=== PATIENT | female | born 1940 | race Caucasian/White ===

== ENCOUNTER 2018-07-20 18:46 | Inpatient (IN) | payer OTHER ==
[~2018-07-20] VITALS: Ht 152.4 cm; Wt 55.0 kg
[~2018-07-20 18:46] MED LIST: ARI10 PO; ATI2I IV; HEP5I SC; LIO10 PO; METOPROLOL TART25 M1 PO; VITAMIN B12500 MCG PO; ZOC20 PO
[2018-07-20 19:51] LABS: CALCIUM 11.1 mg/dL (8.5-10.1); CARBON DIOXIDE 25.1 mmol/L (21-32); CHLORIDE SERUM 105 mmol/L (98-107); CREATININE SERUM 0.8 mg/dL (0.6-1.0); GLUCOSE SERUM 141 mg/dL (74-106); POTASSIUM SERUM 3.4 mmol/L (3.5-5.1); SODIUM SERUM 142 mmol/L (136-145)
[2018-07-20 19:55] LABS: ALKALINE PHOSPHATASE 61 U/L (46-116); ALT/SGPT 47 U/L (14-59); AST/SGOT 63 U/L (15-37); BILIRUBIN TOTAL 1.3 mg/dL (0.20-1.00)
[2018-07-20 19:57] LABS: BASOPHIL % 0.4 % (0-2); PLATELET COUNT 160 x10^3mcL (130-400)
[2018-07-20 20:00] LABS: RED CELL DISTRIBUTION WIDTH 16.7 % (11.5-14.5)
[2018-07-20 20:01] LABS: ALBUMIN 3.2 g/dL (3.4-5.0)
[2018-07-20 22:52] LABS: CHOLESTEROL/HDL RATIO 4.5; MAGNESIUM 1.6 mg/dL (1.8-2.4); PHOSPHOROUS 1.8 mg/dL (2.5-4.9)
[2018-07-20 22:58] LABS: T3 TOTAL 1.09 ng/mL
[2018-07-20 23:22] VITALS: BP 164/69
[2018-07-20 23:32] VITALS: Ht 152.4 cm; Wt 55.0 kg
[2018-07-21 03:14] LABS: FREE T4 1.4 ng/dL (0.76-1.46); T4(THYROXINE) 11.7 ug/dL (4.7-13.3)
[2018-07-21 05:35] VITALS: BP 153/66
[2018-07-21 06:59] LABS: BASOPHIL % 0.5 % (0-2); PLATELET COUNT 135 x10^3mcL (130-400)
[2018-07-21 07:00] LABS: CALCIUM 9.7 mg/dL (8.5-10.1); CARBON DIOXIDE 24.2 mmol/L (21-32); CHLORIDE SERUM 108 mmol/L (98-107); CREATININE SERUM 0.6 mg/dL (0.6-1.0); GLUCOSE SERUM 112 mg/dL (74-106); MAGNESIUM 1.8 mg/dL (1.8-2.4); PHOSPHOROUS 1.6 mg/dL (2.5-4.9); POTASSIUM SERUM 3.3 mmol/L (3.5-5.1); RED CELL DISTRIBUTION WIDTH 16.6 % (11.5-14.5); SODIUM SERUM 142 mmol/L (136-145)
[2018-07-21 09:02] VITALS: BP 166/61
[2018-07-21 12:37] VITALS: BP 149/70
[2018-07-21 17:23] VITALS: BP 154/67
[2018-07-21 20:20] VITALS: BP 181/63
[2018-07-22 05:32] VITALS: BP 153/75
[2018-07-22 09:00] VITALS: BP 154/53
[2018-07-22 13:26] VITALS: BP 142/82
[2018-07-22 17:17] VITALS: BP 129/42
[2018-07-22 18:19] VITALS: BP 129/42
== END 2018-07-22 18:40 | DRG 689 ==
LOC: ED 18:46 → DU 21:48 → EDBEDREQ 21:52 → DU 22:55
PROVIDERS: Emergency Medicine; Family Medicine; ADMIT Internal Medicine Pulmonary Disease
DX: N39.0 Urinary tract infection, site not specified (principal); G93.41 Metabolic encephalopathy; E44.0 Moderate protein-calorie malnutrition; G35 Multiple sclerosis; E83.52 Hypercalcemia; E11.9 Type 2 diabetes mellitus without complications; E83.39 Other disorders of phosphorus metabolism; E83.42 Hypomagnesemia; R74.0 Nonspecific elevation of levels of transaminase and lactic acid dehydrogenase [LDH]; F03.90 Unspecified dementia, unspecified severity, without behavioral disturbance, psychotic disturbance, mood disturbance, and anxiety; Z68.24 Body mass index [BMI] 24.0-24.9, adult; Z79.84 Long term (current) use of oral hypoglycemic drugs
CPT/HCPCS: 82962; 83880; 84439; J0696; J1885; J3480; J7030; Q0092

== ENCOUNTER 2018-09-04 13:43 | Inpatient (IN) | payer OTHER ==
[~2018-09-04] VITALS: Ht 152.4 cm; Wt 47.2 kg
--- NOTE | 2018-09-04 13:47 | NUR ---
BROUGHT IN BY AMBULANCE. PT C/O FEELING SHAKY X24 HOURS. PT AFEBRILE, NO SOB, NO N/V, DENIES CP, STATES SHE HAS BACK PAIN. PER PT SHE HAS MS AND TAKES UNK MEDICATION, UNABLE TO RECALL NAME OF MEDICATION.
--- NOTE | 2018-09-04 14:37 | NUR ---
DIAPER FULL, NAYLA CARE DONE, PROTECTIVE OINT APPLIED, BUTTOCKS AND NAYLA AREA RED.
--- NOTE | 2018-09-04 14:38 | NUR ---
IO CATH USING 8FR CATH UA SAMPLE TO LAB, PT TOLERATED PROCEDURE.
[2018-09-04 14:59] LABS: microscopic required? YES; urine erythrocyte 2+ (NEGATIVE)
[2018-09-04 15:09] LABS: BASOPHIL % 1.4 % (0-2); PLATELET COUNT 168 x10^3mcL (130-400); RED CELL DISTRIBUTION WIDTH 14.2 % (11.5-14.5)
[2018-09-04 15:18] LABS: CALCIUM 11.4 mg/dL (8.5-10.1); CARBON DIOXIDE 24.9 mmol/L (21-32); CHLORIDE SERUM 107 mmol/L (98-107); GLUCOSE SERUM 121 mg/dL (74-106); POTASSIUM SERUM 3.8 mmol/L (3.5-5.1); SODIUM SERUM 141 mmol/L (136-145)
[2018-09-04 15:22] LABS: ALKALINE PHOSPHATASE 53 U/L (46-116); ALT/SGPT 43 U/L (14-59); AST/SGOT 67 U/L (15-37); BILIRUBIN TOTAL 0.68 mg/dL (0.20-1.00); LIPASE 90 IU/L (73-393); TOTAL PROTEIN, SERUM 7.6 g/dL (6.4-8.2)
--- NOTE | 2018-09-04 15:41 | NUR ---
DR ADAMS MADE AWARE OF PT/S VS.
--- NOTE | 2018-09-04 16:33 | NUR ---
PT SLEEPING ON ED GURNEY, RESPS E/U, NAD NOTED, EASILY ARROUSED, ON FULL CM, IN POSITION OF COMFORT.
--- NOTE | 2018-09-04 17:22 | NUR ---
REPORT GIVEN TO JOS BUI TO ASSUME CARE OF PT.
--- NOTE | 2018-09-04 17:30 | NUR ---
RECEIVED PT FROM ED VIA MARIA ELENA, CAME IN DUE TO WEAKNESS X10 DAYS. AAOX4. DENIES HEADACHE/DIZZINESS. FORGETFUL AT TIMES. ABLE TO FOLLOW COMMANDS. NO SOB NOTED, LUNG SOUNDS DIMINISHED ON AUSCULTATION, O2 SAT-94%, RA. DENIES CHEST PAIN/PRESSURE. C/O 6/10 ABDOMINAL PAIN, DENIES NAUSEA/VOMITING. ABDOMEN IS SOFT. VOIDS. W/ EXCORIATION AND BLANCHABLE ERYTHEMA ON THE BUTTOCKS, SCABS ON THE RUE AND ECCHYMOSIS ON RIGHT SHOULDER, EGG SEPARATOR. PLACED ON LOW AIR LOSS MATTRESS. SIDE RAILS UPX2. CALL LIGHT ON REACH. HOB ELEVATED AT 45 DEG. ENDORSED TO PRIMARY NURSE HAO INCLUDING EB=[id number]
[2018-09-04 17:51] VITALS: BP 175/91
[2018-09-04 18:00] VITALS: Ht 152.4 cm; Wt 47.2 kg
--- NOTE | 2018-09-04 18:29 | NUR ---
PT SITTING UP IN BED. NO ACUTE RESP DISTRESS NOTED ON RA. PT DENIES ANY PAIN AT THIS TIME. GIVEN PO MEDS. TOLERATED WELL. IV TO LW FLUSHED WELL. IV FLUIDS INFUSING ORDERED. PT BLOOD PRESSURE CHECKED WAS 191/103. GIVEN METOPROLOL PO. TOLERATED WELL. PT CHANGED AND REPOSITIONED SITTING UP IN BED. WILL ENDORSE TO FUND ACCOUNTING MANAGER RN. CALL LIGHT IN REACH. BED IN LOWEST POSITION.
--- NOTE | 2018-09-04 18:54 | NUR ---
PT SITTING UP IN BED. PT C/O GUERRERO. MEDICATED PER EMAR. WILL CONTINUE TO MONITOR. CALL LIGHT IN REACH. BED IN LOWEST POSITION.
--- NOTE | 2018-09-04 19:30 | NUR ---
AOX4. FORGETFUL. MED SURG. DENIES SHAKINESS/CHILLS AT THIS TIME. PULSES PALPABLE. NO EDEMA. BOWEL SOUNDS ACTIVE. INCONTINENT, CLEAN/DRY. C/O DYSURIA. GENERALIZED WEAKNESS. BLANCHABLE REDNESS TO BUTTOCKS, PETE. C/O HEADACHE, RECENTLY MEDICATED WITH TYLENOL BY DAY SHIFT RN. IV TO LH, PATENT AND INFUSING. BED IN LOWEST POSITION, 2 SIDE RAILS UP, CALL LIGHT IN REACH. INSTRUCTED TO CALL FOR ASSISTANCE.
[2018-09-04 20:49] VITALS: BP 107/88
--- NOTE | 2018-09-04 22:24 | NUR ---
PT HAD EPISODE OF INCONTINENCE. NAYLA CARE RENDERED. BLANCHABLE REDNESS NOTED TO SACRUM, LEFT PETE.
[2018-09-05 05:55] VITALS: BP 132/72
[2018-09-05 06:15] LABS: BASOPHIL % 0.1 % (0-2); PLATELET COUNT 148 x10^3mcL (130-400)
[2018-09-05 06:33] LABS: ALKALINE PHOSPHATASE 60 U/L (46-116); ALT/SGPT 45 U/L (14-59); AST/SGOT 60 U/L (15-37); BILIRUBIN TOTAL 0.43 mg/dL (0.20-1.00); CALCIUM 11.2 mg/dL (8.5-10.1); CARBON DIOXIDE 21.9 mmol/L (21-32); CHLORIDE SERUM 106 mmol/L (98-107); CREATININE SERUM 1.3 mg/dL (0.6-1.0); GLUCOSE SERUM 223 mg/dL (74-106); MAGNESIUM 1.7 mg/dL (1.8-2.4); POTASSIUM SERUM 4.2 mmol/L (3.5-5.1); SODIUM SERUM 139 mmol/L (136-145); TOTAL PROTEIN, SERUM 7.4 g/dL (6.4-8.2)
[2018-09-05 06:35] LABS: ALBUMIN 2.9 g/dL (3.4-5.0)
--- NOTE | 2018-09-05 06:48 | NUR ---
PT CONTINUES TO C/O DYSURIA PRIMARY CONCERN. NO ACUTE CHANGES. NO ACUTE DISTRESS NOTED. WILL ENDORSE TO ONCOMING RN
[2018-09-05 06:49] LABS: RED CELL DISTRIBUTION WIDTH 15.3 % (11.5-14.5)
--- NOTE | 2018-09-05 08:07 | NUR ---
ASSUMED CARE OF PATIENT. ALERT AND ORIENTED X4. S1 S2 SOUDNS NOTED. PULSES PALPABLE BILATERALLY, NO EDEMA NOTED. NO ADVERSE EFFECTS OF HEPARIN NOTED. LUNG SOUDNS DIMINISHED BILATERALLY, NO ADVENTITIOUS BREATH SOUNDS. BOWEL SOUDNS ACTIVE IN ALL 4 QQUADRANTS. COMPLAINING OF BURNING ON URINATION. GENERALIZED WEAKNESS. EVAL BY PT TODAY. NO COMPLAINTS OF PAIN. IV ON LFA PATENT AND INFSUING LR AT 50ML/HR. BED LOCKED AND IN LOWEST PSOTION. NONSKID SOCKS IN PLACE. CALL LIGHT WITHIN REACH. WILL CONTINUE TO MONITOR.
[2018-09-05 09:08] VITALS: BP 135/75
--- NOTE | 2018-09-05 09:50 | NUR ---
COMPLAINING OF HEADACHE. PRN TYLENOL PROVIDED.
--- NOTE | 2018-09-05 14:31 | NUR ---
ADL CARE PROVIDED. Z-GUARD APPLIED TO BUTTOCKS. PATIENT HAD BOWEL MOVEMENT DURING ADL CARE. STOOL HARD AND FORMED. PATIENT TURNED AND REPOSITIONED.
[2018-09-05 16:57] VITALS: BP 156/71
--- NOTE | 2018-09-05 18:45 | NUR ---
PATIENT SEEN RESTING IN BED. NO COMPLAINTS OF PAIN OR DISCOMFORT. RESPIRATIONS EVEN AND UNLABORED. WILL ENDORSE CARE TO ONCOMING RN.
--- NOTE | 2018-09-05 20:00 | NUR ---
SHIFT ASSESSMENT DONE, PT IS AAO X4 VERBAL FORGETFUL, COOPERATIVE AND CALM, SON AT BEDSIDE FOR VISIT, PT DENIES HEADACHE OR DIZZINESS, IVF INFUSING LR @ 50CC/HR IV ACCESS LFA PATENT NON INFIL, ON LOW AIRLOSS MATTRESS, REPOSITIONED TO COMFORT, PT DENIES PAIN, INCONTINENT KEEP DRY AND CLEAN, ATTENDED NEEDS CALL LIGHT AT REACH CONT TO MONITOR.
[2018-09-05 20:49] VITALS: BP 156/72
--- NOTE | 2018-09-05 21:25 | NUR ---
SPOKE TO DR. MAYO. MADE AWARE OF MG 1.7. REC'D ORDER FOR MAG RIDER 2G IVPB.
--- NOTE | 2018-09-05 22:54 | NUR ---
MG RIDER 2GMS HANGED ORDERED.
--- NOTE | 2018-09-06 00:31 | NUR ---
PT AWAKE ASKING FOR SLEEPING PILLS MEDS GIVEN PER PRN ORDER, PT ALSO C/O BACK PAIN 5/10 PER PAIN ASSESSMENT PERCOCET PO GIVEN PER PRN ORDER, REPOSITIONED TO COMFORT, DUE MEDS GIVEN, CALL LIGHT AT REACH CONT TO MONITOR.
--- NOTE | 2018-09-06 01:05 | NUR ---
PT ANXIOUS AND RESTLESS, CALLING NAMES, ATIVAN PO GIVEN PER PRN ORDER FOR ANXIETY, REPOSITIONED TO COMFORT, CONT TO MONITOR.
--- NOTE | 2018-09-06 02:52 | NUR ---
PT STILL AWAKE, CONFUSED CALLING NAMES, APPROACHED CALMLY REALITY ORIENTATION PROVIDED, REPOSITIONED TO COMFORT, KEEP DRY AND CLEAN, WILL MONITOR.
--- NOTE | 2018-09-06 04:01 | NUR ---
ENDORSED CARE TO JOS GARCIA.
--- NOTE | 2018-09-06 04:04 | NUR ---
RESUME CARE FOR THE PATIENT,PT RESTING AT THIS TIME AND WILL CONTINUE TO MONITOR.
[2018-09-06 04:51] VITALS: BP 148/75
--- NOTE | 2018-09-06 06:44 | NUR ---
PT HAD ON NA DOFF NIGHT VERY ANXIOUS AND KEEP CALLING THE CALL LIGHT V/S STABLE,KEPT CLEAN AND DRY TO TOUCH AND WILL CONTINUE TO MONITOR
--- NOTE | 2018-09-06 06:44 | NUR ---
PT HAD A RESTING NIGHT NO CHANGE AT THIS TIME,WILL CONTINUE TO MONITOR.
--- NOTE | 2018-09-06 07:15 | NUR ---
RECEIVED BEDSIDE REPORT FROM ASSOCIATE RESEARCH SCIENTIST NURSE AT THIS TIME. PATIENT RESTING COMFORTABLY IN BED. NO APPARENT DISTRESS OR DISCOMFORT NOTED. BREATHING EVEN AND UNLABORED. NO RESPIRATORY DISTRESS OR DISCOMFORT. PATIENT DENIES CHEST PAIN AT THIS TIME. IV PATENT AND INTACT. ALL QUESTIONS AND CONCERNS ADDRESSED. ALL NEEDS ATTENDED TO. WILL CONTINUE TO MONITOR
[2018-09-06 07:17] LABS: ALKALINE PHOSPHATASE 57 U/L (46-116); ALT/SGPT 44 U/L (14-59); AST/SGOT 36 U/L (15-37); BILIRUBIN TOTAL 0.4 mg/dL (0.20-1.00); CALCIUM 9.9 mg/dL (8.5-10.1); CARBON DIOXIDE 25.9 mmol/L (21-32); CHLORIDE SERUM 103 mmol/L (98-107); CREATININE SERUM 0.8 mg/dL (0.6-1.0); GLUCOSE SERUM 231 mg/dL (74-106); MAGNESIUM 1.9 mg/dL (1.8-2.4); POTASSIUM SERUM 3.4 mmol/L (3.5-5.1); SODIUM SERUM 137 mmol/L (136-145)
[2018-09-06 07:20] LABS: BASOPHIL % 0.1 % (0-2); PLATELET COUNT 141 x10^3mcL (130-400)
[2018-09-06 07:22] LABS: ALBUMIN 2.8 g/dL (3.4-5.0)
[2018-09-06 07:26] LABS: RED CELL DISTRIBUTION WIDTH 15.2 % (11.5-14.5)
[2018-09-06 09:15] VITALS: BP 158/73
--- NOTE | 2018-09-06 10:39 | NUR ---
MORNING MEDICATIONS ADMINISTERED. PATIENT TOLERATED WELL. NO ADVERSE EFFECTS NOTED. ALL NEEDS ATTENDED TO. WILL CONTINUE TO MONITOR
--- NOTE | 2018-09-06 12:40 | NUR ---
PATIENT SITTING UP IN BED EATING LUNCH AT THIS TIME. TOLERATING DIET WELL. FAMILY MEMBER AT BEDSIDE. ALL NEEDS ATTENDED TO. NO APPARENT DISTRESS OR DISCOMFORT NOTED. WILL CONTINUE TO MONITOR
--- NOTE | 2018-09-06 15:00 | NUR ---
SPOKE TO DR GUTIÉRREZ REGARDING PATIENT BLOOD PRESSURE. PER DR GUTIÉRREZ, BP ELEVATED BECAUSE OF SOLUMEDROL. PATIENT DENIES CHEST PAIN. NO NEW ORDERS PLACED. WILL CONTINUE TO MONITOR.
--- NOTE | 2018-09-06 17:54 | NUR ---
PATIENT SITTING UP IN BED EATING DINNER AT THIS TIME. PATIENT TOLERATING DIET WELL. NO APPARENT DISTRESS OR DISCOMFORT NOTED. ALL NEEDS ATTENDED TO. WILL CONTINUE TO MONITOR
[2018-09-06 18:06] VITALS: BP 168/61
--- NOTE | 2018-09-06 18:30 | NUR ---
PATIENT RESTING COMFORTABLY IN HER ROOM AT THIS TIME. NO APPARENT DISTRESS OR DISCOMFORT NOTED. IV PATENT AND INTACT. ALL QUESTIONS AND CONCERNS ADDRESSED. ALL NEEDS ATTENDED TO. SAFETY PRECAUTIONS MAINTAINED. WILL ENDORSE ALL CARE TO TOOTH CUTTER SPUR NURSE
--- NOTE | 2018-09-06 18:38 | NUR ---
PATIENT C/O 6/10 ARM PAIN AT THIS TIME. PATIENT MEDICATED WITH PERCOCET PRN PO. PATIENT TOLERATED WELL. NO ADVERSE EFFECTS NOTED.ALL NEEDS ATTENDED TO.
--- NOTE | 2018-09-06 19:48 | NUR ---
IN BED AAO X4 VERBAL CAN MAKE NEEDS KNOWN, FORGETFUL AT TIMES, DENIES PAIN NO DISTRESS, LUNGS CTA, IVF LR INFUSING @ 50CC/HR IV ACCESS LFA PATENT NON INFIL, PT HAS EXCORIATION @ THE BUTTOCKS WITH OPTIFOAM LOW AIRLOSS MATTRESS UTILIZED ABD SOFT NON TENDER BS ACTIVE X4 QUADRANTS, VOIDING NO HEMATURIA INCONTINENT ON ATB IV FOR UTI, NO ADV REACTION, SHIFT ASSESSMENT DONE, ATTENDED NEEDS, CONT TO MONITOR.
[2018-09-06 21:30] VITALS: BP 152/65
--- NOTE | 2018-09-07 00:19 | NUR ---
PT IS AWAKE ANXIOUS AND STATED CAN'T SLEEP, NO DISTRESS, REPOSITINED TO COMFORT, ATIVAN PO GIVEN PER PRN ORDER FOR ANXIETY, ENCOURAGED TO EXPRESS ANXIOUS FEELING, PT TALKING ABOUT HER FAMILY, REASSURED SAFETY, CONT TO MONITOR.
--- NOTE | 2018-09-07 02:12 | NUR ---
PERCOCET PO GIVEN FOR C/O BACK PAIN 09/22 PER ASSESSMENT, REPOSITIONED TO COMFORT, CONT TO MONITOR.
[2018-09-07 04:15] VITALS: BP 165/72
--- NOTE | 2018-09-07 06:27 | NUR ---
PATIENT SLEPT INTERMITTENT DURING THE SHIFT WITH EPISODES OF SEEKING ATTENTION ALERT ORIENTED CONVERSANT TO STAFF WHEN AWAKE, DENIES PAIN AT THIS TIME, NO DISTRESS, IVF INFUSING WELL BS 283 MG/DL PT ASKING FOR JELLO AND SNACKS OFTEN TIMES AT NIGHT, KEEP DRY AND CLEAN, DUE MEDS GIVEN, WILL ENDORSE TO INCOMING SHIFT FOR F/U CARE.
[2018-09-07 06:36] LABS: BASOPHIL % 0.2 % (0-2); PLATELET COUNT 132 x10^3mcL (130-400)
[2018-09-07 06:57] LABS: CALCIUM 9.1 mg/dL (8.5-10.1); CARBON DIOXIDE 27.4 mmol/L (21-32); CHLORIDE SERUM 102 mmol/L (98-107); CREATININE SERUM 0.8 mg/dL (0.6-1.0); GLUCOSE SERUM 293 mg/dL (74-106); MAGNESIUM 1.4 mg/dL (1.8-2.4); POTASSIUM SERUM 3.2 mmol/L (3.5-5.1); SODIUM SERUM 137 mmol/L (136-145)
[2018-09-07 07:10] LABS: RED CELL DISTRIBUTION WIDTH 15.4 % (11.5-14.5)
--- NOTE | 2018-09-07 07:20 | NUR ---
RECEIVED BEDSIDE REPORT FROM OVENS SUPERVISOR NURSE AT THIS TIME. PATIENT RESTING COMFORTABLY IN BED WATCHING TV. NO APPARENT DISTRESS OR DISCOMFORT NOTED. BREATHING EVEN AND UNLABORED. NO RESPIRATORY DISTRESS OR DISCOMFORT. PATIENT DENIES CHEST PAIN AT THIS TIME. IV PATENT AND INTACT. ALL QUESTIONS AND CONCERNS ADDRESSED. ALL NEEDS ATTENDED TO. WILL CONTINUE TO MONITOR
[2018-09-07 09:11] VITALS: BP 151/60
--- NOTE | 2018-09-07 10:29 | NUR ---
ALL MEDICATIONS ADMINISTERED. PATIENT TOLERATED WELL. NO ADVERSE EFFECTS NOTED. ALL NEEDS ATTENDED TO. WILL CONTINUE TO MONITOR.
--- NOTE | 2018-09-07 13:07 | NUR ---
PATIENT SITTING UP IN BED EATING LUNCH AT THIS TIME. PATIENT TOLERATING DIET WELL. ABLE TO FEED SELF. NO APPARENT DISTRESS OR DISCOMFORT NOTED. ALL NEEDS ATTENDED TO. WILL CONTINUE TO MONITOR
--- NOTE | 2018-09-07 14:27 | NUR ---
PATIENT C/O GENERALIZED BODY PAIN AT THIS TIME. PATIENT MEDICATED WITH PERCOCET PO. PATIENT TOLERATED WELL. NO ADVERSE EFFECTS NOTED. ALL NEEDS ATTENDED TO. WILL CONTINUE TO MONITOR
[2018-09-07 16:16] VITALS: BP 123/66
--- NOTE | 2018-09-07 17:25 | NUR ---
PATIENT C/O DRY EYES. SPOKE TO DR GUTIÉRREZ REGARDING DRY EYES. PER DR GUTIÉRREZ, OKAY TO PUT TELEPHONE ORDER FOR ARTIFICAL TEARS, BOTH EYES, Q4HP. TELEPHONE ORDER READ BACK, CONFIRMED, AND FOLLOWED THROUGH. ALL NEEDS ATTENDED TO. WILL CONTINUE TO MONITOR
--- NOTE | 2018-09-07 18:43 | NUR ---
PATIENT RESTING COMFORTABLY IN BED AT THIS TIME. NO APPARENT DISTRESS OR DISCOMFORT NOTED. IV PATENT AND INTACT. ALL QUESTIONS AND CONCERNS ADDRESSED. ALL NEEDS ATTENDED TO. SAFETY PRECAUTIONS MAINTAINED. WILL ENDORSE ALL CARE TO LAYAWAY CLERK NURSE
--- NOTE | 2018-09-07 19:45 | NUR ---
AWAKE AND VERBALLY RESPONISVE, PT CONFUSED AND FORGETFUL. SKIN WARM AND DRY TO TOUCH WITH SCATTERED SACBS TO BUE/BLE. PT VERY ANXIOUS AT THIS TIME, KEEPS ON REPEATING WORDS/REQUESTING MEDICATION FOR ANXIETY AND SLEEPING PILL. WILL CONTINUE TO MONITOR,
[2018-09-07 20:59] VITALS: BP 144/74
--- NOTE | 2018-09-07 22:00 | NUR ---
PT WAS GIVEN AMBIEN/ATIVAN REQUESTED, BUT NOT WEFFECTIVE, KEEPS ON CALLING FOR HELP/PRESSING THE CALL LIGHT EVERY 5-10MINS, PT UNABLE TO REMEMBER THE REASON WHY SHE PRESSED THE RED BUTOON /CALL LIGHT. ENCOURAGED TO VERBALIZED FEELINGS/CONCERN.
--- NOTE | 2018-09-08 01:35 | NUR ---
PT C/O FEELING ANXIOUS. ATIVAN 1 MG PO GIVEN PER ORDER.
--- NOTE | 2018-09-08 03:00 | NUR ---
ABLE TO HAVE INTERRUPTED NAPS. ALL NEEDS ANTICPATED. KEPT CLEAN AND DRY.
[2018-09-08 06:15] VITALS: BP 141/72
--- NOTE | 2018-09-08 06:35 | NUR ---
BLOOD SUGAR TAKEN 133MG/DL, NO GLYCEMIC REACTION NOTED. KEPT CLEANA ND DRY.
--- NOTE | 2018-09-08 07:23 | NUR ---
REPORT TAKEN FROM VP ANALYTICS NURSE AT THE BEDSIDE. PT RESTING COMFORTABLY, AWAKE AND ALERT, ORIENTED X 3. REPORTS PAIN IN BLADDER AT THIS TIME, AND DYSURIA. IN NAD, DENIED SOB AT THIS TIME. WILL CONTINUE TO MONITOR.
[2018-09-08 07:29] LABS: BASOPHIL % 0.1 % (0-2); PLATELET COUNT 136 x10^3mcL (130-400)
[2018-09-08 07:33] LABS: CALCIUM 7.7 mg/dL (8.5-10.1); CARBON DIOXIDE 26.1 mmol/L (21-32); CHLORIDE SERUM 104 mmol/L (98-107); CREATININE SERUM 0.6 mg/dL (0.6-1.0); GLUCOSE SERUM 172 mg/dL (74-106); MAGNESIUM 1.5 mg/dL (1.8-2.4); POTASSIUM SERUM 3.9 mmol/L (3.5-5.1); SODIUM SERUM 138 mmol/L (136-145)
[2018-09-08 07:57] LABS: RED CELL DISTRIBUTION WIDTH 15.8 % (11.5-14.5)
[2018-09-08 09:13] VITALS: BP 153/69
[2018-09-08 17:23] VITALS: BP 153/60
--- NOTE | 2018-09-08 20:00 | NUR ---
RECEIVED PT IN BED, RESTING QUIETLY. A/O , FORGETFUL AT TIMES. ABLE TO VERBALIZE NEEDS. RESP. EVEN AND UNLABORED. ON ROOM AIR AT THIS TIME, NO ACUTE DISTRESS NOTED. MEDSURG PT, DENIES CP OR AND DISCOMFORT AT THIS TIME. IVF, LR AT 50ML/HR, INTACT AND INFUSING VIA LFA, SITE CLEAR. INCONT. OF URINE, CLEANED AND REPOSITIONED FOR COMFORT. CALL LIGHT WITHIN REACH. WILL CONTINUE TO MONITOR.
[2018-09-08 20:40] VITALS: BP 161/66
--- NOTE | 2018-09-08 22:08 | NUR ---
CLEMENTINA GIVEN FOR SLEEP PER PT,S REQUEST. WILL CONTINUE TO MONITOR.
--- NOTE | 2018-09-09 01:52 | NUR ---
RESTING QUIETLY IN BED WITH EYES CLOSED, APPEARS ASLEEP, EASILY AROUSABLE. RESP. EVEN AND UNLABORED. NO ACUTE DISTRESS NOTED. CALL LIGHT WITHIN REACH. WILL CONTINUE TO MONITOR.
--- NOTE | 2018-09-09 03:55 | NUR ---
COMPLAINED OF GEN. BODY PAIN, 09/22, REQUESTING PAIN MED, MEDICATED WITH PERCOCET PO ORDERED. WILL CONTINUE TO MONITOR.
--- NOTE | 2018-09-09 04:30 | NUR ---
ASLEEP, EASILY AROUSABLE. RESP. EVEN AND UNLABORED. NO ACUTE DISTRESS NOTED. WILL CONTINUE TO MONITOR.
[2018-09-09 06:40] VITALS: BP 155/65
[2018-09-09 06:42] LABS: BASOPHIL % 0.1 % (0-2); PLATELET COUNT 134 x10^3mcL (130-400)
[2018-09-09 06:44] LABS: RED CELL DISTRIBUTION WIDTH 15.8 % (11.5-14.5)
--- NOTE | 2018-09-09 06:54 | NUR ---
SLEPT WELL. NO COMPLAINTS NOTED AT THIS TIME. DUE MEDS GIVEN ORDERED, BOBBY. WELL. AFEBRILE AND VITAL SIGNS STABLE. DENIES ANY DISCOMFORT AT THIS TIME. KEPT COMFORTABLE AND ALL NEEDS ATTENDED TO. WILL ENDORSE TO INCOMING NURSE.
[2018-09-09 06:59] LABS: CALCIUM 7.8 mg/dL (8.5-10.1); CARBON DIOXIDE 22.5 mmol/L (21-32); CHLORIDE SERUM 103 mmol/L (98-107); CREATININE SERUM 0.8 mg/dL (0.6-1.0); GLUCOSE SERUM 351 mg/dL (74-106); MAGNESIUM 1.6 mg/dL (1.8-2.4); POTASSIUM SERUM 3.5 mmol/L (3.5-5.1); SODIUM SERUM 140 mmol/L (136-145)
--- NOTE | 2018-09-09 07:05 | NUR ---
RECEIVED PT FROM ENGINEERING OFFICER NURSE. PT RESTING IN BED, AOX4. RESP EVEN AND UNLABORED ON RA. NO ACUTE DISTRESS NOTED AT THIS TIME. IV TO LFA W/ NO SIGNS OF INFILTRATION, IVF INFUSING WELL. BED IN LOWEST POSITION AND CALL LIGHT WITHIN REACH. WILL CONTINUE TO MONITOR.
[2018-09-09 10:14] VITALS: BP 148/71
--- NOTE | 2018-09-09 12:25 | NUR ---
PT RESTING IN BED, AOX3, RESP EVEN AND UNLABORED ON RA. REPORTED HEADACHE RATED 9/10. MEDICATED ORDERED, ASSISTED TO COMFORTABLE POSITION IN BED. BED IN LOWEST POSITION AND CALL LIGHT WITHIN REACH. WILL CONTINUE TO MONITOR.
[2018-09-09 17:38] VITALS: BP 150/59
--- NOTE | 2018-09-09 17:45 | NUR ---
WV RESTING IN BED, AOX3, RESP EVEN AND UNLABORED ON RA. REPORTED HEADACHE AND BODYACHE RATED 8/10. MEDICATED ORDERED. ASSISTED TO COMFORTABLE POSITION IN BED. IV TO L HAND W/ NO SIGNS OF INFILTRATION, IVF INFUSING WELL. BED IN LOWEST POSITION AND CALL LIGHT WITHIN REACH. WILL ENDORSE TO ONCOMING NURSE.
[2018-09-09 19:32] LABS: microscopic required? YES; urine erythrocyte TRACE (NEGATIVE)
--- NOTE | 2018-09-09 20:00 | NUR ---
RECEIVED PT IN BED, RESTING QUIETLY. ALERT AND ORIENTED. FORGETFUL AT TIMES. DENIES HEADACHE/DIZZINESS. RESP. EVEN AND UNLABORED.LUNG SOUNDS CLEAR BILAT. ON ROOM AIR, NO ACUTE DISTRESS NOTED. NO TELE. DENIES CP OR ANY DISCOMFORT AT THIS TIME. IVF, LR AT 50ML/HR, INTACT AND INFUSING VIA LFA, SITE CLEAR. ASSISTED WITH HS CARE. CALL LIGHT WITHIN REACH. WILL CONTINUE TO MONITOR.
[2018-09-09 20:03] VITALS: BP 157/80
--- NOTE | 2018-09-09 21:33 | NUR ---
REQUESTED SLEEPING MED, MEDICATED WITH AMBIEN PO ORDERED. WILL CONTINUE TO MONITOR.
[2018-09-10] VITALS (7 sets, daily range): BP systolic 157–173; BP diastolic 65–78
--- NOTE | 2018-09-10 06:20 | NUR ---
AFEBRILE AND VITAL SIGNS STABLE. NO COMPLAINTS NOTED AT THIS TIME. IVF INTACT AND INFUSING WELL, SITE CLEAR.DUE MEDS GIVEN ORDERED, BOBBY. WELL. INCONT. OF URINE/STOOL,CLEANED AND KEPT COMFORTABLE. TURNED AND REPOSITIONED Q2HRS AND PRN. RESP. EVEN AND UNLABORED. NO ACUTE DISTRESS NOTED. CALL LIGHT WITHIN REACH. WILL CONTINUE TO MONITOR.
[2018-09-10 06:25] LABS: BASOPHIL % 0.3 % (0-2); PLATELET COUNT 170 x10^3mcL (130-400)
[2018-09-10 06:31] LABS: RED CELL DISTRIBUTION WIDTH 15.9 % (11.5-14.5)
[2018-09-10 06:43] LABS: ALKALINE PHOSPHATASE 59 U/L (46-116); ALT/SGPT 97 U/L (14-59); AST/SGOT 63 U/L (15-37); BILIRUBIN DIRECT 0.11 mg/dL (0.0-0.2); BILIRUBIN TOTAL 0.4 mg/dL (0.20-1.00); CALCIUM 8.2 mg/dL (8.5-10.1); CHLORIDE SERUM 106 mmol/L (98-107); CREATININE SERUM 0.7 mg/dL (0.6-1.0); GLUCOSE SERUM 226 mg/dL (74-106); POTASSIUM SERUM 3.6 mmol/L (3.5-5.1); SODIUM SERUM 144 mmol/L (136-145)
[2018-09-10 06:53] LABS: ALBUMIN 2.4 g/dL (3.4-5.0); TOTAL PROTEIN, SERUM 6.1 g/dL (6.4-8.2)
--- NOTE | 2018-09-10 06:59 | NUR ---
PHYSICAL THERAPY DAILY NOTES CO-SIGN All documentation done by the Aerospace Physiological Technician for 09/10/18 has been reviewed. I agree with the documentation. Reviewed/Co-Signed by: Danielle Anderson PT Documentation Done by:DEVIN GARCIA PTA FOR 09/09/18
--- NOTE | 2018-09-10 07:43 | NUR ---
AT 0710 - RECEIVED PATIENT FROM NIGHT NURSE. AWAKE, ALERT. APPEARS ORIENTED TO PERSON, PLACE AND SITUATION. IV INFUSING NS AT 50 ML/HR. CONTINUING TO MONITOR.
--- NOTE | 2018-09-10 09:13 | NUR ---
PATIENT C/O HEADACHE. SAYS THAT TYLANOL IS NOT EFFECTIVE. HAD BEEN RECEIVING PERCOCET PREVIOUSLY BUT IT IS NOT ON PATIENT PROFILE AT THIS TIME. CALL PLACED FOR DR GARCIA FOR ORDERS.
--- NOTE | 2018-09-10 09:53 | NUR ---
NEW ORDERS RECEIVED FROM DR HAGEN.
--- NOTE | 2018-09-10 10:34 | NUR ---
AT 1000 - MEDICATED WITH PERCOCET FOR C/O HEADACHE. AT 1030 - PHYSICAL THERAPY AT BEDSIDE.
--- NOTE | 2018-09-10 12:03 | NUR ---
AT 1145 - RECEIVED CLAL FROM PATIENT'S . UPDATED ON CURRENT PLAN OF CARE. PATIENT HAS BEEN UP WITH PHYSICAL THERAPY.
--- NOTE | 2018-09-10 16:08 | NUR ---
QUIET AFTERNOON. SLEEPING ON AND OFF.
[2018-09-10] MEDS ORDERED: ATIVAN0.5 M1 PO (18:34)
--- NOTE | 2018-09-10 19:12 | NUR ---
AT 1630 - RECEIVED WORD THAT PATIENT IS TO BE DISCHARGED TO [facility] FOR REHAB. AT BEDSIDE. BOTH AGREEABLE TO TRANSFER. TRANSFER ACKNOWLEDGEMENT FORM SIGNED BY PATIENT AND . AT 1800 - PATIENT HAS EATEN DINNER. REPORT GIVEN TO VEE AT [facility]. THEY WOULD LIKE PATIENT TO TRANFER WITH [facility]. AT 1825 - DR MARIA ESTHER JACKSON FOR CLARIFICATION OF ORDERS. CHANGE IV ATIVAN TO PO ATIVAN 0.5 MG PO TID PRN INSTEAD. OK TO CONTINUE HEPARIN SQ. AT 1910 - DISCHARGED TO [facility] VIA GURNEY.
--- NOTE | 2018-09-11 14:19 | NUR ---
PHYSICAL THERAPY DAILY NOTES CO-SIGN All documentation done by the Instructional Aide for 09/11/18 has been reviewed. I agree with the documentation. Reviewed/Co-Signed by: Danielle Anderson PT Documentation Done by:DEVIN GARCIA HOT ROLL INSPECTOR 09/10/18
== END 2018-09-10 19:15 | DRG 60 ==
LOC: ED 13:43 → MU 16:34 → EDBEDREQ 16:36 → MU 17:30
PROVIDERS: Emergency Medicine; Internal Medicine; Internal Medicine Pulmonary Disease; ADMIT Internal Medicine Pulmonary Disease
DX: G35 Multiple sclerosis (principal); E83.52 Hypercalcemia; I10 Essential (primary) hypertension; R54 Age-related physical debility; E78.5 Hyperlipidemia, unspecified; F41.8 Other specified anxiety disorders; F32.9 Major depressive disorder, single episode, unspecified; F03.90 Unspecified dementia, unspecified severity, without behavioral disturbance, psychotic disturbance, mood disturbance, and anxiety; Z79.899 Other long term (current) drug therapy; Z68.20 Body mass index [BMI] 20.0-20.9, adult
CPT/HCPCS: 82962; 83880; 97116-GP; 97530-GP; G0378; J0696; J1644; J1815; J2920; J3475; J7040; J7050; J7120; J7121

== ENCOUNTER 2018-10-01 10:50 | Inpatient (IN) | payer OTHER ==
[~2018-10-01] VITALS: Ht 152.4 cm; Wt 46.4 kg
[~2018-10-01 10:50] MED LIST changes: +ATIVAN0.5 M1 PO
--- NOTE | 2018-10-01 11:05 | NUR ---
PATIENT ANGEL LUIS BRANHAM ALS, FOUND FROM HOME, PER REPORT PATIENT WAS ALOC SINCE LAST NIGHT. WAS BROUGHT TO BEDSIDE AND WAS FOUND WITH HR IN THE 30S-40S. PATIENT IS ABLE TO OPEN EYES WHEN CALLED UP, IS ABLE TO ANSWER SOME QUESTIONS BUT SLOWLY. PATIENT UNABLE TO FOLLOW ALL COMMANDS. PATIENT DOES STS HER FULL NAME AND BIRTHDAY BUT UNABLE TO RECALL TO TIME AND PLACE. PATIENT FOUND WITH DRIED FECAL MATTER ON BILATERAL LEGS, BILATERAL FEET, AND BILATERAL THIGHS. MSE PERFORMED BY DR. OSMAN
--- NOTE | 2018-10-01 11:27 | NUR ---
OPEN SKIN TEAR NOTED ON RIGHT GLUTEAL FOLD. PICTURES TAKEN.
[2018-10-01 11:42] LABS: BASOPHIL % 0.7 % (0-2); PLATELET COUNT 352 x10^3mcL (130-400)
[2018-10-01 11:58] LABS: CALCIUM 11.5 mg/dL (8.5-10.1); CARBON DIOXIDE 26.5 mmol/L (21-32); CHLORIDE SERUM 101 mmol/L (98-107); CREATININE SERUM 1.8 mg/dL (0.6-1.0); GLUCOSE SERUM 267 mg/dL (74-106); POTASSIUM SERUM 3.1 mmol/L (3.5-5.1); SODIUM SERUM 138 mmol/L (136-145)
[2018-10-01 12:03] LABS: ALKALINE PHOSPHATASE 91 U/L (46-116); ALT/SGPT 46 U/L (14-59); AST/SGOT 53 U/L (15-37); BILIRUBIN TOTAL 0.9 mg/dL (0.20-1.00); TOTAL PROTEIN, SERUM 7.5 g/dL (6.4-8.2)
[2018-10-01 12:04] LABS: ALBUMIN 3.2 g/dL (3.4-5.0)
--- NOTE | 2018-10-01 12:24 | NUR ---
COMMUNICATED TO MD THAT THE PATIENT'S HR IS IN THE 40S. PATIENT IS RESPONDING TO VERBAL COMMUNICATION, ABLE TO ANSWER QUESTIONS, ABLE TO VERBALIZE FULL NAME AND DATE OF , BUT STILL UNABLE TO VERBALIZE TIME AND PLACE
--- NOTE | 2018-10-01 13:06 | NUR ---
PT RESTING AT BEDSIDE IN NAD. AROUSABLE BY STERNAL RUB, ABLE TO ANSWER QUESTIONS, BUT ANSWERS ARE NOT COMPREHENSIBLE. PATIENT HR HAS BEEN TRENDING IN THE 40S WITH THE PATIENT BEING AWAKE.
[2018-10-01 13:12] LABS: microscopic required? YES; urine erythrocyte 3+ (NEGATIVE)
[2018-10-01] MEDS ORDERED: TESSALON PERLE100 MG (13:26)
[2018-10-01] MEDS ORDERED: NOR10T (13:27)
--- NOTE | 2018-10-01 13:28 | NUR ---
PATIENT SPEAKING WITH AT BEDSIDE. PATIENT ABLE TO ANSWER ALL QUESTIONS FROM . BREATHING IS SHALLOW, BILATERAL CHEST RISE NOTED.
--- NOTE | 2018-10-01 13:30 | NUR ---
PER , PATIENT WAS SEEN WITH HER NORMAL BASELINE OF YESTERDAY EVENING. STS PATIENT WAS ABLE TO AMBULATE YESTERDAY WITH A WALKER, AND PATIENT WAS ABLE TO SPEAK CLEARLY IN FULL SENTENCES. STS AROUND MIDNIGHT, HE STARTED NOTICING PATIENT HAD ALOC AND STS THAT HE WANTED HER TO SLEEP AND SEE WHAT HAPPENS THE FOLLOWING DAY. STS THEY WOKE UP THE NEXT DAY AND PATIENT'S LOC DID NOT IMPROVE FROM THE NIGHT PRIOR.
--- NOTE | 2018-10-01 13:42 | NUR ---
PATIENT REQUESTS FOR WATER. APPROVED BY
--- NOTE | 2018-10-01 14:31 | NUR ---
Total fluid resuscitation amount ordered for patient is 1000 mls. At time of admission/transfer to [facility] , 500 mls have infused. Last BP was 139/69 and JOS BUI is aware that BP will need to be reassessed after fluid infusion completed.
--- NOTE | 2018-10-01 14:31 | NUR ---
REPORT GIVEN TO JOS BUI TELE
--- NOTE | 2018-10-01 14:55 | NUR ---
RECEIVED PT FROM ED VIA [facility], CAME IN DUE TO ALOC. PT STATED THAT SHE TOOK 1 TABLET OF BACLOFEN TODAY. PT IS DROWSY, EASILY AROUSABLE TO VERBAL STIMULI. ORIENTED TO PERSON, PLACE AND BIRTHDATE. ABLE TO FOLLOW SIMPLE COMMANDS, PUPILS ARE FIXED. STATED THAT SHE HAS POOR VISION. NO SOB NOTED, LUNG SOUNDS DIMINISHED ON AUSCULTATION, O2 SAT=95% ON 2LPM/NC. DENIES CHEST PAIN/PRESSURE, SINUS BRADYCARDIA W/ DEPRESSED T WAVE, HR AT 41. DENIES ABDOMINAL DISCOMFORT. W/ KAZAKH 16 CAMPA CATHETER DRAINING W/ CLOUDY URINE. W/ BALNCHABLE ERYTHEMA ON THE BUTTOCKS (OPTIFOAM APPLIED) AND BILATERAL HIPS, PETE. PT REPEATEDLY VERBALIZING THAT SHE HAS POOR VISION AND HER BIRTHDATE. SIDE RAILS UPX2. CALL LIGHT ON REACH. PRIMARY NURSE HAO AT BEDSIDE FOR CONTINUITY OF CARE
[2018-10-01 15:09] VITALS: BP 121/41
[2018-10-01 15:36] VITALS: Ht 152.4 cm; Wt 46.4 kg
--- NOTE | 2018-10-01 16:22 | NUR ---
SPOKE WITH DR. GARCIA REGARDING DIET ORDER. PER DR. JOSE LARSEN FOR PT TO HAVE REGULAR DIET.
--- NOTE | 2018-10-01 16:59 | NUR ---
CALLED AND SPOKE TO AND MADE HIM AWARE OF PT HR-35 AND FLUCTUATING BUT DROPS DOWN BELOW 40'S. UNABLE TO TELL IF PT IS ASYMPTOMATIC D/T CONFUSION. NEW ORDER RECEIVED TO GIVE ATROPINE 0.5MG IV Q2PRN FOR HR BELOW 45. HAO ARGUELLO ASSIGNED TO THIS PT MADE AWARE OF ABOVE. WILL CONT TO MONITOR.
--- NOTE | 2018-10-01 17:24 | NUR ---
CALLED AND SPOKE TO AND UPDATED HIM OF PT CURRENT STATUS, NEW ORDER RECEIVED TO GIVE GLUCAGON 3MG IV X1 DOSE. SAYS IF LESS THAN AN HOUR AND PT HR DROPS BELOW 40'S AGAIN TO TRANSFER PT IN ICU FOR CLOSE MONITORING AND IV DRIP. NEW ORDER RECEIVED TO CONSULT (RIG OPERATOR) HAO ARGUELLO ASSIGNED TO THIS PT MADE AWARE OF ABOVE.
[2018-10-01 17:31] VITALS: BP 111/72
--- NOTE | 2018-10-01 17:32 | NUR ---
PT SITTING UP IN BED. AWAKE/ALERT. PT ASKING FOR WATER. NO ACUTE RESP DISTRESS NOTED ON 3L NC. APICAL PULSE TAKEN HR 42. GIVEN ATROPINE IV PER ORDER. IV FLUSHED WELL. NO REDNESS OR SWELLING NOTED. PT HR CURRENTLY 57. WILL CONTINUE TO MONITOR. CALL LIGHT IN REACH. BED IN LOWEST POSITION.
--- NOTE | 2018-10-01 18:46 | NUR ---
PT SITTING UP IN BED. NO ACUTE RESP DISTRESS NOTED ON 3L NC. IV PATENT AND INFUSING TO LFA. NO REDNESS OR SWELLING NOTED. GIVEN GLUCAGON IV. PT C/O FEELING NAUSEOUS. MEDICATED PER EMAR. HOB ELEVATED IN HIGH FOWLERS. HR ON TELE MAINTAINING 54 TO 55. PT CONFUSED. PT ASKING IF SHE CAN EAT DINNER. REORIENTED PT. WILL ENDORSE TO BERRY GROWER RN. CALL LIGHT IN REACH. BED IN LOWEST POSITION.
--- NOTE | 2018-10-01 19:34 | NUR ---
REPORT GIVEN TO RAYSA ARGUELLO. ALL QUESTIONS ADDRESSED.
--- NOTE | 2018-10-01 19:48 | NUR ---
RECIEVED PT FROM DAY SHIFT RN. PT AAOX2 DENIES HEADACHE OR DIZZINESS. BREATHING EVEN AND UNLABORED ON NC 3L/MIN NO SOB NOTED. TELE #9 SB HR 52. NO SIGNS OF DISTRESS NOTED. PT HAS A F/C IN PLACE. PT ON AIR MATRESS. PT HAS OPTIFOAM ON BUTTOCKS, CDI. GENERALIZED WEAKNESS. IV LFA PATENT, INFUSING WELL. CALL BUTTON WITHIN REACH. SAFETY PRECAUTIONS IN PLACE. WILL CONTINUE TO MONITOR.
[2018-10-01 21:41] VITALS: BP 110/92
--- NOTE | 2018-10-01 22:30 | NUR ---
PT VERY AGITATED AT THIS TIME. PT ATTEMPTING TO GET OUT OF BED AFTER INSTRUCTED PT TO STAY IN BED, PT IS A FALL RISK. PT ALSO ATTEMPTING TO PULL OUT IV LINE AND REMOVING TELE MONITOR. [facility] CALLED. RECEIVED A CALL BACK FROM DR HAGEN. PER DR HAGEN OKAY TO INITIATE BILATERAL SOFT RESTRAINTS.
--- NOTE | 2018-10-01 22:43 | NUR ---
PLACED PT ON BILATERAL SOFT WRIST RESTRAINTS, ORDERED. NO SIGNS OF DISTRESS NOTED AT THIS TIME. SAFETY PRECAUTIONS IN PLACE. WILL MONITOR.
--- NOTE | 2018-10-01 23:31 | NUR ---
PT ON TELE #14 HR 67, NO SIGNS OF DISTRESS NOTED. WILL MONITOR.
--- NOTE | 2018-10-02 02:54 | NUR ---
PT REPOSITIONED AT THIS TIME. NC 3L/MIN WITH NO SOB NOTED. TELE #14 HR 70. NO SIGNS OF ACUTE DISTRESS NOTED. BILATERAL WRIST SOFT RESTRAINT. SKIN AND CIRCULATION WNL. SAFETY PRECAUTIONS IN PLACE. WILL CONTINUE TO MONITOR.
--- NOTE | 2018-10-02 04:15 | NUR ---
PT AWAKE, DENIES PAIN. NC IN PLACE. NO SOB NOTED. IV PATENT, INFUSING WELL. TELE 14 HR 75 NO SIGNS OF DISTRESS NOTED. SAFETY PRECAUTIONS IN PLACE. SOFT RESTRAINTS BUE IN PLACE. SKIN/CIRCULATION WNL. WILL MONITOR.
[2018-10-02 05:36] VITALS: BP 122/51
[2018-10-02 06:33] LABS: BASOPHIL % 0.7 % (0-2); PLATELET COUNT 297 x10^3mcL (130-400)
--- NOTE | 2018-10-02 06:40 | NUR ---
PT SLEPT VERY POORLY THROUGHOUT THE NIGHT WITH NO SIGNS OF DISTRESS NOTED. HR MAINTAIN ABOVE 50 THROGUHOUT THE NIGHT. HR AT THIS TIME 75BPM. BREATHING EVEN AND UNLABORED ON NC 3L/MIN WITH NO SOB NOTED. IV PATENT, INFUSING WELL WITH NO SIGNS OF INFILTRATION NOTED. BILATERAL SOFT WRIST RESTRAINTS IN PLACE, SKIN AND CIRCULATION WNL. TURN AND REPOSITIONED EVERY TWO HOURS. SAFETY PRECAUTIONS IN PLACE. CALL BUTTON WITHIN REACH. WILL CONTINUE TO MONITOR AND ENDORSE CARE TO DAY SHIFT RN.
[2018-10-02 06:50] LABS: RED CELL DISTRIBUTION WIDTH 15.6 % (11.5-14.5)
[2018-10-02 06:58] LABS: ALKALINE PHOSPHATASE 76 U/L (46-116); ALT/SGPT 51 U/L (14-59); AST/SGOT 65 U/L (15-37); BILIRUBIN TOTAL 0.6 mg/dL (0.20-1.00); CALCIUM 10.7 mg/dL (8.5-10.1); CARBON DIOXIDE 23.5 mmol/L (21-32); CHLORIDE SERUM 110 mmol/L (98-107); CREATININE SERUM 1.3 mg/dL (0.6-1.0); GLUCOSE SERUM 121 mg/dL (74-106); MAGNESIUM 1.6 mg/dL (1.8-2.4); POTASSIUM SERUM 4.1 mmol/L (3.5-5.1); SODIUM SERUM 143 mmol/L (136-145); TOTAL PROTEIN, SERUM 6.3 g/dL (6.4-8.2)
[2018-10-02 06:59] LABS: ALBUMIN 2.7 g/dL (3.4-5.0)
--- NOTE | 2018-10-02 07:20 | NUR ---
RECEIVED PT FROM FRONT OFFICE REPRESENTATIVE RN. A/OX2. PT CONFUSED. PT ATTEMPTING TO REMOVES IV, CAMPA CAHTETER, AND NC. BILATERAL SOFT WRIST RESTRAINTS IN PLACE. CIRCULATION WNL. PT ASKING IF SHE CAN EAT DINNER. REPOSITIONED PT SITTING UP IN BED. IV PATENT AND INFUSING LFA. NO REDNESS OR SWELLING NOTED. WILL CONTINUE TO MONITOR. CALL LIGHT IN REACH. BED IN LOWEST POSITION. AIR MATTRESS IN PLACE.
--- NOTE | 2018-10-02 07:34 | NUR ---
PT AWAKE, BREATHING EVEN AND UNLABORED ON NC 3L/MIN NO SIGNS OF DISTRESS NOTED. BUE SOFT RESTRAINTS IN PLACE, SKIN AND CIRCULATION WNL. ENDORSED CARE TO DAY SHIFT RN, ALL QUESTIONS ADDRESSED.
--- NOTE | 2018-10-02 08:20 | NUR ---
PT REPOSITIONED SITTING UP IN BED. TOLERATED WELL. IV PATENT AND INFUSING TO LFA. NO REDNESS OR SWELLING NOTED. PT TRYING TO REMOVED LINES. BILATERAL SOFT WRIST RESTRAINTS IN PLACE. CIRCULATION WNL. CAMPA CATHETER EMPTIED TO 990 ML OF CLOUDY DARK YELLOW URINE. LAV CREWMAN AT BEDSIDE FOR CARDIAC ECHO. BED ALARM IN PLACE. WILL CONTINUE TO MONITOR. CALL LIGHT IN REACH. BED IN LOWEST POSITION.
[2018-10-02 09:00] VITALS: BP 151/68
--- NOTE | 2018-10-02 09:33 | NUR ---
PT SLOUCHING IN BED. RESPOSITIONED PT SITTING UP. PT ATTEMPTING REMOVE IV, TELE MONITOR AND CAMPA CATHETER. BILATERAL SOFT WRIST RESTRAINTS IN PLACE. PT CHANGED AND REPOSITIONED ON LT SIDE. IV PATENT AND INFUSING TO LFA. NO REDNESS OR SWELLING NOTED. WILL CONTINUE TO MONITOR. BED ALARM IN PLACE. BED IN LOWEST POSITION. CALL LIGHT IN REACH.
[2018-10-02 10:12] VITALS: BP 151/68
--- NOTE | 2018-10-02 12:20 | NUR ---
SON AT BEDSIDE LUCIANO ROJAS. SON EXPRESSING CONCERNS FOR PT WELL BEING WHILE AT HOME. PER LUCIANO PT IS OFTEN LEFT ALONE SOILED AND HE DOES NOT KNOW IF IS CARING FOR PT MEDICAL NEEDS. SON EXPRESSING CONCERN TO HAVE PT GO TO A FPC. SPOKE WITH PHYSICAL THERAPIST LISA, PER LISA RECOMMENDS PT CONTINUE PHYSICAL THERAPY AT SNF. SPOKE WITH DR. GARCIA, PER DR. GARCIA HE WILL CONSIDER SNF FOR WHEN PT IS MEDICALLY CLEAR.
--- NOTE | 2018-10-02 13:18 | NUR ---
PT SITTING UP IN BED. EATING LUNCH. PT UPSET. PT STATES SHE DOES NOT NEED TO BE HERE AND WANTS TO GO HOME. PT TRYING TO REMOVED IV AND TELE MONITOR. BILATERAL SOFT WRIST RESTRAINTS IN PLACE. CIRCULATION WNL. IV PATENT AND INFUSING TO LFA. NO REDNESS OR SWELLING NOTED. IV ANTIBIOTICS INFUSING ORDERED. WILL CONTINUE TO MONITOR. CALL LIGHT IN REACH. BED IN LOWEST POSITION.
--- NOTE | 2018-10-02 13:47 | NUR ---
SPOKE WITH [facility] SENIOR ADMINISTRATIVE SUPPORT INFORMED HER OF SON LUCIANO TERRELL CONCERNS AND PLAN FOR PT DISCHARGE.
[2018-10-02 14:17] VITALS: BP 144/77
--- NOTE | 2018-10-02 15:21 | NUR ---
PT SITTING UP IN BED. DROWSY BUT AROUSABLE. RESPIRATIONS EQUAL AND UNLABORED ON 2L NC. NO ACUTE RESP DISTRESS NOTED. PT REPOSITIONED SITTING UP IN BED. CAMPA CATHETER REMOVED INTACT. PT CHANGED. IV PATENT AND INFUSING LFA. NO REDNESS OR SWELLING NOTED. WILL CONTINUE TO MONITOR. BED ALARM. BED IN LOWEST POSITION. CALL LIGHT IN REACH.
--- NOTE | 2018-10-02 17:17 | NUR ---
SPOKE WITH [employer] VISITING HOUSEKEEPER. JANETTE AMES WILL HAVE A ADMINISTRATIVE ASSISTANT COORDINATOR FOLLOW UP WITH THE PT TOMORROW.
--- NOTE | 2018-10-02 18:47 | NUR ---
PT SITTING UP IN BED. DROWSY BUT AROUSABLE. RESPIRATIONS EQUAL AND UNLABORED ON RA. NO ACUTE RESP DISTRESS NOTED. BILATERAL SOFT WRIST RESTRAINTS IN PLACE, CIRCULATION WNL. PT ATTEMPTING TO REMOVE IV AND TELE. WILL ENDORSE TO NEWSPAPER SUBSCRIPTION SOLICITOR RN. CALL LIGHT IN REACH. BED IN LOWEST POSITION.
--- NOTE | 2018-10-02 19:01 | NUR ---
PT BLOOD PRESSURE IN RT ARM 186/63, RT ARM 188/93. CALLED DR. GARCIA. PER DR. GARCIA ORDERED NIFEDIPINE 20 MG PO Q8HR TO BE GIVEN NOW. CONFIRMED ORDER TORB.
--- NOTE | 2018-10-02 19:50 | NUR ---
PT IS A/O X 2 AND CONFUSED. PT IS ON TELE # [address] PT DENEIS ANY CHEST PAIN OR SOB AT THIS TIME. PT HAS PALPABLE PULSES AND NO EDEMA NOTED. PT LUNG SOUNDS DIMINSHED AND CLEAR BILATERALLY ON RA. PT BREATHING EVEN AND UNLABORED. NO RESP DISRTESS NOTED. PT BOWEL SOUND ACTIVE, LAST BM 10/02, ABD FLAT AND SOFT. PT INCONTIENT AT TIMES. PT HAS GENERAL WEAKNESS. FALL PERCAUTIOUNS IN PLACE. PT HAS ERYTHEMA IN BUTTCOKS COVERED WITH OPTIFORM. PT IV ON LFA INTACT AND PATENT. PT IS ON UPPER EXTREMITY WRIST RESTRAINTS BILATERALLY IN PLACE, SKIN INTACT WNL WITH PALPABLE PULSES NOTED.WILL CONTINUE TO MONITOR.
[2018-10-02 20:47] VITALS: BP 138/52
[2018-10-02 22:00] VITALS: BP 149/72
[2018-10-03] VITALS (7 sets, daily range): BP systolic 123–165; BP diastolic 67–86
--- NOTE | 2018-10-03 00:39 | NUR ---
PT IN BED ASLEEP, EASILY AROUSABLE. PT DENIES ANY PAIN AT THIS TIME. NO SIGNS OF RESPIRATORY DISTRESS AT THIS TIME. PT REMAINS ON WRIST RESTRAINTS WITH SKIN INTACT, PULSES PALPABLE. PT WAS REPOSITIONED.
--- NOTE | 2018-10-03 03:09 | NUR ---
PT ROUNDS WERE MADE. PT EASILY AROUSABLE WITH VERBAL COMMUNICATION. PT HAS EPISODES OF CONFUSION. PT SHOWS NO SIGNS OF RESP DISTRESS, PT BREATHING EVEN AND UNLABORED. PT ON AIR MATRESS, REPOSTIIONED, RESTRAINTS IN PLACE ON WRIST BILATERALLY WITH SKIN INTACT. PT DENIES ANY CHEST PAIN OR SOB AT THIS TIME.
--- NOTE | 2018-10-03 06:13 | NUR ---
PT SLEPT OFF AND ON THROUGH OUT THE NIGHT. PT HAS EPISODES OF CONFUSION AND RESTLESSNESS. PT BREATHING WAS EVEN AND UNLABORED. NO RESP DISTRESS NOTED. PT REMAINS ON RESTRAINTS ON WRIST BILATERALLY, SKIN IS INTACT AND CIRCULATION WNL. PT IV TO [facility]. PT ON TELE #14 ST. PT IS ON AIR MATRESS AND REPOSTIONED.PT HAS BEEN INCONTIENT, MORNING CARE GIVEN. PT DENIES PAIN AT THIS TIME.
--- NOTE | 2018-10-03 07:05 | NUR ---
RECIEVED BEDSIDE REPORT FROM INFUSION THERAPY NURSE NURSE. PATIENT IS STABLE, ON ROOM AIR. RESPIRATIONS EVEN, NOT LABORED. ON TELE 14. IV TO LFA IS PATENT, NO EDEMA OR ERYTHEMA NOTED AT SITE. LR INFUSING AT 80ML/HR. ON BILATERAL SOFT WRIST RESTRAINTS. CIRCULATION INTACT. ON AIR MATRESS. BED IN LOW POSITION, BED RAILS UP X2. QUESTIONS AND CONCERNS ADDRESSED, SAFETY PRECAUTIONS IN PLACE. CALL LIGHT WITHIN REACH.
[2018-10-03 07:12] LABS: BASOPHIL % 0.5 % (0-2); PLATELET COUNT 331 x10^3mcL (130-400)
[2018-10-03 07:35] LABS: RED CELL DISTRIBUTION WIDTH 16.1 % (11.5-14.5)
[2018-10-03 07:54] LABS: ALBUMIN 2.9 g/dL (3.4-5.0); ALKALINE PHOSPHATASE 80 U/L (46-116); ALT/SGPT 47 U/L (14-59); AST/SGOT 59 U/L (15-37); BILIRUBIN TOTAL 0.7 mg/dL (0.20-1.00); CALCIUM 10.4 mg/dL (8.5-10.1); CARBON DIOXIDE 25.4 mmol/L (21-32); CHLORIDE SERUM 105 mmol/L (98-107); CREATININE SERUM 0.9 mg/dL (0.6-1.0); GLUCOSE SERUM 151 mg/dL (74-106); MAGNESIUM 1.5 mg/dL (1.8-2.4); SODIUM SERUM 141 mmol/L (136-145)
--- NOTE | 2018-10-03 08:45 | NUR ---
RESPIRATORY AT BEDSIDE.
--- NOTE | 2018-10-03 09:06 | NUR ---
ADMINISTERED MORNING MEDICATION. PATIENT WAS EDUCATED ON THE NEED FOR THE MEDICATION ASWELL THE ADVERSE EFFECTS TO REPORT. PATIENT VERBALIZED UNDERSTANDING. CALL LIGHT WITHIN REACH, BED IN LOW POSITION. CIRCULATION INTACT. BILATERAL SOFT WRIST RESTRAINTS IN PLACE. PATIENT DENIES OTHER NEEDS AT THIS TIME. SAFETY PRECAUTIONS IN PLACE.
--- NOTE | 2018-10-03 09:25 | NUR ---
DR GARCIA AT BEDSIDE.
--- NOTE | 2018-10-03 11:45 | NUR ---
ADMINISTERED MEDICATION PER EMAR. PATIENT EDUCATED ON NEED AND ADVERSE EFFECTS TO REPORT. PATIENT VERBALIZED UNDERSTANDING. PATIENT ON BILATERAL SOFT WRIST RESTAINTS. CIRCULATION INTACT, SKIN INTACT. QUESTIONS AND CONCERNS ADDRESSED. SAFETY PRECAUTIONS IN PLACE.
--- NOTE | 2018-10-03 11:55 | NUR ---
PATIENT WANTED DENTURES WASHED. DENTURES WASHED AND REPLACED. PATIENT DENIES OTHER NEEDS AT THIS TIME. SAFETY PRECAUTIONS IN PLACE. PATIENT REPORITIONED.
--- NOTE | 2018-10-03 12:27 | NUR ---
CALLED DR GARCIA TO MAKE AWARE OF MAGNESIUM LEVEL 1.5. WAITING FOR MD TO CALL BACK.
--- NOTE | 2018-10-03 13:20 | NUR ---
MD GARCIA MADE AWARE OF MAG LEVEL. WILL PALCE ORDER FOR MEDICATION.
--- NOTE | 2018-10-03 13:45 | NUR ---
ADMINISTERED MEDICATION PER EMAR.EDUCATED PATIENT ON NEED FOR MEDICATION WELL ADVERSE EFFECTS TO REPORT. PATIENT VERBALIZED UNDERSTANDING. BILATERAL SOFT WRIST RESTRAINTS IN PLACE. CIRCULATION INTACT. SAFETY PRECAUTIONS IN PLACE.
--- NOTE | 2018-10-03 15:03 | NUR ---
ADMINISTERED MEDICATION PER EMAR. PATIENT EDUCATED ON NEED FOR MEDICATION, ADVERSE EFFECTS TO REPORT. PATIETN VERBALIZED UNDERSTANDING. QUESTIONS AND CONCERNS ADDRESSED. SAFETY PRECAUTIONS IN PLACE.
--- NOTE | 2018-10-03 16:43 | NUR ---
ADMINISTERED MEDICTION PER EMAR. PATIENT EDUCATED ABOUT NEED FOR MEDICATION, WELL ADVERSE EFFECTS TO REPORT. PATIENT TOLORATED WELL. NO APPARENT SIGNS OF PAIN, SOB, OR RESPIRATORY DISTRESS. PATIENT DENIES OTHER NEEDS AT THIS TIME. SAFETY PRECAUTIONS IN PLACE. BILATERAL SOFT WRIST RESTRAINTS IN PLACE. CIRCULATION AND SKIN INTACT. PATIENT REPSOITIONED.
--- NOTE | 2018-10-03 18:23 | NUR ---
PATIENT IS STABLE, NO APPARENT SIGNS OF PAIN, SOB, OR RESPIRATORY DISTRESS. PATIENT IS ON BILATERAL SOFT WRIST RESTRAINTS. CIRCULATION INTACT. SKIN INTACT. IV INFUSING WELL. NO EDEMA OR ERYTHEMA NOTED AT SITE. FAMILY AT BEDSIDE. ON AIR MATRESS. CALL LIGHT WITHIN REACH, BED IN LOW POSITION, BED RAILS UP X2. QUESTIONS AND CONCERNS ADDRESSED, SAFETY PRECAUTIONS IN PLACE. WILL ENDORSE CARE TO FIBRE OPTIC CABLE SPLICER NURSE.
--- NOTE | 2018-10-03 19:10 | NUR ---
PT RECIEVED FROM THE DAY SHIFT RN. PT IS ALERT AND ORIENTED X2, ( PERSON AND PLACE) PT IS ON BIILATERAL SOFT WRIST RESTRAINTS SKIN AND CIRCULATION IS INTACT. PER DAY SHIFT RN PT IS STILL ATTEMPTING TO PULL OUT IV LINES AND TELEMONITOR. PT HAD REMOVED TELE MONITOR AFTER I ENTERED THE ROOM. PT WAS REORIENTED TO ENVIRONMENT AND REINSTRUCTED TO LEAVE THE TELEMONITOR IN PLACE. BREATHING IS EQUAL AND UNLABORED, NO ACUTE RESP DISTRESS NOTED. SAFETY AND COMFORT MEASURES MAINTAINED, BED IN LOWEST POSITION, CALL LIGHT WITHIN REACH. WILL CONTINUE TO MONITOR AT THIS TIME.
--- NOTE | 2018-10-03 19:24 | NUR ---
ENDORSED CARE TO TOWEL SORTER NURSE KELLI.
--- NOTE | 2018-10-03 20:00 | NUR ---
PT GIVEN 15 MIN BREAK FROM BILTERAL SOFT WRIST RESTRAINTS, SKIN AND CIRCULATION INTACT. SHORTLY AFTER PATIENT ATTEMPTED TO REMOVE TELE MONITOR. REORIENTED PATIENT TO ENVIRONMENT AND INSTRUCTED THE PATIENT TO NOT REMOVE THE IV LINES OR TELEMONITOR. PT IS CALM AND PLEASANT AT THIS TIME. BILATERAL SOFT WRIST RESTRAINTS IN PLACE AGAIN.
--- NOTE | 2018-10-03 21:54 | NUR ---
PT IS ALERT AND ORIENTED X2, DROWSY BUT EASILY AROUSABLE WITH VERBAL STIMULUS. PT HAS EPISODES OF CONFUSION, PT WAS REORIENTED TO ENVIRONMENT, BILATERAL SOFT WRIST RESTRAINTS IN PLACE, CIRCULATION AND SKIN IS INTACT. WILL CONTINUE TO MONITOR AT THIS TIME.
--- NOTE | 2018-10-03 22:16 | NUR ---
PT WAS SCREAMING FROM THE ROOM. PT IS CLAIMING SHE IS SEEING GHOSTS. REORIENTED THE PATIENT TO ENVIRONMENT.
--- NOTE | 2018-10-03 22:31 | NUR ---
PT IS SCREAMING AND AGITATED AT THIS TIME. ATTEMPTED TO REORIENT THE PATIENT TO ENVIRONMENT. PT IS STATING THAT SHE IS SEEING A WHITE GHOST IN HER ROOM. ATTEMPTED TO CALM PATIENT BUT PATIENT IS STILL SCREAMINING AT THIS TIME. PT WAS GIVEN XANAX FOR ANXIETY EARLIER IN SHIFT ( SEE MAR), PT IS STILL ALERT AND ORIENTED X2, PT IS ON BILATERAL WRIST SOFT RESTRAINTS, SKIN AND CIRCULATION INTACT. SAFETY AND COMFORT MEASURES MAINTAINED, BED IN LOWEST POSITION, CALL LIGHT WITHIN REACH. WILL CONTINUE TO MONITOR AT THIS TIME.
--- NOTE | 2018-10-03 23:34 | NUR ---
PT ON BILTERAL SOFT WRIST RESTRAINTS, PT SKIN AND CIRCULATION IS INTACT. PT IS STILL SCREAMING AND CLAIMING THERE IS A GHOST IN HER ROOM. REORIENTED PT TO HER ENVIRONMENT, WILL CONTINUE TO MONITOR THE PATIENT AT THIS TIME.
--- NOTE | 2018-10-03 23:58 | NUR ---
PT IS AWAKE AND ALERT IN BED WATHCING TV, PT IS STILL SCREAMING AND STATING " I AM SEEING THE DEVIL" REORIENTATED PT BACK TO ENVIRONMENT. AT THIS TIME PT IS CALM BUT RESTLESS. PT REMOVED TELE MONITOR, REINFORCED INSTRUCTIONS TO PATIENT TO NOT REMOVE IV LINES AND TELEMONITOR, BILATERAL SOFT WRIST RESTRAINTS IN PLACE, SKIN AND CIRCULATION INTACT. NO COMPLAINT OF PAIN AT THIS TIME. SAFETY AND COMFORT MEASURES MAINTAINED, BED IN LOWEST POSITION, BED ALARM IN PLACE. WILL CONTINUE TO MONITOR AT THIS TIME.
--- NOTE | 2018-10-04 01:49 | NUR ---
PT IS RESTLESS IN BED AWAKE WITH TV ON, PT IS YELLING STATING SHE IS SEEING GHOSTS IN HER ROOM. REORIENTED PT TO HER ENVIRONMENT, PT IS ABLE TO BE REORIENTATED BUT ONLY FOR A SHORT TIME. PT HAS NOT SLEPT DURING THE SHIFT. PT IS ON BILATERAL SOFT WRIST RESTRAINTS, SKIN AND CIRCULATION IS INTACT. PT IS REMOVED TELE MONITOR ONCE AGAIN, INSTRUCTED PATIENT TO LEAVE THE TELEMONITOR ON, PT STILL ATTEMPTING TO REMOVE IV LINES. SAFETY AND COMFORT MEASURES MAINTAINED, BED IN LOWEST POSITION, CALL LIGHT WITHIN REACH. WILL CONTINUE TO MONITOR AT THIS TIME.
--- NOTE | 2018-10-04 03:12 | NUR ---
PT IS YELLING AND SCREAMING FROM HER ROOM. PT IS ALERT AND ORIENTED TO PERSON AND PLACE ONLY. PT IS STATING THAT SHE IS SEEING A GHOST IN HER ROOM. ATTEMPT TO REORIENT PATIENT TO ENVIRONMENT, PT IS CALM FOR A FEW MINS BUT THEN STARTS TO YELL AND SCREAM AGAIN. PT IS STILL ATTEMPTING TO REMOVE IV LINES AND HER TELE MONITOR. SAFETY AND COMFORT MEASURES MAINTAINED, BED IN LOWEST POSITION, CALL LIGHT WITHIN REACH. BILATERAL SOFT WRIST RESTRAINTS IN PLACE, SKIN AND CIRCULATION INTACT.
--- NOTE | 2018-10-04 04:34 | NUR ---
PT IS AWAKE AND YELLING IN HER ROOM. PT IS CONFUSED AND ALERT AND ORIENTED TO PERSON AND PLACE ONLY. PT HAS NOT SLEPT THROUGHOUT THE SHIFT. REORIENTED PT TO ENVIRONMENT, PT IS STILL ATTEMPTING TO PULL OFF TELEMONITOR. HAVE INSTRUCTED PATIENT TO LEAVE THE TELEMONITOR IN PLACE, PT IS NON-COMPLIANT, PT IS ON BILATERAL SOFT WRIST RESTRAINTS, SKIN AND CIRCULATION IS INTACT. SAFETY AND COMFORT MEASURES MAINTAINED, BED IN LOWEST POSITION, CALL LIGHT WITHIN REACH. WILL CONTINUE TO MONITOR AT THIS TIME.
--- NOTE | 2018-10-04 05:02 | NUR ---
PT HAS NOT SLEPT THROUGHOUT ENTIRE SHIFT. PT HAS BEEN ALERT AND ORIENTED TO PERSON AND PLACE ONLY. PT HAS EPISODES OF DELIRIUM AND CONFUSION. PT WAS STATING THAT SHE IS SEEING GHOSTS, AND THERE IS A PERSON IN THE ROOM. PT WAS REORIENTED SEVERAL TIMES TO ENVIRONMENT. PT WAS ABLE TO BE CALMED AND REORIENTED TO ENVIRONMENT. PT IS ON BILATERAL SOFT WRIST RESTRAINTS. PT IS STILL ATTEMPTING TO REMOVE IV LINES AND TELEMONITOR. PT IS ON ROOM AIR, AND IS INCONTINENT AT TIMES. PT HAS BEEN NON COMPLIANT WITH LEAVING IV LINES AND TELEMONITOR IN PLACE. PT HAS NO COMPLAINT OF PAIN AT THIS TIME. SAFETY AND COMFORT MEASURES IN PLACE, CALL LIGHT WITHIN REACH. WILL ENDORSE CONTINUITY OF CARE TO THE ONCOMING RN. WILL CONTINUE TO MONITOR AT THIS TIME.
[2018-10-04 05:37] VITALS: BP 125/65
[2018-10-04 07:17] LABS: ALKALINE PHOSPHATASE 75 U/L (46-116); ALT/SGPT 46 U/L (14-59); AST/SGOT 59 U/L (15-37); BILIRUBIN TOTAL 0.7 mg/dL (0.20-1.00); CALCIUM 9.8 mg/dL (8.5-10.1); CARBON DIOXIDE 25.3 mmol/L (21-32); CHLORIDE SERUM 105 mmol/L (98-107); CREATININE SERUM 0.8 mg/dL (0.6-1.0); GLUCOSE SERUM 143 mg/dL (74-106); POTASSIUM SERUM 3.5 mmol/L (3.5-5.1); SODIUM SERUM 143 mmol/L (136-145); TOTAL PROTEIN, SERUM 7.2 g/dL (6.4-8.2)
--- NOTE | 2018-10-04 07:25 | NUR ---
RECEIVED PT FROM NUTRITION HELPER, RESTING IN THE BED. YELLING AND SAID "I SEE GOST". HALLUCINATING. WHEN NURSE TALK TO THE PT SHE CALM DOWN AND PLEASANT. EMOTIONAL SUPPORT GIVE. DENIES ANY PAIN. SAFTEY PRECAUTIONS ARE IN PLACE. WILL MONITOR.
[2018-10-04 07:31] LABS: BASOPHIL % 0.3 % (0-2); PLATELET COUNT 343 x10^3mcL (130-400)
[2018-10-04 07:33] LABS: RED CELL DISTRIBUTION WIDTH 16.3 % (11.5-14.5)
[2018-10-04 09:34] VITALS: BP 149/62
--- NOTE | 2018-10-04 12:00 | NUR ---
PT IS CALM AND PLEASANT THIS TIME. ALERT AND ORIENTED X3 WITH PERIOD OF CONFUSION. REMOVED RESTRAINTS. PT IS STABLE. DENIES PAIN.
[2018-10-04 13:08] VITALS: BP 124/73
--- NOTE | 2018-10-04 14:35 | NUR ---
CAME AND SAW THE PT. INFORMED ABOUT PT HAS BEEN HALLUCINATING AND PERIOD OF CONFUSION. ALSO INFORMED ABOUT PT WAS ST WITH HR 110 TO 120 IN AM. AFTER XANANX PO DOWN TO 108 THIS TIME. REQUESTED TO REVIEW PT HOME MEDICATION. INFORMED ABOUT EXCORIATION IN THE PERIRECTAL AREA AND ERYTHEMA TO BUTTOCK, BILATERAL HIP. SPOKE WITH PT AND HER SON. TOLD THEM SHE IS STABLE TO GET DISCHARGE BUT HE RECCOMENDED SNF BECAUSE PT IS MAX ASSIST. PT AND HER REFUSED TO GO TO SNF. ORDERED DC HOME WITH HOMEHEALTH, FAMILY AGREED.
[2018-10-04 14:42] VITALS: BP 124/73
--- NOTE | 2018-10-04 17:00 | NUR ---
PT'S CAME TO PUCK UP PT. DISCHARGE INSTRUCTIONS AND PRESCRIPTION GIVEN. PB SIGNED AND SENT WITH PT. IV REMOVED AND DRESSING APPLIED. TELE REMOVED AND RETURNED. PT DENIES PAIN. PT NEEDED 2 PEOPLE TO ASSIST HER TO SIT IN THE W/C. EDUCATED PT ABOUT SITUATIONS AND FALL RISK BUT PT AND HER STILL WANT TO DISCHARGE HOME. DYNAMICS AX SOLUTION ARCHITECT WHEELED PT TO LOBBY ACCOMPANIED WITH PT'S . PT DC HOME. SAVI WILL ARRANGE HOME HEALTH FOR P.T. CHARGE NURSE AWARE ABOUT EVERYTHING. DC PICTURE WAS TAKEN.
== END 2018-10-04 19:33 | disposition home health service (06) | DRG 871 ==
LOC: ED 10:50 → DU 14:07
PROVIDERS: Emergency Medicine; ADMIT Internal Medicine Pulmonary Disease
DX: A41.9 Sepsis, unspecified organism (principal); G93.41 Metabolic encephalopathy; N17.0 Acute kidney failure with tubular necrosis; N39.0 Urinary tract infection, site not specified; T44.7X1A Poisoning by beta-adrenoreceptor antagonists, accidental (unintentional), initial encounter; R00.1 Bradycardia, unspecified; G35 Multiple sclerosis; E87.6 Hypokalemia; I12.9 Hypertensive chronic kidney disease with stage 1 through stage 4 chronic kidney disease, or unspecified chronic kidney disease; N18.9 Chronic kidney disease, unspecified; F03.90 Unspecified dementia, unspecified severity, without behavioral disturbance, psychotic disturbance, mood disturbance, and anxiety; Z68.20 Body mass index [BMI] 20.0-20.9, adult; Y92.009 Unspecified place in unspecified non-institutional (private) residence as the place of occurrence of the external cause
CPT/HCPCS: 97110-GP; G0378; J0461; J0696; J1610; J1644; J2405; J3475; J7030; J7120; J7512; J7613

== ENCOUNTER 2018-11-23 13:31 | Inpatient (IN) | payer OTHER ==
[~2018-11-23] VITALS: Ht 152.4 cm; Wt 43.3 kg
[~2018-11-23 13:31] MED LIST changes: +NOR10T; +TESSALON PERLE100 MG
[2018-11-23 13:36] VITALS: Ht 152.4 cm; Wt 43.3 kg
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
--- NOTE | 2018-11-23 13:45 | NUR ---
PT ALSO NOTED WITH REDNESS TO PERITONEAL AREA.
--- NOTE | 2018-11-23 14:00 | NUR ---
PT NOTED TO CONTINUOUSLY SCRATCH VAGINAL REGION. PT COVERED WITH GOWN AND BLANKET AND INFORMED NOT TO SCRATCH HERSELF. PT STATED UNDERSTANDING, BUT STILL SCRATCHING
[2018-11-23 14:48] LABS: UA SPECIFIC GRAVITY 1.025 (1.005-1.035); microscopic required? YES; urine erythrocyte 3+ (NEGATIVE)
[2018-11-23 14:49] LABS: BASOPHIL % 0.5 % (0-2); PLATELET COUNT 204 x10^3mcL (130-400)
[2018-11-23 14:54] LABS: RED CELL DISTRIBUTION WIDTH 16.2 % (11.5-14.5)
--- NOTE | 2018-11-23 14:54 | NUR ---
TAKEN TO CT VIA WARREN
[2018-11-23 14:59] LABS: CALCIUM 11.5 mg/dL (8.5-10.1); CARBON DIOXIDE 20.3 mmol/L (21-32); CHLORIDE SERUM 106 mmol/L (98-107); CREATININE SERUM 1.2 mg/dL (0.6-1.0); GLUCOSE SERUM 167 mg/dL (74-106); POTASSIUM SERUM 3.1 mmol/L (3.5-5.1); SODIUM SERUM 141 mmol/L (136-145)
[2018-11-23 15:06] LABS: ALKALINE PHOSPHATASE 73 U/L (46-116); ALT/SGPT 41 U/L (14-59); AST/SGOT 61 U/L (15-37); BILIRUBIN TOTAL 0.84 mg/dL (0.20-1.00); TOTAL PROTEIN, SERUM 7.5 g/dL (6.4-8.2)
--- NOTE | 2018-11-23 16:06 | NUR ---
REPORT GIVEN TO DAVID ARGUELLO ON MS/T FOR FURTHER CARE OF PT
--- NOTE | 2018-11-23 16:19 | NUR ---
PT PULLED OUT IV. 2 NEW ONES PLACED
--- NOTE | 2018-11-23 16:30 | NUR ---
RECEIVED PT FROM ED VIA MARIA ELENA, CAME IN DUE TO ALOC. ORIENTED X1 (PERSON ONLY). W/ PERIODS OF CONFUSION. ABLE TO FOLLOW SIMPLE COMMANDS. NO SOB NOTED, LUNG SOUNDS DIMINISHED ON AUSCULTATION, O2 SAT-93% ON 2LPM/NC. DENIES CHEST PAIN/PRESSURE, SR ON THE MONITOR. DENIES ABDOMINAL DISCOMFORT. BOWEL SOUNDS ACTIVE. W/ BLANCHABLE ERYTHEMA ON THE BUTTOCKS, OPTIFOAM APPLIED. W/ RIGHT FACE ERYTHEMA, SCRATCHES AND ERYTHEMA ON THE BILATERAL HIPS AND CHEST, ERYTHEMA ON THE PERINEAL AREA. W/ OPEN WOUND ON THE LEFT BREASTFOLD AND DISCOLORATION ON THE RIGHT BREASTFOLD, INTERDRY APPLIED. ON AIR MATTRESS. SIDE RAILS UPX2. CALL LIGHT ON REACH. BED ALARM ON. HOB ELEVATED AT 30 DEG. RECEIVED PT FROM ED W/ NS BOLUS AND POTASSIUM CHLORIDE ONGOING. PRIMARY NURSE SUKHDEV AT BEDSIDE FOR CONTINUITY OF CARE
--- NOTE | 2018-11-23 16:52 | NUR ---
PATIENT ARRIVED FROM ED VIA GUERNEY ACCOMPANIED BY RN AND EMT. ASSISTED PATIENT TO BED. KITTY RN TO [facility] ADMISSION ASSESSMENT. PATIENT A/OX1 AT THIS TIME, TO HER NAME ONLY. ABLE TO FOLLOW SIMPLE COMMANDS. NC IN PLACE WITH 2LPM O2. PATIENT GOWN AND CHANGES AND WOUND ASSESSMENTS PERFORMED. PATIENT HAS DISCOLORATION TO RIGHT CHEEKBONE, REDNESS UNDER BILATERAL BREASTS, AND REDNESS TO NAYLA AERA AND COCCXYS. CDI DRESSINGS APPLIED. PATIENT HAS LONG NAILS AND SCRATCHING SELF IN VARIOUS PLACES. SCRATCHES SEEN TO CHEST, AND BILATERAL HIPS AND LEGS. REOIRENTATION OF PATIENT NOT SUCCESSFULL. PATIENT DOES NOT SEEM TO BE IN PAIN AT THIS TIME. NS INFUSING WITH POTASSIUM KRIDER. CALL LIGHT WITHIN REACH OF PATIENT, WILL CONTINUE TO MONITOR
[2018-11-23 17:00] VITALS: BP 160/118
--- NOTE | 2018-11-23 17:28 | NUR ---
PATIENT NOW WITH SITTER IN ROOM TO MONITOR PATIENT
--- NOTE | 2018-11-23 17:42 | NUR ---
DR GEORGE SAW PATIENT ENTERED ORDERS. INFOMRED DR OF PATIENT HIGH BLOOD PRESSURE RECEIVED ORDER FOR CLONADINE. PATIENT CALLED AND REQUESTED UPDATE ON PATIENT CONDITION, REQUESTED THAT PATIENT BE DISCHARGED TO CARE FACILITY PATIENT HAS BEEN READMITTING BACK TO THE HOSPITAL FREQUENTLY
--- NOTE | 2018-11-23 18:02 | NUR ---
ADMINISTERED CLONADINE PRN FOR HIGH BLOOD PRESSURE. PATIENT SWALLOWED PILL WITHOUT TROUBLE. SITTER IN ROOM WITH PATIENT AT THIS TIME. CALL LIGHT WITHIN REACH, WILL CONTINUE TO MONITOR
[2018-11-23 19:25] VITALS: BP 160/82
--- NOTE | 2018-11-23 19:27 | NUR ---
RECIEVED PT FROM JOS HERNANDEZ. PT IS A/O X2 PERSON AND PLACE. ABLE TO REPSOND TO VERBAL STIMULI. SITTER AT BEDISE. PT IS ON TELE # 11 SR HR 74. PT DENIES ANY CHEST PAIN OR SOB AT THIS TIME. PT PULSES PALPABLE, NO EDEMA NOTED. LUNG SOUNDS DIMINSHED BILATERALLY, ON 2L NC. NO RESP DISTRES SNOTED. BREATHING EVEN AND UNLABORED. PT HAS ACTIVE BOWEL SOUNDS, ABD ROUND AND SOFT. LAST BM 11/23 ACORRDING TO FAMILY. PT IS INCONTIENT. GENERAL WEAKNESS, WALKER AT HOME. PT IS ON AIR MATRESS. PT HAS REDNESS TO R SIDE OF FACE, WHANAU SUPPORT WORKER, NO OPEN WOUND. BLANCHABLE REDNES TO BUTTOCKS, OPTIFORM IN PLACE. SCRATCHES TO CHEST AND HIPS, NO DRAINAGE NOTED, WHANAU SUPPORT WORKER. PT HAS IV TO LFA, RH CDI. PT DENIES ANY PAIN AT THIS TIME. WILL CONT TO MONITOR, CALL LIGHT WITHIN REACH.
--- NOTE | 2018-11-24 00:01 | NUR ---
PT IN BED AWAKE, PERIOD OF CONFSUION. REORIENTED TO SELF, TIME AND PLACE. REPONDS TO VERBAL STIMULI. SITTER AT BEDSIDE. BREATHING EVEN AND UNLABORED. NO RESP DISTRESS NOTED. WILL CONT TO MONITOR. REPOSITIONED PT.DENIES ANY PAIN AT THIS TIME.
[2018-11-24 05:19] VITALS: BP 143/62
--- NOTE | 2018-11-24 05:47 | NUR ---
PT WAS AWAKE DURING THE NIGHT. PT WAS CONFUSED WITH PERIODS OF RESTLNESS. SITTER AT BEDSIDE. PT WAS COOPERATIVE WITH SOME NURSING CARE. ON TELE #11, PT DENIES ANY SOB OR CHEST PAIN AT THIS TIME. PT REMAINS ON 2L NC, BREATHING EVEN AND UNLABORED. NO RESP DISTRESS NOTED. PT ON AIR MATRESS, REPOSTIONED Q2H OR NEEDED. PT HAS BLANCHABLE REDNESS TO BUTTOCKS, COVERED WITH OPTIFORM. REDNESS TO BREAST FOLDS, OPEN WOUND TO R BREAST, INTERDRY ON BOTH, NO DRAINGE NOTED. PT HAS REDNESS TO PERINEAL AREA, Z GUARD APPLIED. ERYTHEMA TO THE RIGHT OF FACE CAMPUS DEAN. PT HAS SCRATCHES TO CHEST AND HIPS, CAMPUS DEAN. PT IV TO LH INFUSING WELL. WILL CONT TO MONITOR, CALL LIGHT WITHIN REACH. WILL ENDORSE CARE TO DAY SHIFT.
[2018-11-24 06:12] LABS: BASOPHIL % 0.9 % (0-2); PLATELET COUNT 145 x10^3mcL (130-400)
[2018-11-24 06:31] LABS: CALCIUM 9.7 mg/dL (8.5-10.1); CARBON DIOXIDE 24.4 mmol/L (21-32); CHLORIDE SERUM 113 mmol/L (98-107); CREATININE SERUM 0.8 mg/dL (0.6-1.0); GLUCOSE SERUM 146 mg/dL (74-106); POTASSIUM SERUM 3.2 mmol/L (3.5-5.1); SODIUM SERUM 146 mmol/L (136-145)
[2018-11-24 07:02] LABS: RED CELL DISTRIBUTION WIDTH 16.3 % (11.5-14.5)
--- NOTE | 2018-11-24 08:00 | NUR ---
RECEIVED PATIENT AWAKE BUT CONFUSED AT THIS TIME. HX OF DEMENTIRA NOTED A [facility] CONFUSION. PATIENT HAS DIMINISHED BREATH SOUNDS AND BOWEL SOUNDS ARE ACTIVE. PATIENT HAS DISTENDED ABDOMEN BUT SOFT. HX OF MS NOTED AND PATIENT IS NON AMBULATORY AT THIS TIME. VITALS AT THIST ROSANA AT 98.9, 57, 18, 143/62, 97%. PATIENT WHT NOTED BACTERIA INT HE URINE AND SOME YEAST WELL. SHE HAS BEEN INCONTINE OF URINE AND HAS HAD LAST BM ON THE . SHE HAS BEEN ON 02 AT 2 LITERS AND ON IV FLUIDS ORDERED. SHE RECEIVED ROCEPHIN AND NO ADVERSE REACTION NOTED. PATIENT HAS NEGATIVE CHEST XRAY AND HAS HSITOR O FCVA, MS. DEMENTIA AND HAS HAD FALL AT HOME. HER POTASSIUM IS AT 3.2 AND ORDERS PENDING AT THIS TIME. SHE HAS MULTIPLE AREAS OF SKIN BREAKDOWN TO THE UNDER BRESAT FOLDS. BUTTOCK AND SOME SCRATCHES TO JAIRO CHEST AND UPPER LEGS. SHE NARVAEZ SNOT COMPLAIN OF PAIN AT THIS TIME. WILL CONTINUE TO MONITRO INDICATED.
[2018-11-24 09:26] VITALS: BP 124/55
--- NOTE | 2018-11-24 12:30 | NUR ---
CONTINUED ON K RIDER ORDERED AND SO FAR TOLERATED WELL.
[2018-11-24 13:34] VITALS: BP 159/76
[2018-11-24 16:35] VITALS: BP 170/70
--- NOTE | 2018-11-24 18:14 | NUR ---
CONTINUED CONFUSED AND DISORIENTED BUT REMEMBERS HER SPOUSE AND ASKS FOR HIM REGULARLY. HE HAD CALLED EARLIER AND WANTS HER TO WALK WITH THE PHYSICAL THERAPY AND HE WANTS HER NOT TO JUST SIT ARROUND. NOTED PATIENT WITH HISTORY OF MS AND WILL BE WEAKENED BY THIS AND ALONG WITH THE DEMENTIA HER FOLLOW THOUGH MAY BE DEPENDANT ON HER PAIN AND WEAKNESS LEVEL ON ANY GIVEN DAY. AT THIS TIME SHE HAS SOME SHAKINESS TO THE BILATERAL ARMS AND HAS BEEN BARELY MOVING UNLESS MOTIVATED REGULARLY. WILL CONTINUE TO MONITOR. LAB STATES THEY NEED A STOOL FOR C DIFF TO BE COLLECTED.
--- NOTE | 2018-11-24 19:25 | NUR ---
PT RESTING IN BED COMFORTABLY, PT DENIES ACUTE DISTRESS AT THIS TIME, PT IS A/OX4 BUT FORGETFUL AT TIMES, PT DENIES SOB OR PAIN, ASSESSMENT PERFORMED AT THIS TIME, IV TO THE LEFT HAND INFUSING D5/.45% NS AT 75ML/HR, TELE 11 NSR, SAFETY PRECAUTIONS IN PLACE, WILL CONTINUE TO MONITOR
[2018-11-24 21:16] VITALS: BP 169/79
--- NOTE | 2018-11-24 21:29 | NUR ---
PT SBP 169, CLONADINE ALREADY GIVEN AT 1935, PAGED DR LOVETT WHO IS COVERING FOR DR GEORGE.
--- NOTE | 2018-11-24 21:35 | NUR ---
DR LOVETT CALLED BACK AND ORDERED HYDRALIZINE 10 MG IVP, ADMINISTERED PER ORDER, WILL CONTINUE TO MONITOR
[2018-11-24 23:18] VITALS: BP 159/66
--- NOTE | 2018-11-24 23:18 | NUR ---
RETOOK PT BP, BP DECREASED TO159/66, PT AYSMPTOMATIC, SAFETY PRECAUTIONS IN PLACE, WILL CONTINUE TO MONITOR
[2018-11-25] VITALS (8 sets, daily range): BP systolic 119–164; BP diastolic 57–79
--- NOTE | 2018-11-25 00:52 | NUR ---
PT RESTING IN BED WITH EYES CLOSED EASILY AROUSABLE TO VERBAL STIMULI, DENIES PAIN OR SOB AT THIS TIME, SAFETY PRECAUTIONS IN PLACE, WILL CONTINUE TO MONITOR
--- NOTE | 2018-11-25 02:47 | NUR ---
PT RESTING IN BED WITH NO ACUTE DISTRESS AT THIS TIME, PT EASILY AROUSABLE TO VERBAL STIMULI, SAFETY PRECAUTIONS IN PLACE, WILL CONTINUE TO MONITOR
--- NOTE | 2018-11-25 04:45 | NUR ---
CLEANED PT APPLIED NEW OPTIFOAM TO SACRAL COCCYGEAL REGION, APPLIED ZGUARD TO AFFECTED AREAS, APPLIED NEW INTERDRY TO BREAST FOLDS
--- NOTE | 2018-11-25 05:08 | NUR ---
PT HAD EPISODE OF HTN AT NIGHT, CALLED DR LOVETT WHO IS CVERING FOR DR GEORGE AND ORDER WAS GIVEN FOR HYDRALAZINE IVP PRN AND WAS EFFECTIVE, PT HAD GUERRERO THAT WAS MANAGED EFFECTIVLY WITH TYLENOL PRN, SAFETY PRECAUTIONS WERE MAINTAINED THROUOGH THE NIGHT WILL CONTINUE TO MONITOR AND EDNORSE CARE TO ONCOMING SHIFT
--- NOTE | 2018-11-25 05:25 | NUR ---
PT BP 169/77, PT ASYMPTOMATIC, ADMINISTERED HYDRALAZINE IVP PER ORDER,
--- NOTE | 2018-11-25 06:15 | NUR ---
RETOOK PT BP, CJ=471/65 HR=70, WILL CONTINUE TO MONITOR
[2018-11-25 06:46] LABS: CARBON DIOXIDE 21.8 mmol/L (21-32); CHLORIDE SERUM 107 mmol/L (98-107); CREATININE SERUM 0.5 mg/dL (0.6-1.0); GLUCOSE SERUM 153 mg/dL (74-106); MAGNESIUM 1.7 mg/dL (1.8-2.4); POTASSIUM SERUM 3.3 mmol/L (3.5-5.1); SODIUM SERUM 137 mmol/L (136-145)
--- NOTE | 2018-11-25 07:25 | NUR ---
RECEIVED PT FROM SHAREPOINT DESIGNER DEVELOPER. PT AWAKE, ALERT. A/OX4. PT NOTED TO BE FORGETFUL AND REPETITIVE. PT ON TELE 11. PT REPORTS PAIN TO HEAD, CHEST AND URINARY TRACT. WILL MEDICATE PRN. PT ON ROOM AIR WITH NO RESP DISTRESS NOTED. IV ACCESS LH, CDI INFUSING D5 1/2NS AT 75ML/HR. ACTIVE BS NOTED. PERIPHERAL PULSES PALPABLE, NO EDEMA NOTED. PT HAS GENERALIZED WEAKNESS. SITTER AT BEDSIDE. SAFETY MEASURES IN PLACE, BED LOW AND LOCKED. CALL LIGHT WITHIN REACH.
--- NOTE | 2018-11-25 10:15 | NUR ---
PT BLOOD PRESSURE 161/57. CLONIDINE ADMINISTERED ORDERED PRN (SEE EMAR). WOUND CARE PROVIDED WITH WOUND CARE NURSE. PT CLEANED AND REPOSITIONED WITH PROJECT INTERN. WILL MONITOR.
--- NOTE | 2018-11-25 11:10 | NUR ---
BLOOD PRESSURE RECHECK. BP 119/57 HR 52 AT THIS TIME. PT DENIES ANY DISCOMFORT OR PAIN AT THIS TIME. PT RESTING QUIETLY IN BED. WILL CONTINUE TO MONITOR.
--- NOTE | 2018-11-25 12:00 | NUR ---
WOUND CARE EVALUATION NOTE: REASON FOR EVALUATION: LOW BING SCALE AND SACRALCOCCYX REDNESS SKIN ASSESSMENT DONE WITH THIS 77 Y/O FEMALE PT [place] [facility] [place]. PAST MEDICAL HX INCLUDES CVA, SCLEROSIS AND PT. ADMITTED WITH PRESSURE ULCER STAGE 1 TO [facility]. PT IS AWAKE. SKIN IS WARM AND MOIST, BLE WITH DRY FLAKY SKIN, NO HAIR GROWTH, NO EDEMA. DORSAL PEDAL PULSES PRESENT AND NORMAL. PLAN OF CARE DISCUSSED WITH PRIMARY RN AND PT. PT. VERBALIZING UNDERSTANDING.NEED REINFORCEMENT. INTEGUMENTARY: -INTERTRIGO TO UNDER B/L BREAST FOLDS SKIN REDNESS NO OPEN AREA, INTER DRY CLOTH IN PLACE -MOIST ASSOCIATED DERMATITIS TO BUTTOCKS, PERINEUM, GROINS AREA, SKIN INTACT. -[facility] ADMITTED WITH NON-BLANCHABLE REDNEDSS STAGE 1 PU TODAY AREA IS IMPROVING WITH BLANCHABLE REDNESS AND SKIN INTACT, OPTIFOAM IN PLACE -BLE DRYNESS WITH SKIN INTACT RECOMMENDATIONS: -CLEANSE UNDER BREAST FOLDS WITH SOAP AND WATER, PAT DRY AND APPLY INTER DRY CLOTH Q7D AND PRN IF SOILING -CLEANSE WITH SOAP AND WATER, PAT DRY, APPLY Z-GUARD TO BUTTOCKS, PERINEUM, GROINS AREAS BID AND OPEN TO AIR -APPLY OPTIFOAM TO SACRALCOCCYX QD AND PRN IF SOILING -OFFLOAD BILATERAL HEELS BY PLACING PILLOWS UNDER CALVES UNLESS OTHERWISE CONTRAINDICATED -PRESSURE REDISTRIBUTION SURFACE THERAPY -TURN AND REPOSITION Q2H, OFFLOAD RIGHT EAR AND SACRALCOCCYX -KEEP SKIN DRY AND CLEAN AT ALL TIMES -CONTINUE TO FOLLOW RD RECOMMENDATIONS PLEASE CONTACT WOUND CARE NURSE FOR ANY QUESTION AND CHANGE OF WOUND CONDITION.
--- NOTE | 2018-11-25 12:48 | NUR ---
PT POTASSIUM 3.3, MAGNESIUM 1.7. DR GEORGE AWARE. NEW ORDERS GIVEN. POTASSIUM 40MEQ ADMINISTERED PO ORDERED X 1 (SEE EMAR). 2G MAG SULFATE IVPB STARTED AT THIS TIME. PT TOLERATED WELL.
--- NOTE | 2018-11-25 14:28 | NUR ---
BP 148/76 (97) HR 59 AT THIS TIME. PT ASKING FOR TYLENOL. MED WILL BE ADMINISTERED ORDERED PRN.
--- NOTE | 2018-11-25 14:33 | NUR ---
PT RATES HEADACHE 8/10. TYLENOL ADMINISTERED ORDERED PRN (SEE EMAR) WILL MONITOR.
--- NOTE | 2018-11-25 15:01 | NUR ---
1. Recommend Enusre High protein BID with mechanically soft-chopped diet. Discussed recommendations with Dr. Dominique and JOS Lopez.
--- NOTE | 2018-11-25 15:01 | NUR ---
Initial Nutrition Assessment: 216T/A THANH POWER HR Dx: Sepsis, UTI PMHx: CVA, multiple sclerosis, bed bound PSHx: unknown Labs: BG 153H, K 3.3L, HGB 10.5L, BG 153H, CREAT 0.5L, MG 1.7L Meds: Lopressor, lovenox, zofran Diet: mechanically soft-chopped PO Intake: (11/25) breakfast 50%, (11/24) breakfast, lunch 75%, dinner 50% Ht: 152.4 cm (60") Wt: 43.2 kg (95#) BMI: 18.6 kg/m2 Bed scale: 93.6# IBW: 100# (45 kg) %IBW: 95 UBW: Pt. not aware Age: 77/F Food Allergies: NKFA Skin: redness noted to breast fold, perineal area Kavon: 15 Edema: none GI: Last BM: 11/23 Per H&P, Pt is a 77 Y old women w/ history of CVA and multiple sclerosis who is bed bound. RDN Visit (11/25): Patient was alert and oriented and appeared emaciated. Per RN FNS received 'wound care' consult on 11/24. Per product marketing specialist note (11/25) pt. has redness to breast folds and moisture associated dermatitis to buttocks. Pt. was admitted w/ stage 1 pressure ulcer and it has been improving. Pt. c/o diarrhea. Problem with: N/V/D/C: diarrhea Problems with: Chewing/Swallowing: dentures not fitting properly Current appetite: poor Recent wt change: none %wt change: n/a Vitamin/Supplement use: none Special diet at home: regular Physical activity: none Nutrition education given: PO was encouraged. Pt. willing to consume 'ONS Ensure high protein'. Food-drug interactions: none Education given: n/a Estimated Nutritional Needs Based on current body weight 43.2 kg Energy: 3818-8025 kcal/d (30-35 kcal/kg) - geriatric maintenance, sepsis Protein: 43-52 g/d (1.0-1.2 g/kg) - geriatric maintenance Fluid: 7958-6843 ml/d (1 ml/kcal) or per doctor Nutrition Diagnosis 1. Inadequate oral intake related to poor appetite as evidenced by documented PO < 75%. 2. Increased nutrient needs related to sepsis as evidenced by estimated calorie and protein needs. Intervention 1. Recommend Enusre High protein BID with mechanically soft-chopped diet. Discussed recommendations with Dr. Dominique and JOS Lopez. Monitor/Evaluate Goal: PO intake at least 75% of estimated needs Monitor: PO intake, Labs, GI function F/U in 3-5 days as moderate risk 11/28-
--- NOTE | 2018-11-25 15:33 | NUR ---
PT REPORTS HEADACHE IS GONE AT THIS TIME. REPORTS RELIEF. WILL CONTINUE TO MONITOR.
[2018-11-25] MEDS ORDERED: TYL325 PO (16:07)
[2018-11-25] MEDS ORDERED: METOPROLOL TART25 M1 PO (16:07)
--- NOTE | 2018-11-25 18:37 | NUR ---
PT STABLE AT THIS TIME. ALL NEEDS TENDED TO THROUGHOUT SHIFT. NO ACUTE DISTRESS OR DISCOMFORT NOTED AT THIS TIME. WILL CONTINUE TO MONITOR AND ENDORSE CARE TO INSTRUCTIONAL SYSTEMS DESIGN CONSULTANT. SAFETY MEASURES MAINTAINED.
--- NOTE | 2018-11-25 20:15 | NUR ---
SET UP TRANSPORTATION WITH [employer] BY MARIA ELENA. PER CALLI THE AVAILABLE TIME OF ATTRACTIONS ASSOCIATE WILL BE AT 1230H TO [facility] ROOM 38-B. CALLED [facility] TO INFORM TIME OF ATTRACTIONS ASSOCIATE. PRIMARY NURSE MADE AWARE.
--- NOTE | 2018-11-25 20:20 | NUR ---
RECEIVED A CALL FROM ARA MANN. PT.IS ACCEPTED AT [facility]. BED 38A. NOTIFIED. PT.AWARE.
--- NOTE | 2018-11-25 21:50 | NUR ---
Unable to contact patient's . Pt's daughter Deneen Ortega, notified of the transfer. Said she will inform the pt's .
--- NOTE | 2018-11-25 22:04 | NUR ---
Report given to ROSA ISELA Brooke. shipyard supervisor time 0030hrs by [facility].
--- NOTE | 2018-11-26 01:36 | NUR ---
[facility] here and picked up patient going to [facility]. Transfer packet given. In no apparent distress.
== END 2018-11-26 01:54 | DRG 689 ==
LOC: ED 13:31 → DU 15:35
PROVIDERS: Emergency Medicine; ADMIT Internal Medicine Pulmonary Disease
DX: N39.0 Urinary tract infection, site not specified (principal); G93.41 Metabolic encephalopathy; R64 Cachexia; E87.2 Acidosis; E87.0 Hyperosmolality and hypernatremia; G35 Multiple sclerosis; E86.0 Dehydration; F03.90 Unspecified dementia, unspecified severity, without behavioral disturbance, psychotic disturbance, mood disturbance, and anxiety; L89.151 Pressure ulcer of sacral region, stage 1; I10 Essential (primary) hypertension; Z74.01 Bed confinement status; Z68.20 Body mass index [BMI] 20.0-20.9, adult; Z86.73 Personal history of transient ischemic attack (TIA), and cerebral infarction without residual deficits
CPT/HCPCS: 97110-GP; 97530-GP; G0378; J0360; J0696; J1200; J1650; J3475; J3480; J7030; J7042; J7060; Q0092

== ENCOUNTER 2018-11-28 16:33 | Observation (INO) | payer OTHER ==
[~2018-11-28] VITALS: Ht 152.4 cm; Wt 42.2 kg
[~2018-11-28 16:33] MED LIST changes: +TYL325 PO
--- NOTE | 2018-11-28 16:35 | NUR ---
PT BIBA FROM HOME REPORTEDLY HAVING AN MS ATTACK WITNESSED BY SON PER MEDICS. MEDICS REPORTED THE SON SAW PT SITTING UP AND DEVELOPING TIGHTNESS TO ARMS AND WAS NOT SURE IF IT WAS AN MS ATTACK, STROKE, OR ABNORMAL NEUROLOGICAL EPISODE. PT ARRIVED NON VERBAL BUT TRACKS WITH EYES APPROPRIATELY. EYES OPEN SPONTANEOUSLY AND PT RESPONDS TO SIMPLE COMMANDS SUCH "LET ME SEE YOUR FINGER" BY STICKING FINGER OUT AND TURNS TO SIDE WHEN ASKED TO. PT HAS MOUTH OPEN AND DOES NOT SEEM TO TRY TO KEEP IT CLOSED. NO SIGNS OF RESP COMPROMISE IS SEEN. PT TRIES TO COMMUNICATE AT TIMES BUT THERE IS INCOMPREHENSIBLE MUMBLING SPEECH
[2018-11-28 16:43] VITALS: Ht 152.4 cm; Wt 42.2 kg
[2018-11-28 17:14] LABS: BASOPHIL % 0.7 % (0-2); PLATELET COUNT 181 x10^3mcL (130-400)
[2018-11-28 17:16] LABS: RED CELL DISTRIBUTION WIDTH 16.5 % (11.5-14.5)
[2018-11-28 17:29] LABS: ALKALINE PHOSPHATASE 77 U/L (46-116); ALT/SGPT 42 U/L (14-59); AST/SGOT 46 U/L (15-37); BILIRUBIN TOTAL 0.6 mg/dL (0.20-1.00); CALCIUM 10.2 mg/dL (8.5-10.1); CARBON DIOXIDE 25.4 mmol/L (21-32); CHLORIDE SERUM 106 mmol/L (98-107); CREATININE SERUM 0.7 mg/dL (0.6-1.0); GLUCOSE SERUM 124 mg/dL (74-106); SODIUM SERUM 142 mmol/L (136-145); TOTAL PROTEIN, SERUM 6.7 g/dL (6.4-8.2)
[2018-11-28 17:30] LABS: ALBUMIN 2.8 g/dL (3.4-5.0)
[2018-11-28 17:31] LABS: POTASSIUM SERUM 2.9 mmol/L (3.5-5.1)
--- NOTE | 2018-11-28 18:03 | NUR ---
TAKEN TO CT SCAN. PT STILL SLURS WORDS AND ANSWERS QUESTIONS SLOWLY WITH INCOMPREHENSIBLE SPEECH. PT CLENCHES FISTS AND LOOKS AROUND. WHEN ASKED PT IF SHE IS A DIABETIC, PT STATED YES. HISTORY OF MEDS AND VISIT HISTORY DOES NOT SHOW PT HAS DIABETES
--- NOTE | 2018-11-28 18:31 | NUR ---
PT RETURNED TO BEDSIDE FROM CT. PLACED BACK ON FULL MONITORS
[2018-11-28 18:57] LABS: UA SPECIFIC GRAVITY <=1.005 (1.005-1.035); microscopic required? YES; urine erythrocyte 1+ (NEGATIVE)
--- NOTE | 2018-11-28 19:23 | NUR ---
PT SITTING UPRIGHT IN [facility]. NAD NOTED
--- NOTE | 2018-11-28 19:24 | NUR ---
REPORT GIVEN TO GAL ARGUELLO
--- NOTE | 2018-11-28 19:24 | NUR ---
NEW CHUCKS GIVEN. PT HAS IVF INFUSING ORDERED. PT RESPONDS PURPOSEFULLY OCCASIONALLY AND UNDERSTANDS SIMPLE COMMANDS. PT TURNS SIDE TO SIDE WHEN ASKED TO. REPORT GIVEN TO GAL ARGUELLO
--- NOTE | 2018-11-28 19:33 | NUR ---
REPORT RECEIVED FROM TERRELL ZAMBRANO RN
--- NOTE | 2018-11-28 19:53 | NUR ---
PT CHANGED AND CLEANED AND NEW CHUCKS PUT IN PLACE
--- NOTE | 2018-11-28 19:59 | NUR ---
PT IS ABLE TO FOLLOW VERBAL COMMANDS WHEN ASKED TO DO THINGS HOWEVER PT DOES NOT RESPOND TO QUESTIONS. PER SON PT WAS ABLE TO TALK AND WALK PRIOR TO TODAY. PT IS RESPONSIVE TO VERBAL STIMULI HOWEVER STILL VERBALLY UNRESPONSIVE AND UNABLE TO WALK. PER SON HE STATES PT IS HAVING AND "MS ATTACK". MD HARDY MADE AWARE OF PT STATUS AND UPDATE TO PT SKIN STATUS WELL. NAD AT THIS TIME.
--- NOTE | 2018-11-28 20:55 | NUR ---
MED REC RENATA AT THIS TIME. NO FAMILY PRESENT AT BEDSIDE. PT NON-VERBAL.
--- NOTE | 2018-11-28 21:05 | NUR ---
REPORT GIVEN TO HONG ARGUELLO
[2018-11-28 21:45] VITALS: BP 168/103
--- NOTE | 2018-11-28 22:01 | NUR ---
RECEIVED PT FROM ER, PT ADMIT FOR ALOC, PT IS A/O X3, ABLE TO ANSWER THE NAME, PLACE, AND YEARS, BUT UNABLE TO TELL WHY SHE IS HERE, SPEECH GABBLE AND SLOW RESPONSIVE, BUT ABLE TO ANSWER MOST QUESTIONS, AND FOLLOW COMMAND. LUNG SOUND CLEAR BILATERAL, NO COUGH, NO SOB, PT C/O CHEST PAIN AT THIS MOMENT, BOWEL SOUND PRESENT ALL 4 QUADRATNS, NO DISTENTION, NO TENDER. PEDAL PULSE PRESENT BOTH FEET, NO EDEMA, IV AT LEFT FA, NO LEAKING, NO INFILTRATION. PT IS ABLE MOVE ALL EXTREMITIES, THERE IS SCATCH JUAN CARLOS ALL OVER BACK AND NONBLANCHABLE ERYTHEMA AT BUTTOCK AND SACRAL AREA. ALL ADLS ASSIST, ALL NEED MET, CALL LIGHT IN REACH, WILL CONTINUE TO MONTIOR.
--- NOTE | 2018-11-28 22:08 | NUR ---
ENDORSE ALL INFORMATION TO PRIMARY NURSE.
[2018-11-28 23:15] VITALS: BP 146/78
--- NOTE | 2018-11-28 23:19 | NUR ---
DR RANDY OVALLE WAS CALLED AND MADE AWARE OF LACTIC ACID RESUTS (2.8, 2ND -2,3), UA RESULT+, WITH PRESSURE AT THE LEFT CHEST WITH HEADACHE. , GAVE ORDERS AND CARRIED OUT. WILL CONTINUE TO MONIOR.
--- NOTE | 2018-11-29 | NUR ---
C/O HEADACH ON SCALE 3/10, TYLENOL 650MG PO PRN MEDICATION. PROVIDED WITH SNACK AND APPLE JUICE, TOLERATING WELL. NO S/S OF ASPIRATION NOTED. ROCEPHIN 1GM GIVEN IVPB ORDERED FOR MANAGEMENT OF UTI. NO ADVERSE REACTION NOTED. WILL CONTINUE TO MONIOR.
--- NOTE | 2018-11-29 05:23 | NUR ---
PT HAS INTERMITTENT CONFUSION, VERY NEEDY, WANTS TO HAVE SOMEBODYNIN THE ROOM ALL THE TIMES. INSTRUCTD TO CALL FOR ANY ASSISTANCE NEEDED AND VERBALIZED UNDERSTANDING. ORALMFLUIDS TOLERATING WELL. ALL NEEDS ATTENDED.
[2018-11-29 06:52] VITALS: BP 149/60
--- NOTE | 2018-11-29 07:25 | NUR ---
RECIEVED PT RESTING IN BED WITH NO C/O PAIN, DISTRESS, OR SOB. PT A/OX4 WITH NO GUERRERO OR DISSINESS. PT FOUND ON 3LPM O2 NC.LFA IV INTACT AND PATENT WITH NO RENDESS OR INFLAMMATION. SAFETY PRECAUTIONS IN PLACE, CALL LIGHT WITHIN REACH, WILL MONITOR.
[2018-11-29 07:51] LABS: BASOPHIL % 0.5 % (0-2); PLATELET COUNT 135 x10^3mcL (130-400); RED CELL DISTRIBUTION WIDTH 16.8 % (11.5-14.5)
[2018-11-29 08:02] LABS: CALCIUM 9.3 mg/dL (8.5-10.1); CARBON DIOXIDE 25.5 mmol/L (21-32); CHLORIDE SERUM 109 mmol/L (98-107); CREATININE SERUM 0.8 mg/dL (0.6-1.0); GLUCOSE SERUM 138 mg/dL (74-106); POTASSIUM SERUM 3.3 mmol/L (3.5-5.1); SODIUM SERUM 143 mmol/L (136-145)
[2018-11-29 08:40] VITALS: BP 168/70
--- NOTE | 2018-11-29 10:00 | NUR ---
PT STABLE AND RESTING AT THIS TIME. NO C/O PAIN, DISTRESS, OR SOB. SAFETY PRECAUTIONS IN PLACE, CALL LIGHT WITHIN REACH, WILL MONITOR.
[2018-11-29] MEDS ORDERED: KEFLEX500 M1 PO (10:34)
[2018-11-29 10:57] VITALS: BP 153/56
[2018-11-29 11:26] VITALS: BP 153/56
--- NOTE | 2018-11-29 13:20 | NUR ---
PT STABLE TO DISCHARGE PER MD ORDER. ALL CARES TOLERATED WELL, VS WNL. ALL FORMS SIGNED AND DISCHARGE EDUCATION, PERSCRIPTIONS, AND INSTRUCTIONS GIVEN TO PT BY RESOURCE NURSE JOS WASHINGTON. PT AND VERBALIZED UDERSTANDING. IV REMOVED WITH CATHETER INTACT AND NO S/S OF REDNESS OR INFLAMMATION. ID BAND REMOVED FROM PT. PT ESCORTED DOWN TO LOBBY VIA WC BY ELECTRIC RANGE PREPARER AND WITH AT SIDE.
--- NOTE | 2018-11-29 13:21 | NUR ---
ALL DISCHARGE INSTRUCTION GAVE TO PT AND , ALL PAPER SIGNED. PT IS EATING LUNCH AND GET READY TO DISCHARGE.
--- NOTE | 2018-12-01 14:44 | NUR ---
WOUND CARE CONSULT NOT DONE. PT. DISCHARGED.
== END 2018-11-29 13:41 | disposition home or self-care (01) | DRG 689 ==
LOC: ED 16:33 → MU 20:19
PROVIDERS: Emergency Medicine; ADMIT Internal Medicine Pulmonary Disease
DX: N39.0 Urinary tract infection, site not specified (principal); G93.41 Metabolic encephalopathy; G45.9 Transient cerebral ischemic attack, unspecified; E87.2 Acidosis; B96.1 Klebsiella pneumoniae [K. pneumoniae] as the cause of diseases classified elsewhere; E87.6 Hypokalemia; E83.52 Hypercalcemia; F03.90 Unspecified dementia, unspecified severity, without behavioral disturbance, psychotic disturbance, mood disturbance, and anxiety; I10 Essential (primary) hypertension; G35 Multiple sclerosis; K80.20 Calculus of gallbladder without cholecystitis without obstruction; E78.5 Hyperlipidemia, unspecified; Z86.73 Personal history of transient ischemic attack (TIA), and cerebral infarction without residual deficits
CPT/HCPCS: G0378; J0696; J3480; J7030; J7040; J7060; Q0092; Q9967

== ENCOUNTER 2018-12-17 07:37 | Inpatient (IN) | payer OTHER ==
[~2018-12-17] VITALS: Ht 152.4 cm; Wt 49.9 kg
[~2018-12-17 07:37] MED LIST changes: +KEFLEX500 M1 PO
[2018-12-17 07:40] VITALS: Ht 152.4 cm; Wt 49.9 kg
--- NOTE | 2018-12-17 07:46 | NUR ---
PT BIB [facility]BULANCE FROM HER PRIVATE RESIDENCE FOR BODY PAIN ALL OVER NO RECENT FALL OR TRAUMA HX OF MULTIPLE SCLEROSIS. PT IS NORMALLY CONFUSED PER MEDICS. PT AWAKE AND ALERT ORIENTED TO SELF AND PLACE. PT FOLLOWS SIMPLE COMMANDS PLACED IN POSITION OF COMFORT WARM BLANKET PROVIDED PT AFEBRILE. AWAITING MD GONZALES AND ORDERS PRIMARY NURSE TIMA RESUMING CARE OF PT.
--- NOTE | 2018-12-17 08:45 | NUR ---
PERINEAL CARE PROVIDED, ERYTHEMA WITH SCATTERED ABRASIONS NOTED TO SACRAL REGION
--- NOTE | 2018-12-17 08:49 | NUR ---
LAB AT BEDSIDE
--- NOTE | 2018-12-17 09:21 | NUR ---
EKG IN PROGRESS
[2018-12-17 09:24] LABS: BASOPHIL % 0.7 % (0-2); PLATELET COUNT 263 x10^3mcL (130-400)
[2018-12-17 09:26] LABS: RED CELL DISTRIBUTION WIDTH 18.5 % (11.5-14.5)
--- NOTE | 2018-12-17 09:29 | NUR ---
EKG IN PROGRESS BY ALEXX MARTINEZ
--- NOTE | 2018-12-17 09:30 | NUR ---
DECORTICATE POSTURING NOTED, HR 50, BP 125/57 (73), SPO2 100% VIA 2L NC, RR 14, MD OSMAN MADE AWARE, SINUS ALBA ON CM
[2018-12-17 09:31] LABS: CALCIUM 10.9 mg/dL (8.5-10.1); CARBON DIOXIDE 22.6 mmol/L (21-32); CHLORIDE SERUM 107 mmol/L (98-107); GLUCOSE SERUM 152 mg/dL (74-106); SODIUM SERUM 142 mmol/L (136-145)
--- NOTE | 2018-12-17 09:33 | NUR ---
PORTABLE CXR AT BEDSIDE
[2018-12-17 09:35] LABS: ALKALINE PHOSPHATASE 90 U/L (46-116); ALT/SGPT 26 U/L (14-59); AST/SGOT 33 U/L (15-37); BILIRUBIN TOTAL 0.62 mg/dL (0.20-1.00); TOTAL PROTEIN, SERUM 7.8 g/dL (6.4-8.2)
[2018-12-17 09:44] LABS: ALBUMIN 3.1 g/dL (3.4-5.0)
--- NOTE | 2018-12-17 09:50 | NUR ---
PT STS "IT BIRD DOWN THERE IN MY PEE" MD OSMAN MADE AWARE
--- NOTE | 2018-12-17 10:22 | NUR ---
PT RESTING IN POSITION OF COMFORT, RESPS E/U, VSS, PT MEDICATED PER MD ORDER, SEE EMAR, WILL CONTINUE TO MONITOR
[2018-12-17 10:32] LABS: microscopic required? YES; urine erythrocyte 2+ (NEGATIVE)
--- NOTE | 2018-12-17 11:26 | NUR ---
JESU EASTMAN [phone] CALL IF SHES AMDITTED OR D/C SO HE CAN COME PICK HER UP.
--- NOTE | 2018-12-17 11:57 | NUR ---
PT ASLEEP BUT AROUSABLE IN POSITION OF COMFORT, RESPS E/U, VSS, ROCEPHIN INFUSING PER EMAR AND MD ORDER, PT IN NAD, WILL CONTINUE TO MONITOR
--- NOTE | 2018-12-17 12:44 | NUR ---
PT ASLEEP BUT AROUSABLE, RESPS E/U
--- NOTE | 2018-12-17 13:13 | NUR ---
UNABLE TO RECONCILE HOME MEDS, NOT AVAILABLE AT THIS TIME, PRATIMA ARGUELLO FROM MED SURG AWARE AND GIVEN REPORT TO RESUME CARE OF PT AT THIS TIME
--- NOTE | 2018-12-17 13:24 | NUR ---
RECEIVED PT VIA GURNEY FROM E/D, ACCOMPANIED BY TRANSPORTER. AWAKE, CONFUSED (ORIENTED ONLY TO SELF), UNABLE TO FOLLOW COMMANDS, GARBLED SPEECH. NO S/S CHEST PAIN OR DISCOMFORT NOTED. SCD BY BEDSIDE. LUNGS CTAB, CHEST RISING EVENLY, 2LNC, 99%, NO ACUTE RESPIRATORY DISTRESS NOTED. ABD SOFT, FLAT, NON-TENDER, NORMOACTIVE BOWEL SOUNDS X 4 QUADS, UTD LAST BM D/T CONFUSED. PER E/D, PT REPORTS DYSURIA, INCONTINENT OF BLADDER. GENERALIZED WEAKNESS, DECORTICATE POSTURE, FALL RISK PROTOCOL IN PLACE. BLANCHABLE ERYTHEMA W/ ABRASIONS TO SACRAL REGION; CLEANSED W/ NS, PATTED DRY, APPLIED OPTIFOAM; ON LALM FOR SKIN MANAGEMENT; WILL ASK ADMITTING MD FOR F/C ORDER. IV SITE RFA 20G, CDI. UNABLE TO ORIENT PT OR HAVE HER PARTICIPATE IN ANY TEACHING D/T CONFUSED. SIDE RAILS UP X 2, BED IN LOW POSITION, CALL LIGHT WITHIN REACH. WILL ENDORSE TO JOS FIGUEROA.
[2018-12-17 14:27] VITALS: BP 141/49
--- NOTE | 2018-12-17 15:00 | NUR ---
PT RESTING COMFORTABLY IN BED AT THIS TIME. NO DISTRESS OR SOB NOTED. SAFETY PRECATIONS IN PLACE, CALL LIGHT WITHIN REACH, WILL MONITOR.
[2018-12-17 16:40] VITALS: BP 158/57
--- NOTE | 2018-12-17 17:30 | NUR ---
PT STILL STABLE AT THIS TIME. ALL CARES MET. NO DISTRESS NOTED. WILL CONTINUE TO MONITOR.
--- NOTE | 2018-12-17 19:03 | NUR ---
ASPIRATION PERCAUTIONS IN PLACE D/T PT STILL DROWSY FROM ER MEDICATION. WILL ENDORSE TO SOCK EXAMINER TO F/U WITH DR OVALLE ON POC. IV INTACT AND PATENT WITH NO REDNESS OR INFLAMMATION NOTED. PT RESTING COMFORTABLY IN BED. BUTTOCKS CLEANED, Z GUARD APPLIED, AND PIC TAKEN.PT LAYING ON AIR MATTRESS.VS WNL, NO DISTRESS NOTED. SAFETY PRECAUTIONS IN PLACE, CALL LIGHT WITHIN REACH, ENDORSED TO NIGHT NURSE.
--- NOTE | 2018-12-17 19:32 | NUR ---
RECEIVED PATIENT LETHARGIC WITH NO SIGN OF DISTRESS, BREATHING EASY AND NONLABOR .ON O2 AT 2L VIA NC WITH CLEAR BS ON AUSCULTATION. MED.SURG PATIENT. IV TO RFA INTACT AND INFUSING WELL WITH NO SIGN OF INFILTRATION NOTED. ON AIR MATTRESS AND BED TO LOWEST POSITION. WILL CONTINUE TO MONITOR.
[2018-12-17 20:37] VITALS: BP 157/49
--- NOTE | 2018-12-17 22:14 | NUR ---
AWAKE THIS TIME ABLE TO MAKE NEEDS KNOWN. DUE PO MEDS CRUSHED AND GIVEN. REPOSITIONED FOR COMFORT. WILL CONTINUE TO MONITOR.
--- NOTE | 2018-12-17 23:03 | NUR ---
PATIENT PULLED HER IV AND TRYING TO GET OUT OF BED. REINSERTED NEW IV TO RFA INTACT AND INFUSING WELL.
--- NOTE | 2018-12-17 23:19 | NUR ---
TRANSFER OF CARE GIVEN TO [facility], [place], REPORT GIVEN.
--- NOTE | 2018-12-17 23:25 | NUR ---
RECIEVED PT FROM JOS LANE. PT WAS PLACED ON 250A. PT IN NO DISTRESS. AWAKE BUT COMFUSED. ORIENTATED ONLY TO SELF. UPPER AND BOTTOM DENTURES NOTED. MED SURG. LUNGS CLEAR IN ALL FEILDS. ON 2L NC. NO SIGN OF RESP DISTRESS. EQUAL CHEST RISE AND FALL. BOWEL SOUNDS PRESENT x4. INCONTINENT OF URINE AND STOOL. ON AN AIR MATTRESS. OPTIFOAM ON COCCYX. ERYTHEMA NOTED ON TO SACRAL AREA. NO SIGN OF PAIN NOTED. IV ON RFA INTACT AND PATENT. SECURED WITH KERLIX WRAP. BED IS AT LOWEST SETTING. CALL LIGHT WITHIN REACH. WILL CONTINUE TO MONTIOR.
--- NOTE | 2018-12-18 01:40 | NUR ---
PT IS RESTING IN BED. VERY VOCAL. STATING SHE HAS MEDICATION STUCK IN HER CHEEK. CHECKED MOUTH WITH LIGHT AND NOTHING NOTED. GAVE PT WATER TO DRINK. KEEPS REMOVING AND INSERTING LOWER DENTURES. NO ABNORMAL GUMS NOTED. EDUCATED PT THAT NOTHING IS THERE. PT STATES SHE IS AWARE. BED IS AT LOWEST SETTING. CALL LIGHT WITHIN REACH. WILL CONTINUE TO MONITOR.
--- NOTE | 2018-12-18 06:20 | NUR ---
PT IS RESTING IN BED. DENIES ANY PAIN OR DISTRESS. IV INTACT AND PATENT. NO ACUTE EVENT OCCURED AT NIGHT. BED IS AT LOWEST SETTING. CALL LIGHT WITHIN REACH. WILL ENDORSE TO AM NURSE.
[2018-12-18 06:21] VITALS: BP 152/57
--- NOTE | 2018-12-18 07:28 | NUR ---
ASSUMED CARE OF PATIENT. AWAKE THIS MORNING WITH NO COMPLAINTS OF PAIN OR DISCOMFORT. NO APPARENT DISTRESS NOTED. ON 2L NC. SITTER AT BEDSIDE. RFA IV PATENT AND INUFSING NS AT 80 ML/HR. WILL CONTINUE TO MONITOR.
[2018-12-18 08:33] VITALS: BP 150/66
--- NOTE | 2018-12-18 09:15 | NUR ---
PATIENT RESTING IN BED WITH NO COMPLAINTS OF PAIN OR DISCOMFORT. REMAINING ON 2L O2 AT THIS TIME. NO APPARENT DISTRESS NOTED. NO NEW ISSUES.
--- NOTE | 2018-12-18 10:00 | NUR ---
PER PT EVALUATION, PATIENT ABLE TO AMBULATED WITH WALKER TO DOOR AND BACK. GAIT IS UNSTEADY AND REQUIRES 1 PERSON ASSIST.
--- NOTE | 2018-12-18 10:06 | NUR ---
SCREEN FOR LOW BING SCALE AT RISK CONTINUE PRESSURE ULCER INJURY PREVENTION INTERVENTIONS: -TURN AND REPOSITION PATIENT Q 2H OFFLOAD LEFT AND RIGHT HIPS -ASSESS AND MONITOR SKIN CONDITION DURING POSITION CHANGE -OFFLOAD BILATERAL HEELS BY PLACING PILLOWS UNDER CALVES AT ALL TIMES, UNLESS OTHERWISE CONTRAINDICATED -PRESSURE REDISTRIBUTION SURFACE THERAPY -KEEP SKIN CLEAN AND DRY AT ALL TIMES. -APPLY OPTIFOAM TO SACRALCOCCYX PREVENTION QD AND PRN IF SOILING
--- NOTE | 2018-12-18 10:41 | NUR ---
PER HOUSE ADMIN ORDERS: HEEL PROTECTORS PLACED ON PATIENT, BILATERAL LOWER LEGS ELEVATED WITH PILLOW. SACRAL AREA CLEANSED WITH NS AND OPTIFOAM PLACED WITH ZGAURD PLACED IN GROIN.
[2018-12-18] MEDS ORDERED: MAC100 PO (13:47)
[2018-12-18 13:49] VITALS: BP 152/57
[2018-12-18 13:51] VITALS: BP 152/57
--- NOTE | 2018-12-18 14:02 | NUR ---
PATIENTS JUAN M LAW CONTACTED FOR PICKUP FOR DISCHARGE. ARRIVAL IN APPROXIMATELY 1 HOUR.
--- NOTE | 2018-12-18 14:30 | NUR ---
WOUND PHOTO OF SACRUM TAKEN AND PLACED IN CHART.
--- NOTE | 2018-12-18 15:16 | NUR ---
PATIENT DISCHARGED VIA WHEELCHAIR AND AT SIDE. NO COMPLAINTS OF PAIN OR DISCOMFORT. NO APPARENT DISTRESS NOTED. ID BAND REMOVED. LEFT WITH ALL BELONGINGS.
== END 2018-12-18 15:18 | disposition home or self-care (01) | DRG 690 ==
LOC: ED 07:37 → MU 12:25
PROVIDERS: Emergency Medicine; ADMIT Internal Medicine Pulmonary Disease
DX: N39.0 Urinary tract infection, site not specified (principal); G35 Multiple sclerosis; M79.18 Myalgia, other site; F03.90 Unspecified dementia, unspecified severity, without behavioral disturbance, psychotic disturbance, mood disturbance, and anxiety; I10 Essential (primary) hypertension; E78.5 Hyperlipidemia, unspecified; Z86.73 Personal history of transient ischemic attack (TIA), and cerebral infarction without residual deficits
CPT/HCPCS: 97116-GP; G0378; J0696; J1644; J2060; J3010; J7030; J7060

== ENCOUNTER 2019-01-09 14:59 | Inpatient (IN) | payer OTHER ==
[~2019-01-09] VITALS: Ht 162.6 cm; Wt 42.2 kg
[~2019-01-09 14:59] MED LIST changes: +MAC100 PO
[2019-01-09 16:20] LABS: BASOPHIL % 0.3 % (0-2); PLATELET COUNT 235 x10^3mcL (130-400)
[2019-01-09 16:21] LABS: RED CELL DISTRIBUTION WIDTH 19.4 % (11.5-14.5)
[2019-01-09 16:31] LABS: CALCIUM 10.2 mg/dL (8.5-10.1); CARBON DIOXIDE 24.6 mmol/L (21-32); CHLORIDE SERUM 105 mmol/L (98-107); CREATININE SERUM 0.8 mg/dL (0.6-1.0); GLUCOSE SERUM 159 mg/dL (74-106); POTASSIUM SERUM 4.2 mmol/L (3.5-5.1); SODIUM SERUM 137 mmol/L (136-145)
[2019-01-09 16:35] LABS: ALKALINE PHOSPHATASE 80 U/L (46-116); ALT/SGPT 22 U/L (14-59); AST/SGOT 56 U/L (15-37); BILIRUBIN TOTAL 0.66 mg/dL (0.20-1.00)
[2019-01-09 16:36] LABS: ALBUMIN 2.7 g/dL (3.4-5.0)
[2019-01-09 18:33] LABS: microscopic required? YES; urine erythrocyte 3+ (NEGATIVE)
[2019-01-10 00:12] VITALS: BP 156/84
[2019-01-10 01:35] VITALS: BP 147/56
[2019-01-10 06:23] VITALS: BP 140/70
[2019-01-10 09:20] VITALS: BP 151/85
[2019-01-10 16:03] VITALS: BP 141/66
[2019-01-10 21:51] VITALS: BP 137/54
[2019-01-11 06:42] VITALS: BP 155/70
[2019-01-11 06:47] LABS: BASOPHIL % 0.9 % (0-2); PLATELET COUNT 177 x10^3mcL (130-400)
[2019-01-11 07:33] LABS: ALKALINE PHOSPHATASE 61 U/L (46-116); ALT/SGPT 19 U/L (14-59); AST/SGOT 47 U/L (15-37); CALCIUM 9.3 mg/dL (8.5-10.1); CARBON DIOXIDE 21.9 mmol/L (21-32); CHLORIDE SERUM 110 mmol/L (98-107); CREATININE SERUM 0.5 mg/dL (0.6-1.0); GLUCOSE SERUM 84 mg/dL (74-106); MAGNESIUM 1.9 mg/dL (1.8-2.4); POTASSIUM SERUM 3.5 mmol/L (3.5-5.1); SODIUM SERUM 141 mmol/L (136-145)
[2019-01-11 07:34] LABS: ALBUMIN 2.2 g/dL (3.4-5.0); TOTAL PROTEIN, SERUM 5.7 g/dL (6.4-8.2)
[2019-01-11 11:03] VITALS: BP 159/86
[2019-01-11 17:35] VITALS: BP 147/57
[2019-01-11 21:24] VITALS: BP 180/74
[2019-01-12 05:21] VITALS: BP 125/82
[2019-01-12 06:36] LABS: BASOPHIL % 0.7 % (0-2); PLATELET COUNT 209 x10^3mcL (130-400)
[2019-01-12 06:52] LABS: RED CELL DISTRIBUTION WIDTH 18.5 % (11.5-14.5)
[2019-01-12 07:12] VITALS: Ht 162.6 cm; Wt 42.2 kg
[2019-01-12 07:19] LABS: ALKALINE PHOSPHATASE 60 U/L (46-116); ALT/SGPT 24 U/L (14-59); AST/SGOT 43 U/L (15-37); BILIRUBIN TOTAL 0.4 mg/dL (0.20-1.00); CALCIUM 9.1 mg/dL (8.5-10.1); CARBON DIOXIDE 23.5 mmol/L (21-32); CHLORIDE SERUM 107 mmol/L (98-107); CREATININE SERUM 0.6 mg/dL (0.6-1.0); GLUCOSE SERUM 85 mg/dL (74-106); MAGNESIUM 1.4 mg/dL (1.8-2.4); SODIUM SERUM 142 mmol/L (136-145); TOTAL PROTEIN, SERUM 6.2 g/dL (6.4-8.2)
[2019-01-12 07:25] LABS: ALBUMIN 2.5 g/dL (3.4-5.0); POTASSIUM SERUM 2.5 mmol/L (3.5-5.1)
[2019-01-12 08:38] VITALS: BP 168/85
[2019-01-12 17:29] VITALS: BP 182/82
[2019-01-12 21:21] VITALS: BP 150/77
[2019-01-13 05:13] VITALS: BP 155/82
[2019-01-13 07:13] LABS: CALCIUM 8.5 mg/dL (8.5-10.1); CARBON DIOXIDE 21.1 mmol/L (21-32); CHLORIDE SERUM 107 mmol/L (98-107); CREATININE SERUM 0.5 mg/dL (0.6-1.0); GLUCOSE SERUM 106 mg/dL (74-106); POTASSIUM SERUM 3.4 mmol/L (3.5-5.1); SODIUM SERUM 140 mmol/L (136-145)
[2019-01-13 07:18] LABS: ALKALINE PHOSPHATASE 66 U/L (46-116); ALT/SGPT 24 U/L (14-59); AST/SGOT 42 U/L (15-37); BILIRUBIN TOTAL 0.46 mg/dL (0.20-1.00); TOTAL PROTEIN, SERUM 6.7 g/dL (6.4-8.2)
[2019-01-13 07:37] LABS: ALBUMIN 2.7 g/dL (3.4-5.0)
[2019-01-13 08:03] VITALS: BP 144/79
[2019-01-13 11:53] VITALS: BP 144/79
== END 2019-01-13 13:50 | DRG 871 ==
LOC: ED 14:59 → MU 20:59
PROVIDERS: Emergency Medicine; Internal Medicine Pulmonary Disease; ADMIT Internal Medicine
DX: A41.9 Sepsis, unspecified organism (principal); G93.41 Metabolic encephalopathy; N39.0 Urinary tract infection, site not specified; E44.0 Moderate protein-calorie malnutrition; R26.81 Unsteadiness on feet; R54 Age-related physical debility; G35 Multiple sclerosis; F03.90 Unspecified dementia, unspecified severity, without behavioral disturbance, psychotic disturbance, mood disturbance, and anxiety; I10 Essential (primary) hypertension
CPT/HCPCS: 97110-GP; 97112-GP; 97530-GP; G0378; G0480; J0696; J1450; J1644; J3475; J3480; J7030; J7060

== ENCOUNTER 2019-02-11 00:14 | Inpatient (IN) | payer OTHER ==
[~2019-02-11] VITALS: Ht 162.6 cm; Wt 42.6 kg
[2019-02-11 00:26] VITALS: Ht 162.6 cm; Wt 42.6 kg
[2019-02-11 01:10] LABS: BASOPHIL % 0.5 % (0-2); PLATELET COUNT 239 x10^3mcL (130-400)
[2019-02-11 01:19] LABS: ALKALINE PHOSPHATASE 113 U/L (46-116); ALT/SGPT 30 U/L (14-59); AST/SGOT 47 U/L (15-37); CALCIUM 9.6 mg/dL (8.5-10.1); CARBON DIOXIDE 23.3 mmol/L (21-32); CHLORIDE SERUM 105 mmol/L (98-107); CREATININE SERUM 0.8 mg/dL (0.6-1.0); GLUCOSE SERUM 143 mg/dL (74-106); LIPASE 126 IU/L (73-393); SODIUM SERUM 139 mmol/L (136-145); TOTAL PROTEIN, SERUM 7.3 g/dL (6.4-8.2)
[2019-02-11 01:21] LABS: ALBUMIN 2.9 g/dL (3.4-5.0)
[2019-02-11 01:24] LABS: POTASSIUM SERUM 2.5 mmol/L (3.5-5.1)
[2019-02-11 04:18] LABS: UA SPECIFIC GRAVITY <=1.005 (1.005-1.035); microscopic required? YES; urine erythrocyte 2+ (NEGATIVE)
[2019-02-11 08:22] VITALS: BP 161/58
[2019-02-11 09:13] LABS: BASOPHIL % 0.8 % (0-2); PLATELET COUNT 219 x10^3mcL (130-400)
[2019-02-11 09:31] LABS: RED CELL DISTRIBUTION WIDTH 16.9 % (11.5-14.5)
[2019-02-11 09:37] LABS: CALCIUM 8.6 mg/dL (8.5-10.1); CARBON DIOXIDE 27.9 mmol/L (21-32); CHLORIDE SERUM 110 mmol/L (98-107); CREATININE SERUM 0.7 mg/dL (0.6-1.0); GLUCOSE SERUM 91 mg/dL (74-106); MAGNESIUM 1.5 mg/dL (1.8-2.4); SODIUM SERUM 143 mmol/L (136-145)
[2019-02-11 09:48] LABS: POTASSIUM SERUM 2.6 mmol/L (3.5-5.1)
[2019-02-11 13:17] VITALS: BP 146/60
[2019-02-11 16:51] VITALS: BP 117/65
[2019-02-11 21:07] VITALS: BP 160/61
[2019-02-12 05:55] VITALS: BP 181/63
[2019-02-12 06:25] LABS: CALCIUM 8.5 mg/dL (8.5-10.1); CARBON DIOXIDE 24.3 mmol/L (21-32); CHLORIDE SERUM 113 mmol/L (98-107); CREATININE SERUM 0.7 mg/dL (0.6-1.0); GLUCOSE SERUM 139 mg/dL (74-106); MAGNESIUM 1.9 mg/dL (1.8-2.4); POTASSIUM SERUM 4.2 mmol/L (3.5-5.1); SODIUM SERUM 143 mmol/L (136-145)
[2019-02-12 09:25] VITALS: BP 170/71
[2019-02-12 12:22] VITALS: BP 163/90
[2019-02-12 15:37] VITALS: BP 148/57
[2019-02-12 15:39] VITALS: BP 148/57
== END 2019-02-12 16:42 | disposition home health service (06) | DRG 690 ==
LOC: ED 00:14 → MU 05:39 → DU 05:39 → MU 07:44 → DU 08:35
PROVIDERS: Emergency Medicine; ADMIT Internal Medicine Pulmonary Disease
DX: N39.0 Urinary tract infection, site not specified (principal); B96.5 Pseudomonas (aeruginosa) (mallei) (pseudomallei) as the cause of diseases classified elsewhere; S00.10XA Contusion of unspecified eyelid and periocular area, initial encounter; T14.8XXA Other injury of unspecified body region, initial encounter; I10 Essential (primary) hypertension; G35 Multiple sclerosis; E78.5 Hyperlipidemia, unspecified; Z91.81 History of falling; Z86.73 Personal history of transient ischemic attack (TIA), and cerebral infarction without residual deficits; W19.XXXA Unspecified fall, initial encounter; Y92.009 Unspecified place in unspecified non-institutional (private) residence as the place of occurrence of the external cause
CPT/HCPCS: 97110-GP; 97112-GP; 97530-GP; G0378; J0696; J2270; J2405; J3475; J3480; J3490; J7030; J7040; Q0092

== ENCOUNTER 2019-03-03 17:00 | Inpatient (IN) | payer OTHER ==
[~2019-03-03] VITALS: Ht 152.4 cm; Wt 50.0 kg
[2019-03-03 17:11] VITALS: Ht 152.4 cm; Wt 50.0 kg
[2019-03-03 18:16] LABS: BASOPHIL % 0.8 % (0-2); PLATELET COUNT 255 x10^3mcL (130-400); RED CELL DISTRIBUTION WIDTH 16.8 % (11.5-14.5)
[2019-03-03 18:20] LABS: CALCIUM 10.8 mg/dL (8.5-10.1); CARBON DIOXIDE 25.6 mmol/L (21-32); CHLORIDE SERUM 102 mmol/L (98-107); CREATININE SERUM 0.8 mg/dL (0.6-1.0); GLUCOSE SERUM 94 mg/dL (74-106); POTASSIUM SERUM 3.3 mmol/L (3.5-5.1); SODIUM SERUM 138 mmol/L (136-145)
[2019-03-03 18:22] LABS: UA SPECIFIC GRAVITY 1.015 (1.005-1.035); microscopic required? YES; urine erythrocyte 3+ (NEGATIVE)
[2019-03-03 18:25] LABS: ALKALINE PHOSPHATASE 79 U/L (46-116); ALT/SGPT 31 U/L (14-59); AST/SGOT 45 U/L (15-37); BILIRUBIN TOTAL 1.13 mg/dL (0.20-1.00); LIPASE 38 IU/L (73-393); TOTAL PROTEIN, SERUM 6.9 g/dL (6.4-8.2)
[2019-03-03 18:31] LABS: ALBUMIN 3.3 g/dL (3.4-5.0)
[2019-03-03 23:24] VITALS: BP 147/99
[2019-03-04 05:27] VITALS: BP 121/59
[2019-03-04 06:36] LABS: BASOPHIL % 1.6 % (0-2); PLATELET COUNT 213 x10^3mcL (130-400)
[2019-03-04 07:12] LABS: ALKALINE PHOSPHATASE 64 U/L (46-116); ALT/SGPT 27 U/L (14-59); AST/SGOT 43 U/L (15-37); BILIRUBIN TOTAL 0.7 mg/dL (0.20-1.00); CALCIUM 9.3 mg/dL (8.5-10.1); CARBON DIOXIDE 20.6 mmol/L (21-32); CHLORIDE SERUM 111 mmol/L (98-107); CREATININE SERUM 0.8 mg/dL (0.6-1.0); GLUCOSE SERUM 77 mg/dL (74-106); MAGNESIUM 1.5 mg/dL (1.8-2.4); POTASSIUM SERUM 3.9 mmol/L (3.5-5.1); SODIUM SERUM 141 mmol/L (136-145)
[2019-03-04 07:29] LABS: ALBUMIN 2.6 g/dL (3.4-5.0); TOTAL PROTEIN, SERUM 5.8 g/dL (6.4-8.2)
[2019-03-04 09:15] VITALS: BP 153/71
[2019-03-04 17:18] VITALS: BP 147/55
[2019-03-04 20:28] VITALS: BP 157/69
[2019-03-05 05:03] VITALS: BP 160/58
[2019-03-05 06:35] LABS: ALKALINE PHOSPHATASE 78 U/L (46-116); ALT/SGPT 30 U/L (14-59); AST/SGOT 41 U/L (15-37); BILIRUBIN TOTAL 0.4 mg/dL (0.20-1.00); CARBON DIOXIDE 23.8 mmol/L (21-32); CHLORIDE SERUM 107 mmol/L (98-107); CREATININE SERUM 0.7 mg/dL (0.6-1.0); GLUCOSE SERUM 114 mg/dL (74-106); MAGNESIUM 2.2 mg/dL (1.8-2.4); POTASSIUM SERUM 3.6 mmol/L (3.5-5.1); SODIUM SERUM 139 mmol/L (136-145)
[2019-03-05 06:49] LABS: ALBUMIN 2.5 g/dL (3.4-5.0); BASOPHIL % 0.9 % (0-2); PLATELET COUNT 260 x10^3mcL (130-400)
[2019-03-05 07:14] LABS: RED CELL DISTRIBUTION WIDTH 17.6 % (11.5-14.5)
[2019-03-05 08:13] VITALS: BP 176/72
[2019-03-05] MEDS ORDERED: LEVAQUIN750 MG PO (10:17)
[2019-03-05 13:14] VITALS: BP 161/55
[2019-03-05 17:05] VITALS: BP 103/82
[2019-03-05 21:16] VITALS: BP 136/70
[2019-03-06 05:34] VITALS: BP 178/83
[2019-03-06 08:05] VITALS: BP 184/92
[2019-03-06 16:45] VITALS: BP 153/82
[2019-03-06 20:46] VITALS: BP 149/79
[2019-03-06 23:06] VITALS: BP 154/80
[2019-03-07 04:00] VITALS: BP 113/75
[2019-03-07 05:15] VITALS: BP 118/80
[2019-03-07 08:01] LABS: CHOLESTEROL/HDL RATIO 8.8
[2019-03-07 14:33] VITALS: BP 140/90
[2019-03-07 20:41] VITALS: BP 155/68
[2019-03-08 06:08] VITALS: BP 161/80
[2019-03-08 07:09] LABS: BASOPHIL % 0.6 % (0-2); PLATELET COUNT 242 x10^3mcL (130-400)
[2019-03-08 07:23] LABS: ALKALINE PHOSPHATASE 64 U/L (46-116); ALT/SGPT 27 U/L (14-59); AST/SGOT 35 U/L (15-37); BILIRUBIN TOTAL 0.5 mg/dL (0.20-1.00); CALCIUM 9.3 mg/dL (8.5-10.1); CARBON DIOXIDE 26.9 mmol/L (21-32); CHLORIDE SERUM 106 mmol/L (98-107); CREATININE SERUM 0.6 mg/dL (0.6-1.0); GLUCOSE SERUM 100 mg/dL (74-106); SODIUM SERUM 143 mmol/L (136-145); TOTAL PROTEIN, SERUM 6.2 g/dL (6.4-8.2)
[2019-03-08 07:34] LABS: RED CELL DISTRIBUTION WIDTH 17.9 % (11.5-14.5)
[2019-03-08 08:04] LABS: ALBUMIN 2.7 g/dL (3.4-5.0); POTASSIUM SERUM 2.4 mmol/L (3.5-5.1)
[2019-03-08 09:40] VITALS: BP 169/78
[2019-03-08 13:47] VITALS: BP 151/76
[2019-03-08 16:27] VITALS: BP 129/69
[2019-03-08 20:20] VITALS: BP 128/60
[2019-03-09 05:13] VITALS: BP 142/68
[2019-03-09 07:24] LABS: PLATELET COUNT 227 x10^3mcL (130-400)
[2019-03-09 07:25] LABS: RED CELL DISTRIBUTION WIDTH 17.7 % (11.5-14.5)
[2019-03-09 08:50] VITALS: BP 162/76
[2019-03-09 12:13] LABS: CALCIUM 9.3 mg/dL (8.5-10.1); CARBON DIOXIDE 28.6 mmol/L (21-32); CHLORIDE SERUM 106 mmol/L (98-107); CREATININE SERUM 0.7 mg/dL (0.6-1.0); GLUCOSE SERUM 119 mg/dL (74-106); POTASSIUM SERUM 3.2 mmol/L (3.5-5.1); SODIUM SERUM 143 mmol/L (136-145)
[2019-03-09 13:06] VITALS: BP 143/66
[2019-03-09 16:25] VITALS: BP 119/59
[2019-03-09 20:32] VITALS: BP 128/56
[2019-03-10 06:00] VITALS: BP 141/59
[2019-03-10 07:30] LABS: CALCIUM 9.3 mg/dL (8.5-10.1); CARBON DIOXIDE 27.5 mmol/L (21-32); CHLORIDE SERUM 107 mmol/L (98-107); CREATININE SERUM 0.8 mg/dL (0.6-1.0); GLUCOSE SERUM 97 mg/dL (74-106); POTASSIUM SERUM 3.1 mmol/L (3.5-5.1); SODIUM SERUM 141 mmol/L (136-145)
[2019-03-10 09:42] VITALS: BP 135/50
[2019-03-10 12:22] VITALS: BP 106/52
[2019-03-10 15:27] VITALS: BP 106/52
== END 2019-03-10 16:31 | DRG 689 ==
LOC: ED 17:00 → MU 19:48 → DU 19:48 → MU 19:48 → DU 03-06 14:04 → IC 03-07 07:21 → DU 03-07 16:58 → IC 03-07 17:04 → DU 03-07 17:38
PROVIDERS: Emergency Medicine; Internal Medicine Cardiovascular Disease; Internal Medicine Pulmonary Disease; ADMIT Internal Medicine Pulmonary Disease
DX: N39.0 Urinary tract infection, site not specified (principal); I21.4 Non-ST elevation (NSTEMI) myocardial infarction; I48.92 Unspecified atrial flutter; G35 Multiple sclerosis; R11.2 Nausea with vomiting, unspecified; E83.42 Hypomagnesemia; E87.6 Hypokalemia; K59.00 Constipation, unspecified; R54 Age-related physical debility; L27.0 Generalized skin eruption due to drugs and medicaments taken internally; T36.1X5A Adverse effect of cephalosporins and other beta-lactam antibiotics, initial encounter; I10 Essential (primary) hypertension; M54.5 Low back pain; G89.29 Other chronic pain; F03.90 Unspecified dementia, unspecified severity, without behavioral disturbance, psychotic disturbance, mood disturbance, and anxiety; Z68.21 Body mass index [BMI] 21.0-21.9, adult; Z86.73 Personal history of transient ischemic attack (TIA), and cerebral infarction without residual deficits; Y92.230 Patient room in hospital as the place of occurrence of the external cause
CPT/HCPCS: 97530-GP; A9500; G0378; J0282; J0696; J0713; J1160; J1630; J1644; J1650; J1956; J2405; J2785; J3475; J3480; J3490; J7030; J7040; J7060; J7120; Q0092; Q0163; Q9967

== ENCOUNTER 2019-03-15 15:24 | Inpatient (IN) | payer OTHER ==
[~2019-03-15] VITALS: Ht 152.4 cm; Wt 44.0 kg
[~2019-03-15 15:24] MED LIST changes: +LEVAQUIN750 MG PO
--- NOTE | 2019-03-15 15:58 | NUR ---
PT PRESENTS TO ED BIB AMBULANCE WITH C/O OF DYSURIA. PER EMS PT REPORTS DYSURIA X2 DAY WITH DECREASED APPETITE. PER EMS PT HAS BEEN HERE A FEW TIMES WITH SAME ISSUE. PER EMS PT 12-LEAD EKG WAS NORMAL. PT ABLE TO ANSWER MOST QUESTIONS APPROPRIATELY BUT NEEDS TO BE PROMPTED AT TIMES TO ANSWER. PT AAOX4, RESP E/U, ON FULL CM, NO ACUTE DISTRESS NOTED AT THIS TIME. WILL CONTINUE TO MONITOR.
[2019-03-15 16:45] LABS: BASOPHIL % 0.8 % (0-2); PLATELET COUNT 196 x10^3mcL (130-400)
--- NOTE | 2019-03-15 17:05 | NUR ---
PT TURNED ON LEFT SIDE, AAOX4, RESP E/U, NO ACUTE DISTRESS NOTED AT THIS TIME. WILL CONTINUE TO MONITOR.
--- NOTE | 2019-03-15 17:20 | NUR ---
PT OFF FLOOR TAKEN FOR CT SCAN VIA RNEY.
[2019-03-15 17:37] LABS: CALCIUM 10.2 mg/dL (8.5-10.1); CHLORIDE SERUM 105 mmol/L (98-107); CREATININE SERUM 1.4 mg/dL (0.6-1.0); GLUCOSE SERUM 112 mg/dL (74-106); POTASSIUM SERUM 3.3 mmol/L (3.5-5.1); SODIUM SERUM 140 mmol/L (136-145)
[2019-03-15 17:41] LABS: ALKALINE PHOSPHATASE 89 U/L (46-116); ALT/SGPT 33 U/L (14-59); AST/SGOT 56 U/L (15-37); BILIRUBIN TOTAL 0.37 mg/dL (0.20-1.00); LIPASE 148 IU/L (73-393); TOTAL PROTEIN, SERUM 6.2 g/dL (6.4-8.2)
[2019-03-15 17:43] LABS: ALBUMIN 2.6 g/dL (3.4-5.0)
[2019-03-15 17:48] LABS: microscopic required? YES; urine erythrocyte 2+ (NEGATIVE)
--- NOTE | 2019-03-15 19:02 | NUR ---
PT TURNED TO RT SIDE, AAOX4, RESP E/U, NO ACUTE DISTRESS NOTED AT THIS TIME. WILL CONTINUE TO MONITOR.
--- NOTE | 2019-03-15 19:23 | NUR ---
REPORT GIVEN TO JOS CURRIE TO ASSUME CARE OF PT. ALL QUESTIONS ANSWERED AND ADDRESSED.
--- NOTE | 2019-03-15 20:21 | NUR ---
PT TRANSFERRED TO TELE FLOOR ACCOMPANIED BY NURSE AND EMT. NO S/S OF DISTRESS. RESP E/U. IV SITE PATENT. NO S/S OF INFILTRATION. RN MADE AWARE OF FLUIDS CONTINUING TO RUN.
--- NOTE | 2019-03-15 20:26 | NUR ---
RECEIVED PT FROM ED VIA MARIA ELENA, CAME IN DUE TO PAIN ON URINATION. ORIENTED TO PERSON, PLACE AND BIRTHDATE. FORGETFUL. DROWSY BUT AROUSABLE TO VERBAL STIMULI. ABLE TO FOLLOW COMMANDS. NO SOB NOTED, O2 PNE=516%, RA. DENIES CHEST PAIN/PRESSURE, SINUS BRADYCARDIA ON THE MONITOR. DENIES ABDOMINAL DISCOMFORT. ABDOMEN IS SOFT. W/ TURKISH 16 CAMPA CATHETER DRAINING W/ YELLOW COLORED URINE. W/ MULTIPLE ECCHYMOSIS ON BUE, RLE, RIGHT ABDOMEN AND RIGHT LATERAL BACK, PETE. IV SITE PATENT AND INTACT. SIDE RAILS UPX2. CALL LIGHT ON REACH. HOB ELEVATED AT 30 DEG. ENDORSED TO PRIMARY NURSE RAYSA FOR CONTINUITY OF CARE
[2019-03-15 21:45] VITALS: BP 116/43
[2019-03-15 21:52] VITALS: Ht 152.4 cm; Wt 44.0 kg
--- NOTE | 2019-03-16 00:33 | NUR ---
PT RESTING. BREATHING EVEN AND UNLABORED ON RA WITH NO SIGNS OF DISTRESS. CALL BUTTON WITHIN REACH. SAFETY PRECAUTIONS IN PLACE. WILL CONTINUE TO MONITOR.
--- NOTE | 2019-03-16 05:05 | NUR ---
PT SLEPT MOST OF THE NIGHT WITH NO SIGNS OF DISTRESS. IV PATENT, INFUSING WELL. MEDICATED PER EMAR. F/C IN PLACE DRAINING YELLOW URINE. PT TURN AND REPOSITION EVERY 2HRS AND NEEDED. NO ACUTE DISTRESS NOTED. SAFETY PRECAUTIONS IN PLACE. CALL BUTTON WITHIN REACH. WILL CONTINUE TO MONITOR AND ENDORSE CARE TO DAY SHIFT RN.
[2019-03-16 05:16] VITALS: BP 117/50
--- NOTE | 2019-03-16 05:16 | NUR ---
PT REPORTED HAVING ABD PAIN 10/22. MEDICATED PER EMAR. CALL BUTTON WITHIN REACH. SAFETY PRECAUTIONS IN PLACE. WILL MONITOR.
[2019-03-16 06:29] LABS: BASOPHIL % 0.9 % (0-2); PLATELET COUNT 168 x10^3mcL (130-400)
[2019-03-16 06:47] LABS: ALKALINE PHOSPHATASE 64 U/L (46-116); ALT/SGPT 27 U/L (14-59); AST/SGOT 41 U/L (15-37); BILIRUBIN TOTAL 0.3 mg/dL (0.20-1.00); CALCIUM 9.4 mg/dL (8.5-10.1); CARBON DIOXIDE 25.8 mmol/L (21-32); CHLORIDE SERUM 110 mmol/L (98-107); CREATININE SERUM 1.1 mg/dL (0.6-1.0); GLUCOSE SERUM 111 mg/dL (74-106); MAGNESIUM 1.6 mg/dL (1.8-2.4); SODIUM SERUM 143 mmol/L (136-145)
[2019-03-16 06:55] LABS: ALBUMIN 2.1 g/dL (3.4-5.0); TOTAL PROTEIN, SERUM 5.1 g/dL (6.4-8.2)
--- NOTE | 2019-03-16 07:20 | NUR ---
PATIENT LYING IN BED AWAKW AND ALERT IN NO ACUTE DISTRESS CHEST RISE EQUAL AND UNLABORED. LUNGS CTA BILAT. PATIENT DENIES PAIN AT THIS TIME. ABD SOFT AND FLAT ACTIVE BOWEL SOUNDS HEARD IN ALL 4 QUADRANTS. IV ON LH PATENT AND INTACT NO REDNESS OR EDEMA NOTED. ASSESSMENT COMPLETE AND DOCUMENTED. BED IN LOWEST POSITION CALL LIGHT WITHIN REACH. ALL NEEDS ATTENDED TO AT THIS TIME. WILL CONTINUE TO MONITOR.
--- NOTE | 2019-03-16 07:28 | NUR ---
PT AWAKE, NO SIGNS OF DISTRESS NOTED. ENDORSED CARE TO DAY SHIFT RN, ALL QUESTIONS ADDRESSED.
[2019-03-16 08:37] LABS: RED CELL DISTRIBUTION WIDTH 18.4 % (11.5-14.5)
--- NOTE | 2019-03-16 09:31 | NUR ---
ADMINISTERED SCHEDULED MEDS PER MAR PATIENT TOLERATED WELL. NO ADVERSE REACTIONS NOTED . PATIENT DENIES PAIN AT THIS TIME. NO N/V NOTED. ALL NEEDS ATTENDED TO. BED IN LOWEST POSITION SITTER AT BEDSIDE. WILL CONTINUE TO MONITOR.
[2019-03-16 09:54] VITALS: BP 109/45
--- NOTE | 2019-03-16 12:02 | NUR ---
ADMINISTERED MG IV FOR MG 1.6 NO ADVERSE REACTIONS NOTED ALL NEEDS ATTENDED TO AT THIS TIME. IV PATENT AND INTACT. BED IN LOWEST POSITION CALL LIGHT WITHIN REACH. WILL CONTINUE TO MONITOR.
[2019-03-16 13:50] VITALS: BP 110/62
--- NOTE | 2019-03-16 14:05 | NUR ---
PATIENT LYING IN BED WITH EYES CLOSED NO ACUTE DISTRESS NOTED PATIENT BREATHING UNLABORED AND CHEST RISE IS EQUAL. NO S/S OF PAIN NOTED AT THIS TIME. ALL NEEDS ATTENDED TO. BED IN LOWEST POSITION AND CALL LIGHT WITHIN REACH. WILL CONTINUE TO MONITOR.
--- NOTE | 2019-03-16 16:30 | NUR ---
PATIENT LYING IN BED WATCHING TV DENIES ANY PAIN AT THIS TIME. NO S/S OF RESPIRATORY DISTRESS NOTED. ALL NEEDS ATTENDED TO AT THIS TIME. BED IN LOWEST POSITION CALL LIGHT WITHIN REACH. WILL CONTINUE TO MONITOR.
[2019-03-16 18:34] VITALS: BP 153/79
--- NOTE | 2019-03-16 18:34 | NUR ---
PATIENT LYING IN BED WATCHING TV. PATIENT DENIES PAIN OR SOB AT THIS TIME. IV ON LFA PATENT AND IN TACT NO REDNESS OR EDEMA NOTED. CAMPA OUTPUT 400ML YELLOW URINE. TELE MONITOR IN PLACE. ALL NEEDS ATTENDED TO AT THIS TIME. WILL ENDORSE CARE TO DENTAL BILLING SPECIALIST NURSE.
--- NOTE | 2019-03-16 19:39 | NUR ---
RECEIVED SLEEPING WITH NO SIGN OF ACUTE RESPIRATORY DISTRESS. BREATHING EASY AND NONLABOR SATTING AT 97% RA. TELE# 27 SB ON MONITOR, NO INDIATION OF CHEST DISCOMFORT NOTED. IV TO LFA INTACT AND INFUSING WELL. WILL CONTINUE TO MONITOR. SITTER AT BEDSIDE.
[2019-03-16 20:58] VITALS: BP 127/61
--- NOTE | 2019-03-16 21:35 | NUR ---
C/O HEADACHE TYLENOL 650MG PO GIVEN PRESCRIBED. WILL CONTINUE TO MONITOR.
--- NOTE | 2019-03-16 22:33 | NUR ---
NORCO GIVEN REQUESTED BY PATIENT C/O BACKPAIN. WILL CONTINUE TO MONITOR.
--- NOTE | 2019-03-16 23:47 | NUR ---
APPEAR TO BE SLEEPING AT THIS TIME AFTER PAIN MEDS WAS GIVEN. BREATHING EASY AND NONLABOR.
--- NOTE | 2019-03-17 00:54 | NUR ---
PATIENT NO MORE SITTER AT THIS TIME, BED ALARM ON. WILL CONTINUE TO MONITOR.
--- NOTE | 2019-03-17 05:00 | NUR ---
AWAKE MOST OF THE TIME , MEDICATED FOR PAIN X1. HAD BM SOFT IN MODERATE AMOUNT. WOUND TO COCCYX CLEANED AND DRESSING CHANGED. ALL NEEDS ATTENDED.
[2019-03-17 05:25] VITALS: BP 122/43
[2019-03-17 06:36] LABS: BASOPHIL % 1.1 % (0-2); PLATELET COUNT 170 x10^3mcL (130-400)
[2019-03-17 06:49] LABS: RED CELL DISTRIBUTION WIDTH 17.9 % (11.5-14.5)
[2019-03-17 06:52] LABS: CALCIUM 9.7 mg/dL (8.5-10.1); CARBON DIOXIDE 24.5 mmol/L (21-32); CHLORIDE SERUM 105 mmol/L (98-107); CREATININE SERUM 0.9 mg/dL (0.6-1.0); GLUCOSE SERUM 103 mg/dL (74-106); MAGNESIUM 2.9 mg/dL (1.8-2.4); SODIUM SERUM 138 mmol/L (136-145)
--- NOTE | 2019-03-17 07:30 | NUR ---
RECEIVED PATIENT RESTING IN BED, NO ACUTE DISTRESS NOTED. PATIENT DENIES PAIN. DENIES SOB, ON ROOM AIR. PATIENT IS ALERT/ORIENTATED X3, DENIES HEADACHE. TELE MONITOR IN PLACE. PATIENT ON HEPARIN SQ, EDUCATED PATIENT ON RISK FOR BLEEDING. CAMPA CATH DRAINING TO GRAVITY. GENERALIZED WEAKNESS NOTED. 1/2 NS INFUSING TO LFA AT 80ML/HR, IV SITE CDI &PATENT. CALL LIGHT WITHIN REACH, BED IN LOW POSITON. WILL CONTINUE TO MONITOR.
--- NOTE | 2019-03-17 08:45 | NUR ---
PATIENT IS SITTING UP AT BEDSIDE EATING, PATIENT TOLERATING DIET. DR. GEORGE AT BEDSIDE, SPOKE WITH PATIENT EGARDING PLAN OF CARE. DR. GEORGE ORDER FOR CAMPA CATH TO BE DISCONTINUED PATIENT WILL BE PLANNED FOR DISCHARGE TOMORROW. WILL CARRY OUT ORDERS.
[2019-03-17 09:01] VITALS: BP 150/66
--- NOTE | 2019-03-17 13:20 | NUR ---
PATIENT SITTING UP IN BED EATING, PATIENT TOLERATING DIET. NO ACUTE DISTRESS NOTED, WILL CONTINUE TO MONITOR. CALL LIGHT WITHIN REACH.
[2019-03-17 13:22] VITALS: BP 140/56
--- NOTE | 2019-03-17 15:42 | NUR ---
PATIENT WAS C/O HEADACHE 08/22, MEDICATED PATIENT WITH TYLENOL PER PROTOCOL(SEE EMAR). EDUCATED PATIENT ON PAIN MANAGEMENT. ALL NEEDS MET AT THIS TIME, WILL CONTINUE TO MONITOR.
--- NOTE | 2019-03-17 16:00 | NUR ---
PROVIDED PATIENT WITH DRESSING CHANGE TO BUTTOUCKS, NEW OPTIFOAM DRESSING APPLIED. PATIENT REPOSITIONED FOR COMFORT. ALL NEEDS MET AT THIS TIME, WILL CONTINUE TO MONITOR.
[2019-03-17 16:47] VITALS: BP 138/62
--- NOTE | 2019-03-17 19:00 | NUR ---
PATIENT RESTING IN BED COMFORTABLY, NO ACUTE DISTRESS NOTED. NO ACUTE CHANGES NOTED THROUGH OUT SHIFT. ALL NEEDS MET AT THIS TIME. IV SITE TO SALINE LOCK. CALL LIGHT WITHIN REACH, BED IN LOW POSITION. REPORT GIVEN TO NIGHT RN.
--- NOTE | 2019-03-17 19:24 | NUR ---
RECEIVED PATIENT IN BED AWAKE FORGETFUL WITH NO DISTRESS NOTED. PATIENT HAD TYLENOL GIVEN BY AM SHIFT FEW MINUTES AGO AND SHE IS AGAIN ASKING FOR TYLENOL. TELE#27 SB ON MONITOR NO INDICATION FOF CHESTPAIN NOTED. IV TO LFA HEPLOCKED FLUSHED WITH NS. WILL CONTINUE TO MONITOR.
--- NOTE | 2019-03-17 20:40 | NUR ---
C/O BACKAPIN NORCO 1 TAB PO GIVEN PRESCRIBED. WILL CONTINUE TO MONITOR.
[2019-03-17 20:47] VITALS: BP 155/56
--- NOTE | 2019-03-17 21:29 | NUR ---
IV TO LFA LEAKING, REINSERTED NEW IV TO LEFT WRIST INTACT AND INFUSING WELL.
--- NOTE | 2019-03-17 22:53 | NUR ---
PATIENT AGITATED AND ANXIOUS, ATIVAN 1MG PO GIVEN PRESCRIBED. WILL CONTINUE TO MONITOR.
--- NOTE | 2019-03-17 23:54 | NUR ---
APPEAR TO BE SLEEPING THIS TIME BREATHING EASY AND NONLABOR.
--- NOTE | 2019-03-18 04:34 | NUR ---
AWAKE C/O BACKPAIN, NORCO 1 TAB PO GIVEN PRESCRIBED. WILL CONTINUE TO MONITOR.
[2019-03-18 04:55] VITALS: BP 157/70
--- NOTE | 2019-03-18 05:10 | NUR ---
AWAKE MOST OF THE TIME C/O BACKPAIN, MEDCIATED PRESCRIBED. ALL NEEDS ATTENDED. REPOSITIONED FOR COMFORT.
--- NOTE | 2019-03-18 05:51 | NUR ---
HAD BM X1 SOFT IN MODERATE AMOUNT, DRESSING CHANGED ON WOUND AT THE BACK.
--- NOTE | 2019-03-18 07:27 | NUR ---
RECEIVED HAND OFF REPORT FROM NIGHT NURSE. PATIENT AWAKE AND ALERT AT THIS TIME. NOT COMPLAINING OF PAIN. NIGHT NURSE REPORTED THAT PATIENT DID NOT SLEEP WELL BUT PAIN WAS CONTROLLED. CAMPA NO LONGER PRESENT AND POST VOID OCCURED WITH NO PAIN OR BURNING. PLAN IS REPORTED FOR DISHCARGE TODAY. CALL LIGHT WITHIN REACH, WILL CONTINUE TO MONITOR
[2019-03-18] MEDS ORDERED: LEVOFLOXACIN500 M1 PO (08:42)
--- NOTE | 2019-03-18 08:45 | NUR ---
DR GEORGE ROUNDED ON PATIENT, DISHCARGE ORDERS ENTERED IN. CALLED AND SPOKE WITH TO UPDATE ON DISHCARGE. STATED THAT SOMEONE WILL COME AT 11-1130 TO TRANSPORT PATIENT HOME. STATED THAT [facility] ALREADY HAS HOME HEALTH SET UP AND WILL RESTART HOME HEALTH WHEN PATIENT IS BACK HOME.
[2019-03-18 09:06] VITALS: BP 158/55
--- NOTE | 2019-03-18 10:48 | NUR ---
CASE MANAGEMENT AT BEDSIDE ENCOURAGING PATIENT TO BE DISCHARGED TO DAUGHTERS HOME. DAUGHTER IS WILLING TO CARE FOR PATIENT. PATIENT IS ALERT AND ORRIENTED AND REFUSING DISHCARGE TO DAUGHTERS HOME. INSISTING TO GO TO HOME WITH
--- NOTE | 2019-03-18 11:44 | NUR ---
JESU, CALLED AND STATED THAT A FMAILY FRIEND, ANDREA WILL BE COMING TO PICK PATIENT UP AT 1230. PATIENT AWARE AND AGGREABLE. I SPOKE WITH JOANNE GIBBS AND KWAKU IN CASE MAANGEMENT AND SINCE PATIENT WAS REFUSING TO BE DISCHAGED TO DAUGHTER'S HOUSE PATIENT MAY CHOOSE TO BE DISHCARGED BACK TO HOME, MYSELF AND MOMO (CASE MANAGEMENT) COUNCILED PATIENT OF POTENTIONS RISKS OF BEING DISHCARGED HOME, SAFETY, LEVEL OF CARE. PATIENT STILL REFUSING AND IS ALERT AND ORIENTED
[2019-03-18 12:00] VITALS: BP 156/76
--- NOTE | 2019-03-18 14:23 | NUR ---
PATIENT DISHCARGE IN CHART AND PATIENT READY FOR DISCHARGE. REVIEWED DISCHARGE INSTRUCTION WITH PATIENT AND WITH FAMILY FRIEND THAT CAME TO TRANSPORT PATIENT, ANDREA. PATIENT AWARE OF PRESCRIPTIONS AND HOME HEALTH CARE. REMOVED IV FROM RIGHT WRIST, CATH INTACT, AND BLEEDING CONTROLED. TELE 27 REMOEVD FROM [facility] AND TAKEN TO [facility] IN MONITOR STATION. PATIENT WAS DRESSED AND ASSISTED OFF UNIT BY DAYA WITH ALL BELONGINGS
== END 2019-03-18 14:10 | disposition home health service (06) | DRG 690 ==
LOC: ED 15:24 → MU 19:29 → DU 19:29 → MU 20:29 → DU 21:34
PROVIDERS: Emergency Medicine; Internal Medicine; ADMIT Internal Medicine Pulmonary Disease
DX: N39.0 Urinary tract infection, site not specified (principal); E44.0 Moderate protein-calorie malnutrition; G35 Multiple sclerosis; E83.42 Hypomagnesemia; K59.00 Constipation, unspecified; I10 Essential (primary) hypertension; R00.1 Bradycardia, unspecified; Z86.73 Personal history of transient ischemic attack (TIA), and cerebral infarction without residual deficits
CPT/HCPCS: G0378; J0692; J0696; J0713; J1644; J1885; J2405; J3475; J7030; J7060; J7120

== ENCOUNTER 2019-03-28 04:08 | Inpatient (IN) | payer OTHER ==
[~2019-03-28] VITALS: Ht 160 cm; Wt 45.1 kg
[~2019-03-28 04:08] MED LIST changes: +LEVOFLOXACIN500 M1 PO
--- NOTE | 2019-03-28 04:23 | NUR ---
PT BIB [facility] FOR C/O GEN WEAKNESS. PER MEDICS PT HAS HX OF MS AND NORMALLY HAS EPISODES OF GEN WEAKNESS. PER MEDICS PT BG WAS 131 ON SCENE. MEDICS REPORT PT HAS GCS OF 14, PT IS CONFUSED BUT STATE THAT PT IS AT BASELINE.
[2019-03-28 05:24] LABS: BASOPHIL % 0.5 % (0-2); PLATELET COUNT 197 x10^3mcL (130-400); RED CELL DISTRIBUTION WIDTH 19.6 % (11.5-14.5)
--- NOTE | 2019-03-28 05:30 | NUR ---
PATIENT SEEN BY . MULTIPLE EFFORT WAS MADE TO INSERT SALINE LOCK.
[2019-03-28 05:34] LABS: T3 TOTAL 0.56 ng/mL
[2019-03-28 05:42] LABS: CALCIUM 10.2 mg/dL (8.5-10.1); CARBON DIOXIDE 22.7 mmol/L (21-32); CHLORIDE SERUM 109 mmol/L (98-107); CREATININE SERUM 0.9 mg/dL (0.6-1.0); GLUCOSE SERUM 134 mg/dL (74-106); POTASSIUM SERUM 3.3 mmol/L (3.5-5.1); SODIUM SERUM 144 mmol/L (136-145)
[2019-03-28 05:46] LABS: ALKALINE PHOSPHATASE 74 U/L (46-116); ALT/SGPT 28 U/L (14-59); AST/SGOT 39 U/L (15-37); BILIRUBIN TOTAL 0.53 mg/dL (0.20-1.00); CHOLESTEROL 137 mg/dL (<200); LIPASE 66 IU/L (73-393); TRIGLYCERIDES 120 mg/dL (<150)
[2019-03-28 05:51] LABS: ALBUMIN 2.8 g/dL (3.4-5.0); CHOLESTEROL/HDL RATIO 6.9; HDL CHOLESTEROL 20 mg/dL (40-60)
[2019-03-28 05:58] LABS: UA SPECIFIC GRAVITY 1.025 (1.005-1.035); microscopic required? YES; urine erythrocyte 3+ (NEGATIVE)
--- NOTE | 2019-03-28 06:10 | NUR ---
SALINE LOCK INSERTED X2 . STILL WAIITNG FOR BLOOD CULTURE DRAW TO START ANTIBIOTIC.
[2019-03-28 06:29] LABS: FREE T4 1.49 ng/dL (0.76-1.46)
[2019-03-28 06:30] LABS: FREE THYROXINE INDEX 3.9 ug/dL (1.4-4.5)
--- NOTE | 2019-03-28 06:35 | NUR ---
CAMPA CATH INSERTED. ANTIBIOTIC IS INFUSING. PATIENT REMAINS DROWSY, AWOUSE EASILY ANSWERS SOME QUESTIONS APPROPIATELY, BUT GOES BACK TO SLEEP AFTER ANSWERING. PATIENT IS WAITING FOR A BED.
--- NOTE | 2019-03-28 07:35 | NUR ---
RECEIVED REPORT FROM JOS DENNISON PT. BROUGHT IN FOR GENERALIZED WEAKNESS. PT RESTING IN BED WITH EYES CLOSED, RESPIRATIONS EVEN AND UNLABORED. SKIN PALE, WARM/DRY/INTACT WITH SOME BRUISING NOTED (SEE ASSESSMENT). PATIENT AAOX 2 (NAME AND PLACE). DENIES C/O PAIN. NAD NOTED. VSS. WILL CONTINUE TO MONTIOR. JOS DENNISON CALLING REPORT
--- NOTE | 2019-03-28 07:43 | NUR ---
REPORT WAS GIVEN TO JONES. PATIENT WILL BE TRANSPORTED TO ROOM 251 A.
--- NOTE | 2019-03-28 08:12 | NUR ---
RECEIVED A PT FROM ER AWAKE, ALERT BUT FORGETFUL AT TIMES.NO RESP. DISTRESS NOTED. NO C/O PAIN OR DISCOMFORT. PT CAME IN WITH GEN. WEAKNESS AND BURNING URINATION.. ASSISTED TO BED , ORIENTED TO ROOM AND CALL LIGHT WITHIN REACH. VS WNL. IVF INFUSING WELL AND SITE CLEAR. WILL CONTINUE WITH PLAN OF CARE.
[2019-03-28 09:44] LABS: TOTAL IRON BINDING CAPACITY 285 ug/dL (250-450)
[2019-03-28 09:48] VITALS: BP 130/68
[2019-03-28 09:55] LABS: IRON 23 ug/dL (50-170)
--- NOTE | 2019-03-28 11:09 | NUR ---
UNABLE TO OBTAIN CONSENTB FOR BLOOD TRANSFUSION AT THIS TIME. PT FORGETFUL WITH HX OF DEMENTIA. PT STATED MALINID SIGNS HER CONSENTS BUT CURRENTLY IN HOSPITAL. WILL NOTIFY DR. HAGEN.
--- NOTE | 2019-03-28 11:30 | NUR ---
SKIN TO SACRAL AREA AND LT BUTTOCK NOTED WITH SMALL OPEN SORE AND SKIN IRRITATION, PT STATED SHE GOT IT FROM [facility] AND SHE DID NOT HAVE ANYONE TO HELP HER CHANGE. PT STATED HER WHO ASSIST HER WITH CARE IS ADMITTED IN THE HOSPITAL. SITE CLEANED WITH NS, ZGUAD APPLIED TO AREA WITH DERMATITIS AND OPTIFOAM TO SACRAL AREA. SEE PHOTOS.PT ENCOURAGED TO TURN AND REPOSITION BOBBY.
[2019-03-28 11:34] VITALS: BP 102/31
--- NOTE | 2019-03-28 11:39 | NUR ---
DR. HAGEN NOTIFY OF THE NEED FOR CONSENT, STATED DR. ROBLES WILL BE IN TO EXPLAIN TO PT/FAMILY ABOUT CONSENT FOR BLOOD TRANSFUSION. WAITING FOR DR. ROBLES. PT IN NO ACUTE DISTRESS, CONFUSED AT TIMES. SIDE RAILS UP AND CALL LIGHT WITHIN REACH.
--- NOTE | 2019-03-28 15:47 | NUR ---
BLOOD TRANSFUSION INITIATED. PT TOLERATING WELL. NO ACTIVE REACTION NOTED.VS WNL.
[2019-03-28 15:48] VITALS: BP 123/64
[2019-03-28 18:37] VITALS: BP 125/63
--- NOTE | 2019-03-28 18:43 | NUR ---
BLOOD TRANSFUSION COMPLETED. PT TOLERATED WELL. NO ACTIVE REACTION NOTED. VS STABLE. NO RESP. DISTRESS.
[2019-03-28 21:00] VITALS: BP 133/58
--- NOTE | 2019-03-28 21:37 | NUR ---
MEDICATED PT FOR GENERALIZED BODY ACHE 11/22.
--- NOTE | 2019-03-29 04:54 | NUR ---
PT'S VERY CONGESTED SOB NOTED, NO RESP DISTRESS NOTED HR 160"S NOTED PT'S URINE OUTPUT IS LOW 100ML DARK PAULINO URINE DR TAPIA AWARE ORDERED LASIX 40MG IVP X1 . TO F/U WITH AM .
[2019-03-29 04:59] VITALS: BP 143/64
--- NOTE | 2019-03-29 05:07 | NUR ---
LASIX 40MG IVP GIVEN V/S 143/64 HR 134.
--- NOTE | 2019-03-29 06:01 | NUR ---
MEDICATED PT WITH NORCO 10/325MG PO FOR GENERALIZED PAIN .PT DID NOT SLEEP ALL NIGHT YELLING FOR ASSIST/HELP EVEN AFTER BEEN HELPED WITH THE CARE . TURNED PT Q2HRS FOR COMOFORT , NO BM NOTED, CAMPA TO GRAVITY DRAINING CLOUDY URINE , PIV INTACT INFUSING WELL .
[2019-03-29 06:25] LABS: BASOPHIL % 0.3 % (0-2); PLATELET COUNT 197 x10^3mcL (130-400)
[2019-03-29 06:45] LABS: CALCIUM 9.6 mg/dL (8.5-10.1); CARBON DIOXIDE 20.4 mmol/L (21-32); CHLORIDE SERUM 109 mmol/L (98-107); GLUCOSE SERUM 220 mg/dL (74-106); SODIUM SERUM 142 mmol/L (136-145)
[2019-03-29 07:04] LABS: RED CELL DISTRIBUTION WIDTH 19.5 % (11.5-14.5)
--- NOTE | 2019-03-29 07:20 | NUR ---
RECEIVED AWAKE AND ALERT. FOLLOWS SIMPLE COMMANDS. NO ACUTE RESP. DISTRESS NOTED. NO C/O PAIN AT THIS TIME. CALL LIGHT WITHIN REACH. WILL CONTINUE WITH PLAN OF CARE.
--- NOTE | 2019-03-29 07:42 | NUR ---
DR. HAGEN MADE AWARE OF ELEVETED TROP. 1.190. STATED TO ALSO NOTIFY DR. ROBLES. DR. ROBLES PAGED. WAITING FOR CALL BACK.
[2019-03-29 07:55] VITALS: BP 130/55
--- NOTE | 2019-03-29 11:54 | NUR ---
ECHOCARDIOGRAM PENDIG-DONE 03/07/19-COPY IN CHART
--- NOTE | 2019-03-29 12:10 | NUR ---
PT YELLING AND CALLING FOR HELP. STATED HER BACK ACHE. MEDICATED WITH NORCO PER ORDER.
[2019-03-29 12:11] VITALS: BP 136/76
--- NOTE | 2019-03-29 13:36 | NUR ---
DOSING ON AND OFF, NO ACUTE DISTRESS NOTED. LASIX GIVEN PER ORDER. CALL LIGHT WITHIN REACH.
[2019-03-29 16:10] VITALS: BP 127/58
--- NOTE | 2019-03-29 18:08 | NUR ---
CONSENT FOR EGD AND COLONOSCOPY SIGNED BY PT'S .
[2019-03-29 18:27] VITALS: BP 147/79
--- NOTE | 2019-03-29 18:36 | NUR ---
O2 SATS 91% ON RA. PT STATED SHE FEELS PRESSURE ON HER CHEST. VS STABLE. NO CHANGES TO TELE MONITOR. PLACED ON O2 2L N/C AND O2 SATS IMPROVED TO 96%. PT STATED FEELING BETTER WITH O2. REPOSITIONED IN BED FOR COMFORT. HOB ELEVETED. CALL LIGHT WITHIN REACH. WILL BE ENDORSED TO INCOMING SHIFT.
--- NOTE | 2019-03-29 19:03 | NUR ---
PT RESTING AT THIS TIME, NO C/O PAIN OR DISCOMFORT.CALL LIGHT WITHIN REACH. WILL BE ENDORSED TO INCOMING SHIFT.
[2019-03-29 19:51] VITALS: BP 136/72
--- NOTE | 2019-03-29 22:17 | NUR ---
RECEIVED PT IN BED AT 1945 AAOX3 NO ACUTE DISTRESS NOTED , PT DENY SOB AT THE MOMENT , ON 2L N/C SAT 98% , TELE NUMBER [address] HR 102, PIV INTACT INFUSING WELL , SKIN DRY WARM TO TOUCH MULTIPLE ECCHYMOSIS NOTED BILAT UPPER EXTR , DERMATITIS TO BUTTOCKS NOTED OPTIFOAM INPLACE , WILL TURN PT Q2HRS .
--- NOTE | 2019-03-30 01:02 | NUR ---
IN BED WITH EYES CLOSED , TELE NSR ,PIV INTACT INFUSING WELL .
--- NOTE | 2019-03-30 04:40 | NUR ---
PT REFUSED TO BE TURNED , PREFER TO BE ON HER BACK DUE TO SOB , OFF LOADED PT AT THE MOMENT , PLACED PT ON AIR MATTRESS .
[2019-03-30 05:02] VITALS: BP 140/64
--- NOTE | 2019-03-30 05:53 | NUR ---
PT'S YELLING ON AND OFF EVEN AFTER ASSISTED WITH CARE AND ADLS. MEDICATED PT ORDERED NO ADVERSE REACTION NOTED, PIV INTACT INFUSING WELL .
--- NOTE | 2019-03-30 06:18 | NUR ---
I HAVE REVIEWED THE DATA COLLECTION BY ROSA ISELA (NAME):NOEMI RIVERA ENTERED ON (DATE/TIME):03/29 I CONCUR WITH THE DATA AND ANY EXCEPTIONS OR COMMENTS ARE LISTED BELOW:
--- NOTE | 2019-03-30 06:41 | NUR ---
PT CON'T TO HAVE LOOSE STOOL NOT CLEAR FOR COLONOSCOPY WILL NOTIFY MD . MEDS GIVEN NO REACTION NOTED, PIV INTAVT INFUSING WELL .
[2019-03-30 07:05] LABS: BASOPHIL % 0.2 % (0-2); PLATELET COUNT 193 x10^3mcL (130-400)
--- NOTE | 2019-03-30 07:25 | NUR ---
RECEIVED PATIENT. IN BED, AWAKE TALKING WITH VIA PHONE. NO ACUTE RESP DISTRESS NOTED. REMAINS ON 2L NC. NO C/O PAIN AT THIS TIME. NO BLEEDING NOTED. ECCHYMOSIS NOTED TO BILATERAL UPPER ARMS. IV INTACT AND PATENT TO RIGHT HAND 22G. PER CHAIN OFFBEARER NURSE, PATIENT HAS BEEN LIQUID BROWN STOOL BUT NOT CLEAR YET. WILL CONTINUE TO MONITOR FOR STOOL CONSISTENCY. SAFETY PRECAUTION IN PLACE. HOB ELEVATED. CALL LIGHT WITHIN REACH. WILL CONTINUE TO MONITOR.
[2019-03-30 07:30] LABS: RED CELL DISTRIBUTION WIDTH 18.8 % (11.5-14.5)
--- NOTE | 2019-03-30 08:13 | NUR ---
SPOKE WITH KARIS FROM GI LAB REGARDING PLAN FOR EGD AND COLONOSCOPY. PER KARIS, SHE SPOKE WITH DR. ACEVEDO AND HE ORDERED TO REASSESS PATIENT IN 6 HOURS. PER KARIS, SHE WILL CALL DR. ACEVEDO IN 6 HOURS TO DETERMINE PLAN TO PROCEED. WILL CONTINUE TO MONITOR.
[2019-03-30 08:54] VITALS: BP 157/73
--- NOTE | 2019-03-30 09:15 | NUR ---
PATIENT IN BED, SLEEPING. EASILY AROUSABLE. NO C/O PAIN AT THIS TIME. NO ACUTE RESP DISTRESS NOTED. REMAINS ON 2L NC. IV INTACT AND PATENT. NO INFILTRATION NOTED. SAFETY PRECAUTION IN PLACE. HOB ELEVATED. CALL LIGHT WITHIN REACH. WILL CONTINUE TO MONITOR.
[2019-03-30 09:19] LABS: ALKALINE PHOSPHATASE 83 U/L (46-116); ALT/SGPT 28 U/L (14-59); AST/SGOT 37 U/L (15-37); BILIRUBIN DIRECT 0.18 mg/dL (0.0-0.2); BILIRUBIN TOTAL 0.37 mg/dL (0.20-1.00); CARBON DIOXIDE 16.4 mmol/L (21-32); CHLORIDE SERUM 109 mmol/L (98-107); CREATININE SERUM 0.9 mg/dL (0.6-1.0); GLUCOSE SERUM 152 mg/dL (74-106); POTASSIUM SERUM 3.7 mmol/L (3.5-5.1); SODIUM SERUM 141 mmol/L (136-145)
[2019-03-30 09:35] LABS: ALBUMIN 2.3 g/dL (3.4-5.0)
--- NOTE | 2019-03-30 12:23 | NUR ---
PATIENT IN BED, HAD BOWEL INCONTINENCE. HELPED COMMISSIONS SPECIALIST WITH PERICARE. APPLIED NEW OPTIFOAM, AND ZGUARD TO REDNESS AROUND PERINEAL AREA. PATIENT TOLERATED ACTIVITY WELL. NO SOB NOTED. STOOL CONSISTENCY NOTED TO BE CLEAR YELLOW/BROWN LIQUID AT THIS TIME. IV PATENT AND INTACT. NO INFILTRATION NOTED. NO ACUTE DISTRESS NOTED. SAFETY PRECAUTION IN PLACE. CALL LIGHT WITHIN REACH. WILL CONTINUE TO MONITOR.
[2019-03-30 12:54] VITALS: BP 144/71
--- NOTE | 2019-03-30 15:10 | NUR ---
PATIENT IN BED, SLEEPING. NO ACUTE RESP DISTRESS NOTED. REMAINS ON 2L NC. NO C/O PAIN AT THIS TIME. IV INTACT AND PATENT. NO INFILTRATION NOTED. SAFETY PRECAUTION IN PLACE. HOB ELEVATED. CALL LIGHT WITHIN REACH. WILL CONTINUE TO MONITOR.
[2019-03-30 16:05] VITALS: BP 153/65
--- NOTE | 2019-03-30 16:38 | NUR ---
SPOKE WITH DR. HAGEN REGARDING PATIENT WBC LEVEL 12.3. NO NEW ORDERS AT THIS TIME. WILL CONTINUE TO MONITOR.
--- NOTE | 2019-03-30 18:16 | NUR ---
SPOKE TO PATIENT , UJAN M LAW REGARDING ALLOWING SON, ULCIANO ROJAS BE INFORMED OF PLAN OF CARE OF PATIENT. PER JUAN M, , IT IS OK TO LET LUCIANO KNOW ABOUT EVERYTHING THAT IS GOING ON WITH PATIENT. WILL ENDORSE TO EMR SPECIALIST NURSE. PATIENT IS STABLE AT THIS TIME, NO ACUTE RESPIRATORY DISTRESS NOTED. NO C/O PAIN. REMAINS ON 2L NC. NO SOB NOTED. SAFETY PRECAUTION IN PLACE. CALL LIGHT WITHIN REACH. WILL CONTINUE TO MONITOR.
--- NOTE | 2019-03-30 18:31 | NUR ---
SPOKE TO DR. ACEVEDO REGARDING PATIENT STOOL CONSISTENCY CLEAR BROWN WITH SMALL SOFT CLUMPS OF BROWN STOOL. PER DR. ACEVEDO, WILL PROCEED WITH COLONOSCOPY TOMORROW. WILL ENDORSE TO CONTRIBUTION SOLICITOR NURSE.
--- NOTE | 2019-03-30 20:34 | NUR ---
PT CURRENTLY RESTING IN BED, NO ACUTE DISTRESS. A/O X3, FORGETFUL AT TIMES. TELE #8 SHOWING SINUS RHYTHM, DENIES CHEST PAIN. PULSES PALPABLE IN ALL EXTREMITIES, NO EDEMA NOTED. LUNG SOUNDS DIMINISHED BILATERALLY WITH EXPIRATORY WHEEZE, DENIES SOB. O2 VIA NC AT 2L. BOWEL SOUNDS ACTIVE, LAST BM 03/30/19, WATERY STOOLS DUE TO MEDICATION. CAMPA CATHETER IN PLACE, DARK YELLOW URINE NOTED. GENERALIZED WEAKNESS. BUE ECCHYMOSIS EXERCISE MANAGER. WOUND TO COCCYX, OPTIFOAM DRESING CDI. IV PATENT AND INTACT. BED IN LOWEST POSITION, SIDE RAILS UP X2, CALL LIGHT WITHIN REACH. WILL CONTINUE TO MONITOR.
[2019-03-30 21:01] VITALS: BP 166/81
[2019-03-31] VITALS (7 sets, daily range): BP systolic 113–160; BP diastolic 53–77
--- NOTE | 2019-03-31 00:48 | NUR ---
PT CURRENTLY RESTING IN BED, NO ACUTE DISTRESS. WILL CONTINUE TO MONITOR.
--- NOTE | 2019-03-31 07:00 | NUR ---
RECEIVED REPORT FROM SULEMA RN AT BED, PT RESTING IN BED IN NO ACUTE DISTRESS
--- NOTE | 2019-03-31 07:42 | NUR ---
PT RESTING IN BED, AXOX3, CONFUSED AT TIME, ABLE TO MAKE NEEDS KNOWN, VERBAL, CALM AND COOPERATIVE AT THIS TIME, NO FACIAL DROOP/SLURRED SPEECH, PERRLA, NO REDNESS/DRAINAGE EENT, DENIED GUERRERO/DIZZINESS/PAIN, NPO SINCE MIDNIGHT, RESP EVEN, NO COUGH/SOB AT THIS TIME, 2L/MIN, NC, 96%, DIM BLL, EXP. WHEEZING, RT PROTOCOL, CHEST RISE SYMMETRICALLY, TELE #8, SR, HR-76 AT THIS TIME, DENIED CP/PALPITATION, AND FLAT AND NON-TENDER TO TOUCH, BS ACTIVE X 4, LAST BM THIS AM, CLEAR, LIQUID, DR ACEVEDO MADE AWARE, GENERALIZED WEAKNESS, BEDREST, SEE SKIN ASSESSMENT, LALM, SCDs, SKIN C/D/W, PALP PULSES, CAP REFILL < 2S, NO EDEMA, FC PATENT AND DRAINED WELL, IV PATENT AND FLUSHING WELL, DRESSING CDI, ALL NEEDS ADDRESSED AT THIS TIME, STANDARD PRECAUTION, SAFETY PROTOCOL FOLLOWED, CONTINUE TO MONITOR
--- NOTE | 2019-03-31 07:54 | NUR ---
REPORT GIVEN TO GI RESOURCE TECHNICIAN, UNABLE TO CONFIRM TIME FOR EGD/COLONOSCOPY AT THIS TIME, CHARGE NURSE MADE AWARE, PT AND MADE AWARE
--- NOTE | 2019-03-31 08:10 | NUR ---
AM MEDs GIVEN PER MD ORDER VIA EMAR, TOLERATED WELL, NO ASE NOTED AT THIS TIME, EDUCATED PT R/T MEDs, ASE AND MONITOR, VERBALLY UNDERSTANDING, CONTINUE TO MONITOR
--- NOTE | 2019-03-31 08:16 | NUR ---
PT P/U FOR EGD/COLONOSCOPY BY JENNIFER ARGUELLO VIA BED, PT RESTING IN BED IN NO ACUTE DISTRESS, PT MADE AWARE, CHARGE NURSE YOLY MADE AWARE
--- NOTE | 2019-03-31 08:25 | NUR ---
CALLED AND GOT UPDATED W/ PT CURENT STATUS AND LOCATION, NO FURTHER CONCERN NEEDED WHEN ASKED, CONTINUE TO MONITOR WHEN PT BACK TO FLOOR
--- NOTE | 2019-03-31 10:11 | NUR ---
PT BACK FROM EGD/COLONOSCOPY EXAM, PT IN NO ACUTE DISTRESS, VERBAL, ABLE TO MAKE NEEDS KNOWN, RESP E/U, IV PATENT AND INFUSING WELL, V/S: 98.1, 138/76, 76, 97%, 2L/MIN, NC, 16, 0/10
--- NOTE | 2019-03-31 10:15 | NUR ---
PT RESUMED REG DIET PER DR ACEVEDO, PT MADE AWARE, CHARGE NURSE YOLY MADE AWARE, PT RESTING IN BED IN NO ACUTE DISTRESS
--- NOTE | 2019-03-31 12:29 | NUR ---
CALLED AND GOT UPDATED W/ PT CURRENT CONDITION, TALKED TO PT ON PHONE, PT IN NO ACUTE DISTRESS, RESTING IN BED, RESP E/U, SAFETY PROTOCOL MAINTAINED, CONTINUE TO MONITOR
[2019-03-31] MEDS ORDERED: CIPRO500 MG PO (13:35)
--- NOTE | 2019-03-31 14:24 | NUR ---
PT AND SON AT BEDSIDE MADE AWARE OF DC ORDER, PT REPORTED SOB, PT REPOSITION TO COMFORT SITTING LEVEL, O2 SAT NOTED 98-99% AT 2L/MIN, NC, RR-18, DIM BLL, RESP E/U, DR ROBLES RESPIRATORY SPECIALIST MADE AWARE, NEW ORDER OBTAINED, MED GIVEN PT PT, TOLERATED WELL, EDUCATED PT R/T MEDs, ASE AND MONITOR, PT IN NO ACUTE DISTRESS AT THIS TIME, CHARGE NURSE YOLY MADE AWARE, CONTINUE TO MONITOR
--- NOTE | 2019-03-31 15:10 | NUR ---
PT AND SON AT BEDSIDE REPORTED TO APPEAL DC ORDER, PER DIEM INTERPRETER MADE AWARE, CHARGE NURSE YOLY MADE AWARE
--- NOTE | 2019-03-31 16:09 | NUR ---
DR XIAO CEBALLOS R/T PT AND FAMILY APPEAL DC DECISION, AWAITING FOR CALLING BACK, CHARGE NURSE YOLY MADE AWARE
--- NOTE | 2019-03-31 17:12 | NUR ---
PT RESTING IN BED, FAMILY AT BEDSIDE, IN NO ACUTE DISTRESS, RESP E/U, 2L/MIN, NC, NO COUGH/SOB NOTED, TELE #8, DENIED CP/PALPITATION, DENIED PAIN/GUERRERO/ DIZZINESS, IV PATENT AND FLUSHING WELL, DRESING CDI, FC PATENT AND DRAINED WELL, ALL NEEDS ADDRESSED AT THIS TIME, SAFETY PROTOCOL MAINTAINED, COMFORT MEASUREMENT PROVIDED, WILL ENDORSE TO ONCOMING RN
--- NOTE | 2019-03-31 17:57 | NUR ---
PT REQUESTED SLEEPING PILL FOR TONIGHT BEFORE BEDTIME, SAID TAKE IT EVERY NIGHT AT HOME BUT NOT SURE WHAT TYPE AND DOSE, DR HAGEN PAGED, AWAITING FOR CALL BACK, CHARGE NURSE YOLY AND PT MADE AWARE
--- NOTE | 2019-03-31 19:10 | NUR ---
REC'D PT FROM DAY NURSE. PT RESTING IN BED. AT BEDSIDE. PT AAOX3. REORIENTED TO MONTH. FOLLOWS COMMANDS. SPEECH CLEAR. C/O MOUTH SORENESS. TOP AND BOTTOM DENTURES IN PLACE. SOME RED SPOTS NOTED ON SIDES OF TONGUE- WILL GIVE PT WARM SALT WATER RINSE. TELE 8. DENIES CP, DIZZINESS, OR PALPITATIONS. REPORTS MILD SOB. BREATHING EVEN/UNLABORED ON 2L O2 VIA NC. NO EDEMA NOTED. ABD SOFT/ROUND. DENIES ABD PAIN, TENDERNESS, OR N/V. CAMPA DRAINING LIGHT YELLOW URINE TO GRAVITY. GEN WEAKNESS. ABLE TO MOVE EXTREMITIES. AIR MATTRESS IN PLACE. OPTIFOAM TO BUTTOCKS. BUE ECCHYMOSIS. REPOSITIONS SELF. IV TO RH FLUSHED AND PATENT, SITE WNL. CALL LIGHT WITHIN REACH, BED AT LOWEST POSITION. WILL CONTINUE TO MONITOR.
--- NOTE | 2019-03-31 20:05 | NUR ---
PT C/O SOB. SPO2 97% ON 2L NC. HOB ELEVATED. RHONCHI BILATERALLY. SPEAKING IN COMPLETE SENTENCES. RESP UNLABORED. PT ALSO C/O ITCHINESS TO BACK. TUBER MACHINE CUTTER PHYSICAN FROM [facility] PAGED. WILL REQUEST BREATHING TREATMENTS AND BENADRYL.
--- NOTE | 2019-03-31 20:15 | NUR ---
REC'D CALL BACK FROM DR. HAGEN. WILL ENTER ORDERS.
--- NOTE | 2019-03-31 20:21 | NUR ---
RT NOTIFIED PT HAVING SOB. RT TO ASSESS THE PT.
--- NOTE | 2019-03-31 21:33 | NUR ---
PT REPORTS FEELING BETTER S/P BREATHING TREATMENT. CURRENTLY DENIES SOB. SPO2 98% ON 2L. ATARAX GIVEN FOR ITCHINESS. PT PROVIDED WITH WARM SALINE RINSE FOR MOUTH SORENESS.
--- NOTE | 2019-04-01 01:54 | NUR ---
REC'D CALL FROM TELE PT WENT INTO A FIB WITH RVR. HR HIGH 190'S. PT WENT INTO A FIB FOR A MIN, BACK TO NSR FOR 2 MIN, BACK TO A FIB FOR ANOTHER MIN, AND NOW NSR WITH PAC'S. HR CURRENTLY IN THE 80'S. PT RESTING IN BED WATCHING TV. DOES NOT APPEAR TO BE IN DISTRESS. BP 133/60, MAP 77, HR 82, RR 18. PT SPEAKING IN COMPLETE SENTENCES AND REQUESTING A SLEEP AID. REPORTS SOME SOB, SPO2 100% ON RA. ALSO REPORTS L SIDED CHEST PRESSURE-LIKE PAIN /. DENIES ANY PALPITATIONS, NUMBING, OR TINGLING. DR. HAGEN PAGED.
--- NOTE | 2019-04-01 02:35 | NUR ---
REC'D CALL BACK FROM DR. HAGEN. MADE AWARE OF SUSTAINED AFIB WITH HR HIGH 190'S. SUSTAINED FOR ABOUT 4 MIN NOW. PT C/O SOME PALPITATIONS AND CHEST PAIN. RECEIVED ORDERS FOR CARDIZEM 10 MG IVP Q2H PRN FOR HR > 130, MORPHINE 2 MG IVP Q4 PRN FOR PAIN, AND AMBIEN 5 MG PO HSP. INSTRUCTED TO CALL AFTER 2 HOURS IF PT STILL IN A FIB WITH RVR. CARDIZEM GIVEN PER ORDER.
--- NOTE | 2019-04-01 02:48 | NUR ---
PT COVERED BACK TO NSR. TELE CURRENTLY READING NSR WITH PVC'S AND PAC'S. HR 80. PT STILL C/O L SIDED 8/10 CHEST PRESSURE. MORPHINE GIVEN PER ORDER. WILL MONITOR FOR RELIEF.
--- NOTE | 2019-04-01 03:50 | NUR ---
PT AWAKE AND RESTING IN BED. TELE READING AFIB NOW. HR FLUCTUATING FROM 118-140'S. DENIES ANY CP OR PRESSURE AT THIS TIME. C/O GUERRERO. TYLENOL GIVEN PER ORDER. PT ALSO REQUESTING SLEEP AID BUT UNABLE TO GIVE D/T TIME. CALL LIGHT WITHIN REACH, BED AT LOWEST POSITION, BED ALARM ON. WILL CONTINUE TO MONITOR.
--- NOTE | 2019-04-01 04:46 | NUR ---
TELE STILL READING AFIB WITH HR >130. ANOTHER DOSE OF CARDIZEM 10 MG IVP GIVEN. PT DENIES ANY CP AT THIS TIME. AUDIBLE MILD EXP WHEEZE. RT NOTIFIED TO GIVE A BREATHING TREATMENT.
[2019-04-01 05:40] VITALS: BP 109/58
--- NOTE | 2019-04-01 05:52 | NUR ---
PAGEVictor Manuel HAGEN AND REC'D CALL BACK. INFORMED PT IS STILL HAVING AFIB WITH RVR. CURRENT HR 143. DENIES CP CURRENTLY. REC'D ORDER FOR DIGOXIN 0.25 MG IVP ONE TIME NOW AND TO PAGE DR. ROBLES. DR. TRAVIS CEBALLOS.
--- NOTE | 2019-04-01 06:10 | NUR ---
REC'D CALL BACK FROM DR. ROBLES. REC'D ORDERS FOR DIGOXIN 0.25 MG IV Q6 X4 DOSES NOW, CARDIZEM 60 MG PO NOW THEN CARDIZEM 30 MG PO Q6, 1 AMP CALCIUM GLUCONATE IV NOW, 2 G MAGNESIUM SULFATE IV NOW, AND D/C HYDROCHLOROTHIAZIDE.
--- NOTE | 2019-04-01 07:10 | NUR ---
RECEIVED PT FROM APPLICATION SECURITY ARCHITECT NURSE. PT IN BED SLEEPING, AROUSABLE, RESP E/U ON 2L NC. NO SIGNS OF ACUTE DISTRESS NOTED. ON TELE 8 SHOWING A-FIB, HR: 120, ORDERS PENDING FOR MAG SULFATE AND CALCIUM GLUCONATE AT THIS TIME. IV TO RH, SALINE LOCKED W/ NO ERYTHEMA OR EDEMA. CAMPA IN PLACE DRAINING YELLOW URINE TO GRAVITY. BED IN LOWEST POSITION AND CALL LIGHT WITHIN REACH. WILL CONTINUE TO MONITOR.
[2019-04-01 07:21] LABS: CALCIUM 9.7 mg/dL (8.5-10.1); CARBON DIOXIDE 22.4 mmol/L (21-32); CHLORIDE SERUM 109 mmol/L (98-107); CREATININE SERUM 0.6 mg/dL (0.6-1.0); GLUCOSE SERUM 136 mg/dL (74-106); SODIUM SERUM 144 mmol/L (136-145)
[2019-04-01 08:21] LABS: BASOPHIL % 0.4 % (0-2); PLATELET COUNT 211 x10^3mcL (130-400)
[2019-04-01 08:34] LABS: RED CELL DISTRIBUTION WIDTH 19.3 % (11.5-14.5)
[2019-04-01 09:02] VITALS: BP 104/45
[2019-04-01 12:23] VITALS: BP 134/60
--- NOTE | 2019-04-01 13:29 | NUR ---
1. Recommend continuing Regular diet. 2. Recommend ONS Ensure BID. This will provide additional 700 kcal and 40g protein/day. Paged Dr. Aden, waiting for call back.
--- NOTE | 2019-04-01 13:29 | NUR ---
Initial Nutrition Assessment: ErickT/A VIC[employer] HR Dx: Anemia, GI Bleed PMHx: multiple sclerosis, dementia, hyperlipidemia, stroke, HTN, UTI PSHx: none Labs: K 3.0L, BG 136H, ALB 2.3L, WBC 12.3H, HGB 9.4L Meds: Ambien, Aricept, atarax, Cardizem, cephulac, ferrous sulfate, lopressor Diet: Regular PO intake since admission: (03/31) dinner, lunch 40%, (03/30) breakfast 10%, (03/29) dinner 100%, lunch 30%, breakfast 70%, (03/28) lunch, dinner 100% Ht: 160.02 cm (63") Wt: 45.1 kg (99#) BMI: 17.6 kg/m2 Bed scale: 99# IBW: 115# (52 kg) %IBW: 86 UBW: 42-46# Age: 78/F Food Allergies: NKFA Skin: optifoam buttocks, BUE ecchymosis Kavon: 15 Edema: none GI: s/p EGD colonoscopy Last BM: 03/31 Per H&P, Pt is a 78 YOF with multiple hospitalizations in the past with PMHx of multiple sclerosis, UTI, presented with generalized weakness. RD Note (04/01): Patient appeared confused and it was not possible to communicate. Per RN Robert, pt has poor PO. Per EGD colonoscopy impression showed prepyloric antral ulcers. RD has evaluated patient several times in last few months due to frequent hospitalizations. Problem with: N/V/D/C: none per RN Problems with: Chewing: Swallowing: none per RN Current appetite: poor per RN Recent wt change: unable to access %wt change: n/a Vitamin/Supplement use: unable to access Special diet at home: unable to access Physical activity: bed bound Nutrition education given: not possible at this time Food-drug interactions: none Education given: n/a Estimated Nutritional Needs Based on current body weight (45 kg) Energy: 0620-8317 kcal/day (35-40 kcal/kg for malnutrition) Protein: 54-63 g/day (1.2-1.4 g/kg for malnutrition) Fluid: 8603-3187 mL/day (1 mL/kcal) Nutrition Diagnosis: 1. Malnutrition related to medical condition, chronic poor PO as evidenced by BMI 17.6 kg/m2 Intervention 1. Recommend continuing Regular diet. 2. Recommend ONS Ensure BID. This will provide additional 700 kcal and 40g protein/day. Paged Dr. Aden, waiting for call back. Monitor/Evaluate Goal: PO intake at least 75% of estimated needs Monitor: PO intake, Labs, GI function F/U in 3-5 days as moderate risk 04/04-
[2019-04-01 16:37] VITALS: BP 157/65
--- NOTE | 2019-04-01 18:17 | NUR ---
PT RESTING IN BED, AXO2, RESP E/U ON 2L NC. DENIES DIZZINESS, SOB OR PAIN, NO ACUTE DISTRESS NOTED. IV TO R HAND W/ NO ERYTHEMA OR EDEMA. CAMPA CATH IN PLACE DRAINING YELLOW URINE TO GRAVITY. BED IN LOWEST POSITION AND CALL LIGHT WITHIN REACH. WILL ENDORSE TO ONCOMING NURSE.
--- NOTE | 2019-04-01 19:30 | NUR ---
PT RECIEVED FROM DAY NURSE. PT RESTING IN BED AT THIS TIME. A/OX1, ORIENTED TO PERSON AT THIS TIME. TELE 8, SINUS RHYTHM AT THIS TIME. DENIES CP, NV, DIZZINESS, OR PALPATIONS. BREATHING E/U ON 2L NC. ABD SOFT AND ROUND, DENIES PAIN TO PALPATION. GENERALIZED WEAKNESS, PT ON AN AIR MATTRESS, REPOSITIONS SELF. ECCYMOSIS NOTED TO BUE. IV TO RH. CDI. BED AT LOWEST POSITION. CALL LIGHT WITHIN REACH. WILL CONTINUE TO MONITOR.
[2019-04-01 19:37] VITALS: BP 156/57
[2019-04-02 05:48] VITALS: BP 147/61
--- NOTE | 2019-04-02 06:22 | NUR ---
PT RESTING IN BED AT THIS TIME. DENIES PAIN OR DISCOMFORT. NO S/S OF ACUTE DISTRESS AT THIS TIME. ALL NEEDS AND CONCERNS ADDRESSED THIS SHIFT. BED AT LOWEST POSITION. CALL LIGHT WITHIN REACH. WILL ENDORSE TO DAY NURSE.
--- NOTE | 2019-04-02 07:29 | NUR ---
RECEIVED PT LYING IN BED A/A. BREATHING EQUAL/UNLABORED ON 2L/NC. NO ACUTE PAIN/ DISTRESS. IV WAS OUT WITH CATHETER INTACT, NO REDNESS/ SWELLING TO SITE. CAMPA CATHETER FLOWING TO GRAVITY WITH YELLOW URINE. OPTIFOAM TO COCCYX. BED IN LOW POSITION, CALL LIGHT IN REACH, SAFETY PRECAUTIONS IN PLACE. WILL CONTINUE TO MONITOR
[2019-04-02 08:25] VITALS: BP 166/86
[2019-04-02 11:42] VITALS: BP 156/78
--- NOTE | 2019-04-02 11:44 | NUR ---
PT LYING IN BED A/A. BREATHING EQUAL/UNLABORED ON RA. NO ACUTE PAIN/ DISTRESS. NO REDNESS/SWELLING TO IV SITE. CAMPA FLOWING TO GRAVITY WITH YELLOW URINE. BED IN LOW POSITON, CALL LIGHT IN REACH, SAFETY PRECAUTIONS IN PLACE. WILL CONTINUE TO MONITOR
--- NOTE | 2019-04-02 15:13 | NUR ---
PT BROUGHT DOWN TO CT IN BED. NO ACUTE DISTRESS
--- NOTE | 2019-04-02 15:26 | NUR ---
PT BACK FROM CT. NO ACUTE DISTRESS. PT RESTING IN BED A/A. BREATHING EQUAL/UNLABORED ON 2 L/NC. CAMPA FLOWING TO GRAVITY WITH YELLOW URINE. NO REDNESS/SWELLING TO IV SITE. BED IN LOW POSITION, CALL LIGHT IN REACH, SAFETY PRECAUTIONS IN PLACE. WILL CONTINUE TO MONITOR
--- NOTE | 2019-04-02 16:16 | NUR ---
CALLED AND REPORTED CT HEAD RESULTS TO DR. HAGEN. DR. HAGEN STATED TO D/C ALL BLOOD THINNERS AND THAT HE WOULD COMMUNICATE WITH THE PATIENTS REGARDING THE RESULTS AND COURSE OF ACTION.
[2019-04-02 16:25] VITALS: BP 182/84
[2019-04-02 17:39] VITALS: BP 141/68
--- NOTE | 2019-04-02 18:48 | NUR ---
PT LYING IN BED A/A. BREATHING EQUAL/UNLABORED ON RA. NO ACUTE PAIN/ DISTRESS. CAMPA FLOWING TO GRAVITY WITH YELLOW URINE. OPTIFOAM TO COCCYX, CDI. IV INFUSING, NO REDNESS/ SWELLING TO IV SITE. BED IN LOW POSITION, CALL LIGHT IN REACH, SAFETY PRECAUTIONS IN PLACE. WILL ENDORSE TO NIGHT NURSE
--- NOTE | 2019-04-02 19:05 | NUR ---
CARE ASSUMED FROM OUTGOING RN. PT RESTING COMFORTABLY IN BED. FAMILY AT BEDSIDE. NO ACUTE DISTRESS NOTED. EVEN AND UNLABORED RESPIRATIONS ON 2LNC. ON TELE#8 READING SR WITH OCC PAC,PVC. IV PATENT AND INTACT RUNNING POTASSIUM PER EMAR. ALL QUESTIONS AND CONCERNS ANSWERED. BED IN LOWEST POSITION. AIR MATTRESS IN USE. SIDE RAILS UXP2. CALL LIGHT WITHIN REACH. WILL CONTINUE TO MONITOR.
[2019-04-02 19:29] VITALS: BP 142/73
--- NOTE | 2019-04-03 01:24 | NUR ---
PT HAD BM, CLEANED AND REPOSITIONED. NO ACUTE DISTRESS NOTED. EVEN AND UNLABORED RESPIRATIONS ON 2LNC. ON TELE READING SR. OPTIFOAM TO COCCYX, CDI. CAMPA PATENT AND INTACT DRAINING YELLOW URINE VIA GRAVITY, CAMPA CARE DONE. IVL INTACT. BED IN LOWEST POSITION. AIR MATTRESS IN USE. SIDE RAILS UPX2. CALL LIGHT WITHIN REACH. WILL CONTINUE TO MONITOR.
[2019-04-03 04:56] VITALS: BP 148/72
--- NOTE | 2019-04-03 06:42 | NUR ---
PT SLEPT IN INTERVALS THROUGHOUT THE SHIFT. ALL NEEDS TENDED TO NEED. ALL SCHEDULED MEDICATIONS GIVEN. ON TELE# 8 READING SR WITH OCC PAC/PVC. EVEN AND UNLABORED RESPIRATIONS ON 2LNC. IVL PATENT AND INTACT. CAMPA DRAINING YELLOW URINE VIA GRAVITY. ZGUARD AND OPTIFOAM APPLIED TO COCCYX WOUND, CDI. BED IN LOWEST POSITION. AIR MATTRESS IN USE. SIDE RAILS UPX2. CALL LIGHT WITHIN REACH. WILL ENDORSE TO ONCOMING SHIFT.
--- NOTE | 2019-04-03 07:00 | NUR ---
RECEIVED REPORT FROM ANDRZEJ ELKINS RN AT BEDSIDE, PT RESTING IN BED IN NO ACUTE DISTRESS
--- NOTE | 2019-04-03 07:32 | NUR ---
PT RESTING IN BED, IN NO ACUTE DISTRESS, AXO, VERBAL, ABLE TO MAKE NEEDS KNOWN, CALM AND COPPERATIVE, DENIED GUERRERO/DIZZINESS, PERRLA, NO REDNESS/DRAINAGE EENT, RESP EVEN, NO SOB/COUGH, DIM BLL, 2L/MIN, NC, TELE #8, HR-98 AT THIS TIME, DENIED CP/PALPITATION, DENIED PAIN/DISCOMFORT, BS ACTIVE X 4, PALP PULSES, CAP REFILL < 2S, SEE SKIN ASSESSMENT, SKIN C/D/W, IV PATENT AND INFUSING WELL, FC PATENT AND DRAINED WELL, TURN Q2H, BEDREST, LALM, ALL NEEDS ADDRESSED AT THIS TIME, SAFETY PROTOCOL FOLLOWED, CONTINUE TO MONITOR
[2019-04-03 08:02] VITALS: BP 173/72
[2019-04-03 08:16] VITALS: BP 148/72
--- NOTE | 2019-04-03 09:31 | NUR ---
AM MEDs GIVEN PER MD ORDER VIA EMAR, TOLERATED WELL, EDUCATED PT R/T MEDs, ASE AND MONITOR, VERBALLY UNDERSTANDING, ALL NEEDS ADDRESSED AT THIS TIME, SAFETY PROTOCOL FOLLOWED, CONTNUE TO MONITOR
--- NOTE | 2019-04-03 09:59 | NUR ---
CALLED AND GOT UPDTED W/ PT TODAY CONDITION, VISITED BY SON AT BEDSIDE, PT RESTING IN BED IN NO ACUTE DISTRESS, CONTINUE TO MORENITA
--- NOTE | 2019-04-03 11:34 | NUR ---
SEEN BY HOSPICE NURSE BRIDGET NINO FROM [facility], SAID WILL DISCUSS W/ FAMILY R/T DC PLAN AND ARRANGEMENT W/ HOSPICE PER DR HAGEN ORDER, FAMILY MADE AWARE, CONTACT INFO AT [phone], CHARGE NURSE YOLY MADE AWARE
[2019-04-03 12:06] VITALS: BP 119/64
--- NOTE | 2019-04-03 13:30 | NUR ---
SON AND DAUGHTER AT BEDSIDE, PER DAUGHTER, PT WILL GO HOME TO HER HOUSE AFTER DC HOME, [facility] NURSE YOLY MADE AWARE, CONTINUE TO MOTNIOR
--- NOTE | 2019-04-03 14:10 | NUR ---
PER DAUGHTER, PT WILL BE DC TO DAUGHTER'S HOUSE WITH F/U CARE OF [facility], GRECIA FROM [facility] WILL F/U W/ THIS CASE AND NOTIFY WHEN ARRANGEMENT AT HOME WILL BE MADE SIDNEY AT [phone], CHARGE NURSE YOLY MADE AWARE
[2019-04-03 15:15] VITALS: Ht 160 cm; Wt 45.1 kg
[2019-04-03 16:22] VITALS: BP 120/59
--- NOTE | 2019-04-03 17:06 | NUR ---
CALLED AND GAVE AUTHORIZATION TO HOSPITAL TO RELEASE INFORMATION TO PT'S DAUGHTER GRECIA, PER , PT WILL DC HOME WITH HOSPICE AND WILL STAY AT DAUGHTER GRECIA HOUSE AND HE WILL COME TO VISIT TOMORROW OR SIDNEY, GRECIA AND PT MADE AWARE, DAUGHTER MADE AWARE
--- NOTE | 2019-04-03 17:21 | NUR ---
PT RESTING IN BED, IN NO ACUTE RESP DISTRESS, VERBAL, ABLE TO MAKE NEEDS KNOWN, NO FACIAL DROOP/SLURRED SPEECH NOTED, RESP EVEN, NO SOB, 2L/MIN, NC, 97%, TELE #8, DENIED CP/PALPITATION, DENIED PAIN/DISCOMFORT, FC PATENT AND DRAINED WELL, IV PATENT AND FLUSHING WELL, ALL NEEDS ADDRESSED, DAUGHTER GRECIA AT BEDSIDE, COMFORT MEASURE PROVIDED, LALM, TURN Q2H, SCDs, SAFETY PROTOCOL MAITAINED, WILL ENDORSE TO ONCOMING RN
--- NOTE | 2019-04-03 18:12 | NUR ---
PT REQUESTED [employer] FOR DINNER, CREW PERSON MADE AWARE, SAID WILL PROVIDE SIDNEY, PT AND FAMILY MADE AWARE
--- NOTE | 2019-04-03 20:00 | NUR ---
PT A/A/O X1, FOLLOWS COMMANDS, ABLE TO MAKE NEEDS KNOWN. HOSPICE NURSE AND DAUGHTER AT BEDSIDE. PT DENIES DIZZINESS AND HEADACHE. BREATH SOUNDS CONGESTED JODI LUNGS. BREATHING EVEN AND UNLABORED ON 2L NC, SPO2 96%. DENIES CHEST PAIN AND PRESSURE. RIGHT SIDED WEAKNESS NOTED. BOWEL SOUNDS ACTIVE. NO C/O N/V AND ABD PAIN. SCATTERED ECHYMOSIS NOTED ON BUE. WOUND ON COCCYX WITH OPTIFOAM NOTED C/D/I. IV INTACT ON THE RIGHT HAND. CAMPA CATH IN PLACE AND EMPTY. PT WAS [id number] TO BE DC'D BY 2029. BUT THE DAUGHTER OF THE PATIENTS HOUSE IS NOT READY FOR THE PT. SO THE DC WILL BE APR 04, 2019. MADE PT COMFORTABLE. PLACED CALL LIGHT WITH IN REACH. WILL CONTINUE TO MONITOR.
[2019-04-03 20:52] VITALS: BP 131/50
--- NOTE | 2019-04-04 00:45 | NUR ---
PT RESTING WITH EYES CLOSED. NO DISTRESS AND DISCOMFORT NOTED. WILL CONTINUE TO MONITOR.
[2019-04-04 05:49] VITALS: BP 123/61
--- NOTE | 2019-04-04 06:38 | NUR ---
PT QUIET AND RESTING. NO SIGNIFICANT CHANGES NOTED. MADE PT COMFORTABLE. WILL ENDORSE TO THE AM NURSE ACCORDINGLY.
--- NOTE | 2019-04-04 06:49 | NUR ---
PATIENT DRESSING CHANGED ON THE COCCYX AREA WITH OPTIFOAM. PT TOLERATED IT WELL. WILL ENDORSE TO THE AM NURSE ACCORDINGLY.
--- NOTE | 2019-04-04 07:00 | NUR ---
RECEIVED REPORT FROM JEAN RN AT BEDSIDE, PT RESTING IN BED IN NO ACUTE DISTRESS
--- NOTE | 2019-04-04 07:30 | NUR ---
PT RESTING IN BED, IN NO ACUTE DISTRESS, AXO, VERBAL, ABLE TO MAKE NEEDS KNOWN, CALM AND COPPERATIVE, DENIED GUERRERO/DIZZINESS, PERRLA, NO REDNESS/DRAINAGE EENT, RESP EVEN, NO SOB/COUGH AT THIS TIME, DIM BLL, 2L/MIN, NC, TELE #8, HR-94 AT THIS TIME, DENIED CP/PALPITATION, DENIED PAIN/DISCOMFORT, BS ACTIVE X 4, PALP PULSES, CAP REFILL < 2S, SEE SKIN ASSESSMENT, SKIN C/D/W, IV PATENT AND INFUSING WELL, FC PATENT AND DRAINED WELL, TURN Q2H, BEDREST, LALM, SKIN PICS TAKEN PRIOR DC, ALL NEEDS ADDRESSED AT THIS TIME, SAFETY PROTOCOL FOLLOWED, CONTINUE TO MONITOR
[2019-04-04 08:58] VITALS: BP 184/84
--- NOTE | 2019-04-04 09:10 | NUR ---
AM MEDs GIVEN PER MD ORDER VIA EMAR, TOLERATED WELL, NO ASE NOTED AT THIS TIME, EDUCATED PT R/T MEDs, ASE AND MONITOR, VERBALLY UNDERSTANDING, ALL NEEDS ADDRESSED, SAFETY PROTOCOL MAINTAINED, CONTINUE TO MONTIOR
[2019-04-04 10:34] VITALS: BP 142/76
--- NOTE | 2019-04-04 10:42 | NUR ---
CALLED [facility] FOR TELEPHONE CONSENT OF DC, PT DC HOME TO DAUGHTER GRECIA ENRIQUEZ, COSIGNED W/ ADELITA RN, TELE REMOVED AND RETURNED TO [facility], IV REMOVED, IV CATH TIP INTACT, NO ACTIVE BLEEDING NOTED, PT RESTING IN BED, IN NO ACUTE DISTRESS, AWAITING FOR TRANSPORT AT 11AM
--- NOTE | 2019-04-04 11:37 | NUR ---
PT P/U BY [facility], IN NO ACUTE DISTRESS, 2L/MIN, NC, V/S: 142/75, 98, 16, 97.1, 0/10, 97%
--- NOTE | 2019-04-06 08:38 | NUR ---
ECHOCARDIOGRAM NOT DONE-DISCHARGED
== END 2019-04-04 11:46 | disposition hospice, home (50) | DRG 64 ==
LOC: ED 04:08 → EDBEDREQ 06:06 → DU 06:06
PROVIDERS: Internal Medicine Gastroenterology; Specialist; ADMIT Internal Medicine
PROC: 30233N1 Transfusion of Nonautologous Red Blood Cells into Peripheral Vein, Percutaneous Approach (ICD-10-PCS; 2019-03-28)
PROC: 0DB68ZX Excision of Stomach, Via Natural or Artificial Opening Endoscopic, Diagnostic (ICD-10-PCS; principal; 2019-03-31 09:00)
PROC: 0DJD8ZZ Inspection of Lower Intestinal Tract, Via Natural or Artificial Opening Endoscopic (ICD-10-PCS; 2019-03-31 09:00)
DX: I62.01 Nontraumatic acute subdural hemorrhage (principal); I21.A1 Myocardial infarction type 2; J18.9 Pneumonia, unspecified organism; I21.9 Acute myocardial infarction, unspecified; K92.2 Gastrointestinal hemorrhage, unspecified; N39.0 Urinary tract infection, site not specified; K76.6 Portal hypertension; J90 Pleural effusion, not elsewhere classified; Z68.1 Body mass index [BMI] 19.9 or less, adult; D50.0 Iron deficiency anemia secondary to blood loss (chronic); K31.89 Other diseases of stomach and duodenum; I48.91 Unspecified atrial fibrillation; F03.90 Unspecified dementia, unspecified severity, without behavioral disturbance, psychotic disturbance, mood disturbance, and anxiety; G35 Multiple sclerosis; Z86.73 Personal history of transient ischemic attack (TIA), and cerebral infarction without residual deficits; Z66 Do not resuscitate
CPT/HCPCS: 43235; 45378; 83880; 84439; 87804; 97116-GP; C9113; G0378; J0360; J0610; J0696; J1160; J1200; J1610; J1940; J2250; J2270; J2310; J2543; J3010; J3475; J3480; J3490; J7030; J7040; P9016; Q0092